=== PATIENT | male | born 1960 | race Caucasian/White ===

== ENCOUNTER 2021-11-24 14:02 | Outpatient (REF) | payer OTHER, SELFPAY ==
[2021-11-26 07:07] LABS: Lyme Abs Screen <0.90 index
== END 2021-11-24 14:03 | disposition home or self-care (01) ==
LOC: HO.MANLDS 14:02
PROVIDERS: PCP Physician Assistant; Visit Provider Physician Assistant
DX: T14.8XXA Other injury of unspecified body region, initial encounter (principal); L08.9 Local infection of the skin and subcutaneous tissue, unspecified; W57.XXXA Bitten or stung by nonvenomous insect and other nonvenomous arthropods, initial encounter; Y93.9 Activity, unspecified; Y92.9 Unspecified place or not applicable; Y99.9 Unspecified external cause status
CPT/HCPCS: 36415; 86617; 86618

== ENCOUNTER 2022-05-14 09:24 | Outpatient (REF) | payer OTHER, SELFPAY ==
[2022-05-14 11:10] LABS: MANUAL DIFF FLAG NO
[2022-05-14 11:19] LABS: Basophils Absolute Auto 0.1 X10*3/uL (0.0-0.2); Basophils Percent Auto 0.9 % (0-2); Eosinophils Absolute Auto 0.1 X10*3/uL (0.0-0.4); Hemoglobin 16.2 g/dl (14.0-18.0); Imm Gran Abs Auto 0.02 X10*3/uL (0.00-0.03); Imm Gran Pct Auto 0.3 % (0.0-0.4); Lymphocytes Absolute Auto 1.6 X10*3/uL (1.2-4.9); Lymphocytes Percent Auto 24.3 % (20-40); Mean Corpuscular HGB Conc 32.4 g/dl (31.0-36.0); Mean Corpuscular Hemoglobin 28.3 pg (27.0-33.0); Mean Corpuscular Volume 87.3 fL (80.0-98.0); Mean Platelet Volume 11.9 fL (9.4-12.4); Monocytes Absolute Auto 0.5 X10*3/uL (0.1-1.2); Monocytes Percent Auto 7.2 % (2-11); Neutrophils Absolute Auto 4.2 x10*3/uL (2.0-8.3); Neutrophils Percent Auto 65.3 % (45-73); Platelet Count 209 X10*3/uL (160-400); Red Blood Count 5.73 X10*6/uL (4.60-5.80); Red Cell Distribution Width 13.4 % (11.0-16.0); White Blood Count 6.4 X10*3/uL (4.8-10.8)
[2022-05-14 11:28] LABS: Estimated Average Glucose 117 mg/dL; Hemoglobin A1c % 5.7 %
[2022-05-14 11:46] LABS: Alanine Aminotransferase 92 U/L (0-40); Albumin Level 4.4 g/dL (3.5-5.0); Alkaline Phosphatase 68 U/L (39-117); Anion Gap 16 (12-20); Aspartate Amino Transferase 51 U/L (5-37); Bilirubin Total 0.8 mg/dL (0.0-1.0); Blood Urea Nitrogen 24 mg/dL (9-16); Calcium 9.7 mg/dL (8.4-10.2); Carbon Dioxide 26 mmol/L (22-29); Chloride 106 mmol/L (96-108); Cholesterol 211 mg/dL; Estimated Glomerular Filt Rate > 60; Glucose Random 110 mg/dL (60-115); HDL Cholesterol 48 mg/dL; LDL Cholesterol Calculated 140 mg/dl; Potassium 5.5 mmol/L (3.3-5.1); Sodium 142 mmol/L (135-145); Total Protein 7.1 g/dL (6.5-8.0); Triglycerides 117 mg/dL
[2022-05-14 12:07] LABS: Prostate Specific Antigen 0.73 ng/mL (<0.05-4.0); Vitamin D 25-OH Total 20.3 ng/mL (>30)
== END 2022-05-14 09:25 | disposition home or self-care (01) ==
LOC: HO.MANLDS 09:24
PROVIDERS: Visit Provider Internal Medicine
DX: Z00.01 Encounter for general adult medical examination with abnormal findings (principal); Z12.5 Encounter for screening for malignant neoplasm of prostate
CPT/HCPCS: 36415; 80053; 80061; 82306; 83036; 84153; 84443; 85025

== ENCOUNTER 2022-06-07 09:27 | Outpatient (REF) | payer OTHER, SELFPAY ==
[2022-06-07 11:24] LABS: Alanine Aminotransferase 83 U/L (0-40); Albumin Level 4.3 g/dL (3.5-5.0); Alkaline Phosphatase 70 U/L (39-117); Anion Gap 17 (12-20); Aspartate Amino Transferase 39 U/L (5-37); Bilirubin Direct 0.2 mg/dL (0.0-0.5); Bilirubin Total 0.8 mg/dL (0.0-1.0); Blood Urea Nitrogen 25 mg/dL (9-16); Calcium 9.4 mg/dL (8.4-10.2); Carbon Dioxide 26 mmol/L (22-29); Chloride 102 mmol/L (96-108); Estimated Glomerular Filt Rate > 60; Glucose Random 108 mg/dL (60-115); Potassium 4.6 mmol/L (3.3-5.1); Sodium 140 mmol/L (135-145); Total Protein 6.9 g/dL (6.5-8.0)
== END 2022-06-07 09:28 | disposition home or self-care (01) ==
LOC: HO.MANLDS 09:27
PROVIDERS: Visit Provider Internal Medicine
DX: R74.8 Abnormal levels of other serum enzymes (principal)
CPT/HCPCS: 36415; 80053; 82248

== ENCOUNTER 2024-05-21 12:43 | Outpatient (REF) | payer OTHER, SELFPAY ==
--- NOTE | ~2024-05-21 | XR_ITS ---
EXAMINATION: XR LUMBOSACRAL SPINE CLINICAL INFORMATION: M54.9 - Dorsalgia, unspecified COMPARISON: None available. TECHNIQUE: 4 views of the lumbar spine, inclusive of flexion and extension views, were obtained. FINDINGS: Normal bone mineralization. No fracture, compression deformity, or suspicious bone lesion. Trace levoconvex scoliosis apex at L4-5. Mild straightening of the normal lordosis. There is a trace degenerative anterolisthesis L3 on L4 and L4 on L5. Moderate degenerative disc changes L2-3-4 and L4-5. There has been fusion and discectomy with disc grafting at L5-S1. Degenerative facet changes are present spanning L3-S1. There is no developing or worsening subluxation on flexion-extension views to suggest instability. Soft tissues demonstrate minimal vascular calcifications. No additional abnormalities. XR/XR lumbar spine 4V min IMPRESSION: 1. No acute findings lumbar spine. 2. Discectomy and fusion L5-S1 without complication radiographically. 3. Degenerative spondylosis most significant L3-S1, with no evidence of instability on flexion and extension. Electronically signed by: Milan Mejia MD 07/29/2024 02:36 PM EST
== END 2024-05-21 12:44 | disposition home or self-care (01) ==
LOC: HO.HOSX 12:43
PROVIDERS: PCP Physician Assistant; Visit Provider Physician Assistant
DX: M54.9 Dorsalgia, unspecified (principal)
CPT/HCPCS: 72110

== ENCOUNTER 2024-05-21 12:43 | Outpatient (AMB) | payer OTHER, SELFPAY ==
--- NOTE | 2024-05-21 12:56 | A.SPINEOV_ITS ---
Intake Visit Reasons: LBP Intake Note: Mr. Hernández is here today c/o low back pain. 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 He is a 64-year-old gentleman who underwent an anterior lumbar interbody fusion at [facility] 17 years ago, had excellent results from that, started to develop worsening back pain and pain shooting down his left leg over time. He saw Dr. Lara at [facility] last year and underwent an L4-5 decompression on the left side which did help him for about 3 months with relief of his leg pain. It did not help his back pain however. Unfortunately he started to have worsening back pain now with pain shooting again down into his left buttock. 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 Unfortunately, [facility] point where the pain is becoming a major factor in his quality of life. He is seeking out a 2nd opinion as to whether or not surgery would be beneficial. He continues to work, but he can not be active for more than brief periods of time. He will try things like Lyrica in the evenings if he is having a real bad night. He tries to avoid this as it does give him side effects. Any bending or prolonged standing walking will give him significant pain in his central low back and shoots to his left buttock. Currently he takes diclofenac and as mentioned Lyrica if needed. [facility] Unfortunately the decrease in activity has made him gain weight. He has been to a chiropractor. He had tried cortisone injections years ago but nothing recently. Unfortunately they never really did much anyway. PMH: He is reasonably healthy otherwise, history of hypertension, L5-S1 anterior lumbar interbody fusion hernia repair in the groin, torn meniscus repair, carpal tunnel surgery. No heart disease, pulmonary, liver, GI, renal, bleeding disorders, blood clots, cancer etc.. Social hx: He does not smoke, occasional alcohol, no marijuana Medications: Diclofenac, losartan and Lyrica Allergies: None Physical exam: Awake alert oriented no acute distress, he has full strength bilateral lower extremities with normal reflexes. Has a well-healed vertical abdominal incision which is just to the left of his umbilicus. He has a well healed midline scar on his low back as well. Imaging review: There is a lumbar MRI from [facility] from 2022 showing postsurgical changes at L5-S1 with evidence of solid fusion construct. At L4-5 there is a left-sided laminotomy defect with postsurgical changes. I do see ongoing disc bulging causing some crowding of the central canal but the lateral recess with the L5 nerve passes through looks open. He does have Modic endplate changes on the right side with what looks like a Schmorl's node or a herniated disc up into the bone. Impression: 64-year-old male with history of previous anterior lumbar interbody fusion at L5-S1 17 years ago, who a few years ago started to develop back pain and left leg pain, underwent a left L4-[address] lara last year. It helped his leg pain for about 3 months but unfortunately the pain has come back. What he is dealing with now has a central midline back pain which radiates down into his left buttock. It is aggravated with standing walking but particularly bending can be quite difficult. Simple activities are difficult to get through such as yd work and basic physical activity. I went through his imaging with him, he does have advanced degeneration above the fusion at L4-5, with central disc herniation, crowding of the central canal. The lateral recess which was decompressed still appears to be adequately decompressed. This MRI however is a year old. I sent the patient for standing flexion-extension x-rays and I do not see any signs of overt instability but compared to the previous x-rays that were loaded onto the CD disc that he brought with him today I can see compared to 2019 there has been a slow progressive collapse of the disc on the right side at L4-5. 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 I think if we obtained a new MRI we would see that things are slightly worse than they were last year. If he consider surgery I think we should get a new MRI. Typically this is something that Dr. Ramon would treat with L4-5 oblique lumbar interbody fusion. He understands that a 2nd fusion would put him again at risk for further adjacent segment disease at L3-[address] I quoted success rate for the surgery at 60-70% for improvement in the back pain. We did briefly discuss risks, benefits of surgery. Will get back to me and let me know how he wishes to proceed. Thank you for allowing us to care for your patient. The total time spent with this visit with this patient was 45 minutes reviewing history, physical exam, lumbar imaging review, and implementation of treatment plan or further diagnostic testing Maxim Ramon MD,PhD [facility] Orders: Orders XR lumbar spine 4V min Today M54.9 - Dorsalgia, unspecified Coding Level of Care Code New Pt Level 4 (77274) Diagnoses Back pain M54.9
== END 2024-05-21 14:48 | disposition home or self-care (01) ==
PROVIDERS: PCP Physician Assistant; Referring Provider Physician Assistant; Visit Provider Physician Assistant
DX: M54.9 Dorsalgia, unspecified (principal)
CPT/HCPCS: 99204

== ENCOUNTER → 2024-05-21 13:36 | Outpatient (BNV) | payer OTHER, SELFPAY | PROVIDERS: PCP Physician Assistant; Visit Provider Radiology Diagnostic Radiology | DX: M47.896 Other spondylosis, lumbar region (principal) | CPT/HCPCS: 72110 ==

== ENCOUNTER 2024-11-02 14:48 | Outpatient (AMB) | payer OTHER, SELFPAY ==
--- NOTE | 2024-11-02 14:53 | A.SPINEOV_ITS ---
Vital Signs 11/02/24 14:54 Height 5 ft 10 in Weight 255 lb BMI 36.6 Intake Visit Reasons: discuss other treatment options Intake Note: Mr. Hernández is here to Discuss Surgery Guest Associate Required: No Physical Exam Vital Signs: BMI result Body Mass Index 36.6 Assessment & Plan Assessment & Plan (1) Back pain: Code(s): M54.9 - Dorsalgia, unspecified Category: Medical Plan Mr Hernández is here to follow-up. Please refer to my last note for the specifics of his problem. He underwent an anterior lumbar interbody fusion at L5-S1 [facility] t 20 years ago (no posterior instrumentation) with good success. In the last few years he has developed increasing back pain with left leg pain. Dr. Lara did a simple hemilaminotomy form in that helped slightly, but he is still having significant back pain in the center of his lower lumbar region. It is particularly bad when he is trying to stand, get up move around, bend or do any work in a flexed posture. Dr. Ramon and I previously reviewed his MRI done at [facility] showing adjacent segment disease and further disc collapse at L4-5 with disc degeneration. At the time of my original visit, he was hoping to avoid surgery because he was somewhat worried about the instrumentation giving him back pain. He came back today because the pain is now just getting to the point where it is intolerable. He has been through physical therapy, his chiropractor told him he could not help him any longer, he has lost 20 lb, he has been through injections at length, nonsteroidal anti- inflammatories, Tylenol etc. and he just can not get comfortable. He is still does have some of the lumbar radiculopathy from about the calf down to his foot, but the main complaint is the back pain. Dr. Ramon previously reviewed his films and thought he would be a good candidate for an oblique lumbar interbody fusion L4-5. He came back today to review that procedure at length. We disc ussed the procedure, using spine models and imaging on the computer outlining the procedure, approach. We discussed the recovery and the success rate for surgery, quoting at about 60-70%. The patient is interested in proceeding with surgery. His last MRI was from 2022 so I told him I would need updated lumbar MRI before we could consider surgery. Also, he did have standing x-rays done here at [facility]. These do show disc degeneration above his fusion. I will have him come back to the office on a day when Dr. Ramon is here to review the new MRI and discuss surgery again. Total amount of time spent in this visit was 20 minutes in discussion of symptoms, lumbar MRI imaging results and subsequent plan of care Maxim Ramon MD,PhD [facility] Orders: Orders MR lumbar spine wo con Today M54.9 - Dorsalgia, unspecified Coding Level of Care Code Est Pt Level 3 (77224) Diagnoses Back pain M54.9
[2024-11-02 14:54] VITALS: BMI 36.6
--- OUTSIDE RECORDS SUMMARY | 2024-11-02 16:16 | XMS_ITS | Data Portability ---
Author Organization [facility] Address [address] [place] [address] Assessment Encounter Date Assessment Date Assessment LastModified by Organization Details LastModified Time 05/13/2023 05/13/2023 [id number] [place] [id number] (SECURITY TECHNICIAN) MDM MODERATE MUST MEET 2 OUT OF 3 ELEMENTS: PROBLEMS, DATA OR RISK ELEMENT 1: PROBLEMS ADDRESSED 1 OR MORE CHRONIC ILLNESS WITH EXACERBATION OR 2 OR MORE STABLE CHRONIC ILLNESSES OR 1 UNDIAGNOSED NEW PROBLEM OR 1 ACUTE ILLNESS W/SYMPTOMS OR 1 ACUTE COMPLICATED INJURY ELEMENT 2: DATA MUST MEET 1 OF 3 CATEGORIES CATEGORY 1: REVIEW OF PRIOR EXTERNAL NOTES, REVIEW OF RESULTS, ORDERING OF EACH TEST, ASSESSMENT REQUIRING INDEPENDENT HISTORIAN OR CATEGORY 2: INDEPENDENT INTERPRETATION OF TESTS BY ANOTHER PHYSICIAN OR SPECIALIST OR CATEGORY 3: DISCUSSION OF MGT OR TEST INTERPRETATION W/EXTERNAL PHYSICIAN OR SPECIALIST ELEMENT 3: RISK RISK OF COMPLICATIONS AND/OR MORBIDITY OR MORTALITY OF PATIENT MANAGEMENT PROVIDER MUST THOROUGHLY DOCUMENT EACH ELEMENT THAT IS COVERED [email or web address] Not available 05/13/2023 16:09:27 Plan of Treatment Reminders Order Date Submit Date Provider Last Modified By Organization Details Last Modified Time Details Appointments ANNUAL EXAM 2024 11:30A M DR OBREGON Not available Not available Not available Lab CMP, serum or plasma 2023 MO[facility] (Centralized Electronic Ordering - All Locations), Patient Can Go To The Location Of Their Choice, [id number] 05/30/2024 04:21:32 CBC w/ auto diff 2023 MO[facility] (Centralized Electronic Ordering - All Locations), Patient Can Go To The Location Of Their Choice, [id number] 05/30/2024 04:21:32 PSA, serum or plasma 10/01/ 2024 10/01/2 024 MO[facility] (Centralized Electronic Ordering - All Locations), Patient Can Go To The Location Of Their Choice, [id number] 05/30/2024 04:21:32 lipid panel, blood 2023 024 MO[facility] (Centralized Electronic Ordering - All Locations), Patient Can Go To The Location Of Their Choice, [id number] 05/30/2024 04:21:32 vitami n D, 25-hyd stacey, total, serum 2023 024 MO[facility] (Centralized Electronic Ordering - All Locations), Patient Can Go To The Location Of Their Choice, [id number] 05/30/2024 04:21:31 HbA1c (hemog lobin A1c), blood 2022 023 [facility], [address] [place] [address], [place], [address], 05/17/2023 10:55:25 HbA1c (hemog lobin A1c), blood 2022 023 [facility], [place], [address], 05/16/2023 12:47:20 Referral gastro entero logist referr al 2023 024 [facility] , [address] [place] [address], [address], 03/30/2024 09:50:18 orthop edic surgeo n referr al 2023 024 [email or web address] 10 Macario Glez MD, [address] [place] [address], [address], 05/02/2024 08:25:18 orthop edic surgeo n referr al 2022 023 [email or web address] 10 [facility] (Damian Ybarra), [address] [place], [address], 12/10/2022 08:53:51 Procedures None record ed. Surgeries None record ed. Imaging MRI, lumbar spine, w/o contra st - Call Refere nce #: Rajat Nickerson 2022Keeley soluti on: Piyush tripp on 2022 at 11:10 am. Call ref #Rajat Nickerson 2022. 2022 023 [email or web address] 10 Not available 12/13/2022 08:33:18 MRI, thorac ic spine, w/o contra st - Call Refere nce #: Baylee [email or web address] 23Reso lution : Piyush tripp on 2022 at 10:16 am. Call ref #Levy [email or web address] 123. 2022 023 [email or web address] 10 Not available 12/13/2022 08:35:30 Medication Orders predni sone 10 mg tablet 2023 024 [facility]1234, [address] [place], [address], 05/22/2024 11:18:37 pregab brendan 75 mg capsul e 2022 023 [facility], [address], [place], [address], 05/13/2023 16:11:10 diclof enac sodium 75 mg tablet ,delay ed releas e 2022 023 [facility], [address] [place], [address], 05/13/2023 16:11:10 tramad ol 50 mg tablet 2022 023 [email or web address] [facility]/Pharmacy #1234, [address], [place], [address], 03/27/2024 14:28:56 predni sone 10 mg tablet 2022 023 [email or web address] [facility]/Pharmacy #1234, [address] [place], [address], 03/27/2024 14:28:21 Patient TargetsNo targets recorded. Patient InstructionsNo instructions recorded. Reason for Referral Orthopedic Surgeon Referral for Lumbar radiculopathy hx of spinal surgery with Dr. Galo; worsening symptoms Referring Physician: Francoise Paz, Internal Medicine, Encounter Date: 12/08/2022 Orthopedic Surgeon Referral for Degeneration of lumbar intervertebral disc second opinion for neuro surg consult for lumbar spine pain and reduced function Referring Physician: Francoise Paz, Internal Medicine, Encounter Date: 03/27/2024 Drum Plater Referral for Diarrhea Referring Physician: Francoise Paz, Internal Medicine, Encounter Date: 03/27/2024 Results Created Date Observation Date Name Description Value Unit Range Abnormal Flag Note LastModifiedBy Organization Detail LastModifiedTime 01/02/2012/29/2022 MRI, thora cic spine , w/o contr ast No observ ation record ed. [email or web address] [facility] (Scheduling Dept) [address] [place], [address], 05/13/2023 15:56:15 01/02/20 23 12/29/2022 MRI, thora cic spine , w/o contr ast No observ ation record ed. [email or web address] [place] [address] - Outpatient Radiology [address] [place] [address] , [place], [address], 05/13/2023 15:56:15 07/29/20 24 05/21/2024 XR, lumbo sacra l spine , 2 or 3 view No observ ation record ed. [address] [place], [address], 07/29/2024 20:07:04 Result Notes None recorded. Problems Name Problem SNOMED Code Status Onset Date Resolution Date Notes Provider Name and Address Organization Details Recorded Time Bilatera l carpal tunnel syndrome 01022789835 781667 Active 2018 Fortino Obregon, [address] [place], [address], [facility] 9 16:07:08 Osteoart hritis of right knee joint 45013745779 9100 Active 2021 Fortino Obregon, DO [address] [place] [address], [address], [facility] 2 15:35:03 Pain of right knee joint 80341076059 4100 Active 2021 Fortino Segovia Deniseha, DO [address] [place] [address], [address], [facility] 2 08:42:43 Dyspnea on exertion 56935508 Active 2021 Fortino YeungHilary Obregon, DO [address] [place] [address], [address], [facility] 2 10:37:46 Hyperkal emia 47190002 Active 2021 Fortino Obregon, DO [address] [place] [address], [address], [facility] 2 13:39:57 Liver enzymes level above referenc e range 820049900 Active 2021 Fortino Obregon, DO [address] [place] [address], [address], [facility] 2 09:01:34 Osteoart hritis 638874365 Active 2021 RASHMI BOLES [address] [place] [address], [address], [facility] 2 13:45:53 Paresthe yusuf of lower extremit y 082855478 Active 2022 Fortino Obregon, DO [address] [place] [address], [address], [facility] 3 16:21:27 Lumbar radiculo rhina 490773150 Active 2022 RASHMI BOLES [address] [place] [address], [address], [facility] 3 11:34:07 Spinal stenosis of lumbar region 90973654 Active 2022 RASHMI BOLES [address] [place], [address], [place] [facility] 3 10:08:17 Hypergly cemia 34440822 Active 2022 Fortino Obregon, DO [address] [place], [address], [facility] 3 16:09:47 Gastroes ophageal reflux disease 984693112 [facility] 09:26:44 Steatosi s of liver 034756951 Active 2017 [facility] 8 09:26:53 History of spinal fusion 71449306934 107 Active 2017 [facility] 8 09:27:03 Hyperten sive disorder 15294683 Active 2017 [facility] 8 09:27:07 Osteopen ia 332804104 Active 2017 [facility] 8 09:27:13 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 44831401 Active 2017 [facility] 8 09:27:53 History of hernia repair 56799445476 109 Active 2017 incarcera tripp L inguinal [facility] 8 09:28:36 Allergic rhinitis 76486665 Active 2017 Jonelle maguire [facility] 8 09:28:42 Gout 91044826 Active 2023 Fortino Obregon, DO [address] [place], [address], [facility] 4 13:40:53 Degenera tion of lumbar interver tebral disc 19575905 Active 2023 RASHMI BOLES [address] [place], [address], [facility] 4 14:43:39 Diarrhea 37407124 Active 2023 RASHMI BOLES [address] [place], [address], [facility] 4 14:53:19 Edema of lower extremit y 989304706 Active 2017 Fortino Obregon DO [address] [place], [address], [facility] 8 14:19:49 Problem Notes None recorded. Procedures Surgical History Date Name Laterality Status Provider Name and Address Organization Details Recorded Time 024 Colonoscopy completed Fortino Obregon DO [address] [place] [address], [address], [facility] 06/28/2024 20:54:11 022 Corticosteroid Injection completed Fortino Obregon DO [address] [place] [address], [address], [facility] 12/25/2021 15:37:16 Imaging Results Imaging Date Name Status LastModified by Organiz ation Details LastModified Time 12/29/2022 MRI, thoracic spine, w/o contrast completed [address] (Scheduling Dept) [address] [place], [address], 05/13/2023 15:56:15 12/29/2022 MRI, thoracic spine, w/o contrast completed [address] - Outpatient Radiology [address] [place] [address] [place], [address], 05/13/2023 15:56:15 05/21/2024 XR, lumbosacral spine, 2 or 3 view completed [address] [place], [address], 07/29/2024 20:07:04 Procedure Notes None recorded. Medical Equipment None Reported. Allergies No known drug allergies Medications Name Sig Start Date Stop Date Status Note LastModified by Organization Details LastModified Time losartan 50 mg tablet TAKE 1 TABLET BY MOUTH EVERY DAY 2024 active Not Available Not Available Not Avai lable prednisone 10 mg tablet TAKE 5 TABS BY MOUTH X 2 DAYS,4 TABS X 2 DAYS,3 TABS X 2 DAYS,2 TABS X 2 DAYS,THEN 1 TAB X 2 DAYS active Not Available Not Available No t Available tizanidine 4 mg tablet TAKE 1 TABLET BY MOUTH THREE TIMES A DAY NEEDED FOR MUSCLE SPASM FOR 2 WEEKS 03/27 completed Not Available Not Available Not Available meloxicam 15 mg tablet TAKE 1 TABLET BY MOUTH EVERY DAY 11/25 completed Not Available Not Available Not Available ondansetron HCl 4 mg tablet 11/25 completed Not Available Not Available Not Available prednisone 20 mg tablet TAKE 1 TABLET BY MOUTH EVERY DAY FOR 7 DAYS 11/10 completed Not Available Not Available Not Available felodipine ER 5 mg tablet,exte nded release 24 hr 11/23 completed Not Available Not Available Not Available sulfamethox azole 800 mg-trimetho prim 160 mg tablet TAKE 1 TABLET BY MOUTH TWICE A DAY FOR 7 DAYS 03/27 completed Not Available Not Available Not Available tramadol 50 mg tablet TAKE 1 TABLET BY MOUTH EVERY 6 HOURS NEEDED FOR 30 DAYS 03/27 completed Not Available Not Available Not Available oxycodone-a cetaminophe n 5 mg-325 mg tablet 06/22 completed Not Available Not Available Not Available methocarbam ol 750 mg tablet 11/23 completed Not Available Not Available Not Available meclizine 25 mg tablet 11/25 completed Not Available Not Available Not Available indomethaci n 50 mg capsule 11/23 completed Not Available Not Available Not Available diclofenac sodium 75 mg tablet,mario yed release TAKE 1 TABLET BY MOUTH TWICE A DAY NEEDED active Not Available Not Available No t Available felodipine ER 10 mg tablet,exte nded release 24 hr Take one tablet every day. 03/23 completed Not Available Not Available Not Available bisacodyl 5 mg tablet,mario yed release TAKE 4 TABLETS ORALLY DIRECTED FOR 1 DAY active Not Available Not Available No t Available lisinopril 5 mg tablet 11/23 completed Not Available Not Available Not Available hydrochloro thiazide 25 mg tablet Take 1 tablet(s) every day by oral route. 03/23 completed Not Available Not Available Not Available colchicine 0.6 mg tablet TAKE 1 TABLET BY MOUTH DIRECTED. 03/27 completed Not Available Not Available Not Available fluticasone propionate 50 mcg/actuati on nasal spray,suspe nsion [place] 1 spray every day by intranasa l route. 05/11 completed Not Available Not Available Not Available doxycycline hyclate 100 mg tablet TAKE 1 TABLET BY MOUTH TWICE A DAY FOR 10 DAYS 12/25 completed Not Available Not Available Not Available diazepam 5 mg tablet 06/22 completed Not Available Not Available Not Available oxycodone 5 mg tablet TAKE 1 TABLET BY MOUTH EVERY 6 HOURS FOR 1 WEEK NEEDED FOR MODERATE PAIN 03/27 completed Not Available Not Available Not Available valsartan 160 mg tablet TAKE 1 TABLET BY MOUTH EVERY DAY 01/29 completed Not Available Not Available Not Available Boostrix Tdap 2.5 Lf unit-8 mcg-5 Lf/0.5 mL intramuscul ar syringe 07/24 completed Not Available Not Available Not Available pregabalin 75 mg capsule TAKE 1 CAPSULE BY MOUTH TWICE A DAY 2024 active Not Available Not Available Not Avai lable diazepam qd 11/25 completed Not Available Not Available Not Available GaviLyte-G 236 gram-22.74 gram-6.74 gram-5.86 gram oral solution 11/23 completed Not Available Not Available Not Available Vitals Date Recorded Body height Body mass index (BMI) Body weight Heart rate Oxygen saturation Oxygen saturation in Arterial blood by Pulse oximetry Systolic blood pressure Diastolic blood pressure Provider Name and Address Organization Details Last Updated DateTime 3 173.99 cm 40 kg/m2 285383. 16 g 61 /min 98 % 98 % 185 mm[Hg] 80 mm[Hg] Marlyn Franklin [facility] 3 11:07:39 Date Recorded Body height Body mass index (BMI) Body weight Heart rate Oxygen saturation Oxygen saturation in Arterial blood by Pulse oximetry Systolic blood pressure Diastolic blood pressure Provider Name and Address Organization Details Last Updated DateTime 3 173.99 cm 39.1 kg/m2 029673. 61 g 94 /min 96 % 96 % 159 mm[Hg] 90 mm[Hg] Marlyn Franklin [facility] 3 15:32:44 Date Recorded Body height Body mass index (BMI) Body weight Heart rate Oxygen saturation Oxygen saturation in Arterial blood by Pulse oximetry Systolic blood pressure Diastolic blood pressure Provider Name and Address Organization Details Last Updated DateTime 3 173.99 cm 39 kg/m2 101096. 02 g 80 /min 95 % 95 % 130 mm[Hg] 80 mm[Hg] [facility] 3 10:22:55 Date Recorded Body height Body mass index (BMI) Body weight Heart rate Oxygen saturation Oxygen saturation in Arterial blood by Pulse oximetry Systolic blood pressure Diastolic blood pressure Provider Name and Address Organization Details Last Updated DateTime 4 173.99 cm 39 kg/m2 088025. 02 g 72 /min 98 % 98 % 150 mm[Hg] 80 mm[Hg] [facility] 4 14:30:40 Date Recorded Body height Body mass index (BMI) Body weight Heart rate Oxygen saturation Oxygen saturation in Arterial blood by Pulse oximetry Systolic blood pressure Diastolic blood pressure Provider Name and Address Organization Details Last Updated DateTime 4 173.99 cm 40 kg/m2 024343. 16 g 63 /min 95 % 95 % 138 mm[Hg] 70 mm[Hg] [facility] 4 10:55:45 Social History Question Answer Notes LastModified by Organizat ion Details LastModified Time Tobacco Smoking Status Never Smoker Not Available [facility] 06/[facility]/2020 03:36:23 What Was The Date Of Your Most Recent Tobacco Screening? 05/22/2024 [email or web address] Information not available 05/22/2024 Do You Or Have You Ever Used Any Other Forms Of Tobacco Or Nicotine? No [email or web address] Information not available 05/13/2023 Sex: Unknown Functional Status None recorded. Mental Status None recorded. Family History Nothing Reported. Medical History Condition Response Coronary Artery Disease N Other N Gout N Kidney Stones N Blood Diseases N Breast Cancer N Blood Transfusion N Depression N COPD N Lung Disease N Defects or Inherited Disease N Anxiety Disorder N Muscle, Joint, or Bone Problems N Obesity N Vision or Eye Problems N Arthritis N Polyps N Infertility N Mental Disorder N Cancer N Varicosities N Stroke N Endometriosis N Bladder or Kidney Problems N High Cholesterol N Liver Disease N Headaches N Fibromyalgia N Kidney Disease N Allergies/Hayfever N Heart Problems N Hospitalizations N Thyroid Problems N GI Problems N Skin Problems N Eating Disorder N Anemia N MRSA exposure N Constipation N Mental Illness N Ovarian Cancer N Diabetes N Seizures/Epilepsy N Tuberculosis N Congestive Heart Failure (CHF) N Eczema N Diverticulitis N Abuse/Domestic Violence N Asthma N Reflux/GERD N Hepatitis N Heart Disease N Pulmonary Embolism N Hypertension N Chicken Pox N Autism Spectrum Disorder (ASD) N Osteoporosis N Immunizations Vaccine Type Date Status Note Provider Nam e and Address Organization Details Recorded Time Tdap 01/17/2018 completed Jonelle Flores [facility] 07/24/2018 15:53:44 Past Encounters Encounter ID Performer Location Encounter Start Date Encounter Closed Date Diagnosis/Indication Diagnosis SNOMED-CT Code Diagnosis ICD10 Code Diagnosis Note [id number] Fortino Obregon [facility] [address], [place] [address] 11/23/2017 11:50:27 11/23/2017 12:30:17 Edema of lower extremity 911924955 R60.0 edema from amlodipine told to elevate legs and take new med and stop amlodipine [id number] Fortino Obregon DO [facility] [address], [employer] [email or web address] [address] 01/17/2018 14:03:07 01/17/2018 15:31:23 Hypertensive disorder 40057227 I10 doing great at this point Edema of l ower extremity 397013819 R60.0 edema from amlodipine told to elevate legs and take new med and stop amlodipine 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 00084630 M51.34 Active or passive immunization 571280551 Z23 tdap at pharmacy Laceration of finger 274 014657 S61.219A steri strip closure and sterile dressings [id number] Fortino Obregon [facility] [address], [place] [address] 07/24/2018 15:19:25 07/24/2018 16:03:58 Hypertensive disorder 20432139 I10 ok right here but has been consistent ly elevated at home is starting to get headaches also has been noting episodes of lightheade dness and spacey feeling he does have dm in the family will give him a glucometer to check his sugars and he hansel check bp and will have him follow closely Tick bite 46942863 W57.X XXA prob lyme disease [id number] Fortino Segovia Peri [facility] [address],[place] [address] 07/31/2018 15:32:57 07/31/2018 16:45:36 Hypertensive disorder 53090908 I10 ok right here but has been consistent ly elevated at home still bp is decent here in office using non automated cuff he hansel check bp and will have him follow closely he had cjhecked his glucose when light headed and it was 98 Steatosis of liver 1007 K76.0 will cont to lose wgt and we will follow with more lab when approp Allergic rhinitis 592101 04 J30.9 quiet [id number] Fortino Segovia Peri [facility] [address],[place] [address] 03/23/2019 15:40:37 03/23/2019 16:15:59 Hypertensive disorder 57303713 I10 ok right here but has been consistent ly elevated at home still bp is decent here in office using non automated cuff he hansel check bp and will have him follow closely will stop the hctz as he has been getting too light headed will keep an eye on his bp will be eating keto and losing wgt he had cjhecked his glucose when light headed and it was 98 Bilateral carpal tunnel syndrome 7223168555 0131672 G56.03 needs a referral to surgeon Incontinence of feces 72 932966 R15.9 [id number] [facility] [address],[place] [address] 06/15/2019 13:30:22 06/15/2019 15:15:47 Liver enzymes level above reference range 544343184 R74.8 will repeat test no risk factors and is assoc with the fatty liver Steatosis of liver 1007 K76.0 will cont to lose wgt and we will follow with more lab when approp Hypertensive disorder 38 079055 I10 ok right here but has been consistent ly elevated at home still bp is decent here in office using non automated cuff he hansel check bp and will have him follow closely stopped the hctz as he has been getting too light headed and he has felt much better since eating keto and cont losing wgt >15lbs [id number] Bianca Payam, [facility] Internal Medicine [address], [place] [address] 06/22/2019 15:46:24 06/22/2019 16:37:52 Hypertensive disorder 73734358 I10 no longer on bp meds as of 2-3 months ago due to possible drug side effect states needs to lose weight bp was higher at other offices supposed to be monitoring BP at home = will give guidelines to call for BP persistent ly elevated above 140/90 Gastroesop hageal reflux disease 734120236 K21.9 asx 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 85467864 M51.34 on meloxicam Tick bite without infection 505892484 T14.8XXD monitor for signs of infection/ bullseye appears to be healing well at this time [id number] Bianca Hare [facility] [address], mary k[facility] [place] [address] 07/16/2019 08:57:33 07/16/2019 10:06:09 Essential hypertension 47662821 I10 Low back pain 060109463 M54.5 meloxicam not really helpful hansel try diclofenac bid prn considerin g PT - will call Gastroesop hageal reflux disease 117428069 K21.9 asx [id number] Fortino Obregon [facility] [address],[place] [address] 11/16/2019 09:49:23 11/16/2019 10:20:00 Benign paroxysmal positional vertigo 713140206 H81.10 Fever 055884002 R50.9 now resolved working dx is a virus with URI causing a vertigo rxn no sob sl cough afeb now [id number] Fortino Obregon [facility] Internal Medicine [address] [facility] [address] [address] 11/25/2020 14:48:58 11/25/2020 15:51:09 Hypertensive disorder 69237999 I10 ok right here but has been consistent ly elevated at home still bp is decent here in office using non automated cuff he hansel check bp and will have him follow closely stopped the hctz as he has been getting too light headed and he has felt much better since eating keto and cont losing wgt >15lbs Gastroesop hageal reflux disease 382201358 K21.9 no change in tx Edema of l ower extremity 496807159 R60.0 edema from amlodipine told to elevate legs and take new med and stop amlodipine Dyspnea on exertion 6084 5006 R06.09 worrisome this is cardiac and we need to hopefully prove this is deconditio jayesh only Sleep apnea 54379676 G47 .30 [id number] RASHMI BOLES [facility] Internal Medicine [address] [facility] [address] [address] 08/25/2021 08:51:34 08/26/2021 13:42:49 Essential hypertension 82472769 I10 stable Low back pain 230323492 M54.59 stable on medication takes PRN with food per instructio nsavoid use with alcohol and other NSAIDs Multiple b enign melanocytic nevi 917139750 D22.5 refer to [facility] for eval and biopsy Gastroesop hageal reflux disease 041375616 K21.9 stable [id number] RASHMI BOLES [facility] [facility] [address] [facility] [address],[place] [facility] [place] [address] 11/18/2021 09:18:00 11/18/2021 14:30:40 Anterior knee pain [id number] M25.561 will fu with XRhistory of right knee arthoscopy Infection of tick bite [id number] W57.XXXA will start on abx and fu with lyme panel [id number] Fortino Obregon DO [facility] [address] [facility] [address] [facility] [place] [address] 12/25/2021 14:55:02 12/28/2021 11:48:02 Hypertensive disorder [id number] I10 ok right here but has been consistent ly elevated at home still bp is decent here in office using non automated cuff he hansel check bp and will have him follow closely stopped the hctz as he has been getting too light headed and he has felt much better since eating keto and cont losing wgt >15lbs we will try to keep him on losartan which worked the best Osteoarthr itis of right knee joint [id number] M17.11 saul inj well toerated [id number] Fortino Obregon DO [facility] [address] [facility] [facility] [place] [address] 05/11/2022 09:57:07 05/11/2022 10:46:52 Active or passive immunization [id number] Z23 tdap at pharmacy Adult [facility] th examination [id number] Z00.01 pt has gained more weight has become more deconditio kevin more sobdaytime somnolence he is not wearing cpap says he does not tolerate has evid of cts bilat L>Rhas noted djd changes in hands and kneesright knee with noted effusion Dyspnea on exertion 6084 5006 R06.09 worrisome this is cardiac and we need to hopefully prove this is deconditio jayesh only [id number] RASHMI BOLES [facility] [address] [facility] [address] 12/08/2022 11:00:10 12/08/2022 12:03:20 Lumbar radiculopathy [id number] M54.16 agreed to MRI lumbar and thoracicst art tramadol and prednisone can use diclofenac 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 54650061 M51.34 will fu with patient after MRIs [id number] Fortino Obregon DO [facility] [address] [facility] [address] 05/13/2023 15:27:13 05/13/2023 16:27:19 Gastroesophageal reflux disease [id number] K21.9 no change in tx Spinal kali nosis of lumbar region 61691056 M48.062 needs to lose the wgt as well Bilateral carpal tunnel syndrome [id number] 7030410 G56.03 needs a referral to surgeon when ready but NCT is not since before 2018 Low back pain 547364964 M54.50 Hyperglycemia 83379700 R 73.9 [id number] Fortino Obregon DO [facility] [address] [facility],[place] [address] 05/17/2023 10:17:49 05/17/2023 11:24:26 Active or passive immunization [id number] Z23 tdap at pharmacy Adult heal th examination 908299814 Z00.00 pt has gained more weight has become more deconditio kevin more sobdaytime somnolence he is not wearing cpap says he does not tolerate has evid of cts bilat L>Rhas noted djd changes in hands and kneesright knee with noted effusion 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 00228470 M51.34 Dyspnea on exertion 6084 5006 R06.09 worrisome this is cardiac and we need to hopefully prove this is deconditio jayesh only Hyperglycemia 78557638 R 73.9 we will rech a1c in 2 months Hyperkalemia 95303702 E8 7.5 Hypertensive disorder 38 093601 I10 ok right here but has been consistent ly elevated at home still bp is decent here in office using non automated cuff he hansel check bp and will have him follow closely stopped the hctz as he has been getting too light headed and he has felt much better since eating keto and cont losing wgt >15lbs we will try to keep him on losartan which worked the best [id number] RASHMI BOLES [facility] [address] [facility] [address] [place] [address] 03/27/2024 14:18:11 03/27/2024 16:40:14 Degeneration of lumbar intervertebral disc 31012631 M51.36 would like a second Screening for malignant neoplasm of colon 317938923 Z12.11 agreed to colonoscop y Diarrhea 40111701 A07.8 will set up with GI for fu colonoscop y [id number] Fortino Obregon DO [facility] [address] [facility] [address],[place] [address] 05/22/2024 10:49:58 05/22/2024 11:39:49 Hypertensive disorder 13091426 I10 ok right here but has been consistent ly elevated at home still bp is decent here in office using non automated cuff he hansel check bp and will have him follow closely stopped the hctz as he has been getting too light headed and he has felt much better since eating keto and cont losing wgt >15lbs we will try to keep him on losartan which worked the best 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 48321866 M51.34 Lumbar radiculopathy 128 983313 M54.16 awaiting Delta reply Adult heal th examination 754663992 Z00.00 still struggling with the backwill need to get fbw Health Concerns Section Related Observation LastModified by Organization Detai ls LastModified Time None Recorded Concern Status LastModified by Organization Details LastModified Time None Recorded Advance Directives Directive None Recorded Payers Encounter Date Sequence Insurance Name Policy Number Policy Cedeno Covered Member ID Cedeno Member ID Guarantor Name 12/08/2022 1 [employer] [place] [id number] Remy D Edgar [id number] [address] 05/13/2023 1 [employer] [place] [id number] Remy D Imperial [id number] 196 Remy [place] 05/17/2023 1 [employer] [place] [id number] Remy D Imperial [id number] 196 Remy [address] 03/27/2024 1 [employer] [place] [id number] Remy D Edgar [id number] 196 [address] 05/22/2024 1 [employer] [place] [id number] Remy D Imperial [id number] 196 Remy Edgar Notes Date Note Type Note Provider Name and Address Organization Details Recorded Time 3 text/html c/o back pain the patient reports that 15 years ago he had a spinal fusion > done by Dr. White patient reports that he developed recently lumbar radiculopathy in both his legsfeels tingling, foot drop left foot (right too to a lesser extent) the patient had seen chiropractorimaging shows sig change in lumbar spine with collapse above the fusion site agreed to fu with MRI and sent in referral to [facility] given tramadol and pred for the discomfort in the meantime RASHMI BOLES [address] [place] [address], [place], [address], [facility] 12/08/2022 11:52:10 3 text/html here for rechk and is doing the same Fortino Obregon [address] [place], [address], [facility] 05/13/2023 16:12:19 3 text/html Annual WellnessReported bypatient.Diet and Nutrition:healthy diet Fracture Risk:no history of fractures; no recent explained fracture; no sudden unexplained fractures; no previous musculoskeletal injuries Physical Activity:exercises on a regular basis; recent increase in physical activity; good physical condition Additional Lifestyle Factors:no tobacco use; no alcohol intake; stopped drinking alcohol Depression Risk:never feels sad, empty, or tearful; no loss of interest in activities; no significant changes in weight; no sleep disturbances or insomnia; no agitation; no loss of energy; no feelings of worthlessness or guilt; no thoughts of suicide; no history of depression; no history of mood disorders Hearing:no loss of hearing Vision:no vision problems Fortino ObregonDO [address] [place], [address], [facility] 05/17/2023 10:55:07 4 text/html f/o lumbar spine pain the patient is doing okaystill having a lot of back pain, lumbar spine painh/x of fusion L5-S1 about 17 years agorecently had another surgery with Dr. Lara out [facility] for the other levels of his lumbar spine, L3-L4, discetomy, nerve decompression, still having a lot of pain, has a limp that worsens as he goes about his dayhas had to stop playing call since he can no longer twist his backKalia's office said there is nothing further than can do for him at this time would like a second opinion for other interventions that may help himreferral placed having diarrhea and constipationalready overdue for his repeat colonoscopy will fu with patient GI referral RASHMI BOLES [address] [place], [address], [facility] 03/27/2024 15:03:31 4 text/html here for cpebiggest issue is his back still waiting on [place] to respondseen by dr glez office Fortino Obregon, DO [address] [facility], [place], [address], [facility] 05/22/2024 11:24:35
== END 2024-11-02 15:39 | disposition home or self-care (01) ==
LOC: HO.HNS 14:49
PROVIDERS: PCP Physician Assistant; Visit Provider Physician Assistant
DX: M54.9 Dorsalgia, unspecified (principal)
CPT/HCPCS: 99213

== ENCOUNTER → 2024-11-02 14:48 | Outpatient (BNVA) | payer OTHER, SELFPAY | PROVIDERS: PCP Physician Assistant; Visit Provider Physician Assistant ==

== ENCOUNTER 2024-11-09 13:37 | Outpatient (REF) | payer OTHER, SELFPAY ==
--- NOTE | ~2024-11-09 | MR_ITS ---
EXAMINATION: MR LUMBAR SPINE WITHOUT CONTRAST CLINICAL INFORMATION: Dorsalgia, unspecified. COMPARISON: July 02, 2023. TECHNIQUE: MRI of the lumbar spine was obtained using routine sequences without contrast. FINDINGS: Last rib-bearing vertebra labeled T12. Intervertebral disc spacer resulting in anterolisthesis at L5-S1. Modic type II endplate changes at L4-5. Subchondral cyst formation and endplate irregularity at L4-5. Large Schmorl node inferior endplate of L4. No gross malalignment. Conus medullaris ends at pedicle of L1 with normal signal. T12-L1: No disc herniation. No neuroforamina stenosis. L1-2: Broad-based disc bulging. Facet joint hypertrophy. No compression upon neural elements. L2-3: Broad-based disc bulging. Facet joint and ligamentum flavum hypertrophy. No compression upon neural elements. L3-4: Broad-based disc bulging. Facet joint and ligamentum flavum hypertrophy. Reduced AP diameter of the thecal sac and neuroforamina. L4-5: Central broad-based disc herniation. Facet joint and ligamentum flavum hypertrophy. Reduced AP diameter of the thecal sac and the neural foramina likely encroaching the neural elements. L5-S1: Postsurgical changes. Facet joint hypertrophy. No compression upon neural elements. No prevertebral compartment hematoma, mass or fluid collection. MR/MR lumbar spine wo con IMPRESSION: Central broad-based disc herniation L4-5 and spondylosis resulting in central spinal canal and neuroforamina stenosis encroaching the neural elements. Spondylosis L3-4 resulting in bilateral neuroforamina narrowing. Overall similar since prior exam. Electronically signed by: Hal Murphy MD 11/12/2024 07:17 AM EDT
--- OUTSIDE RECORDS SUMMARY | 2024-11-09 15:56 | XMS_ITS | Data Portability ---
Author Organization [facility] Home Service Address [address] [place] [address] Assessment Encounter Date Assessment Date Assessment LastModified by Organization Details LastModified Time 05/13/2023 05/13/2023 [id number] [place] [id number] ([employer]AL[employer] [place]) MDM MODERATE MUST MEET 2 OUT OF [...] Go To The Location Of Their Choice, [id number] 05/30/2024 04:21:32 CBC w/ auto diff 2023 MOY [facility] (Centralized Electronic Ordering - All Locations), Patient Can Go To The Location Of Their Choice, [id number] 05/30/2024 04:21:32 PSA, serum or plasma 10/01/ 2024 10/01/2 024 MO[facility] (Centralized Electronic Ordering - All Locations), Patient Can Go To The Location Of Their Choice, [id number] 05/30/2024 04:21:32 lipid panel, blood 2023 024 [facility] (Centralized Electronic Ordering - All Locations), Patient Can Go To The Location Of Their Choice, [id number] 05/30/2024 04:21:32 vitami n D, 25-hyd stacey, total, serum 2023 024 [facility] (Centralized Electronic Ordering - All Locations), Patient Can Go To The Location Of Their Choice, [id number] 05/30/2024 04:21:31 HbA1c (hemog lobin A1c), blood 2022 023 [facility], [address] [place] [address], [place], [address], 05/17/2023 10:55:25 HbA1c (hemog lobin A1c), blood 2022 023 [facility], [place], [address], 05/16/2023 12:47:20 Referral gastro entero logist referr al 2023 024 [facility] , [address] [place] [address], [address], 03/30/2024 09:50:18 orthop edic surgeo n referr al 2023 024 [email or web address] 10 Macario Glez MD, [address] [place] [address], [address], 05/02/2024 08:25:18 orthop edic surgeo n referr al 2022 023 [email or web address] 10 [facility] (Damian Ybarra), [address] [place], [address], 12/10/2022 08:53:51 Procedures None record ed. Surgeries None record ed. Imaging MRI, lumbar spine, w/o contra st - Call Refere nce #: Rajat Nickerson 2022Keeley soluti on: Piyush tripp on 2022 at 11:10 am. Call ref #Rajat Nickerson 2022. 2022 023 [email or web address] 10 Not available 12/13/2022 08:33:18 MRI, thorac ic spine, w/o contra st - Call Refere nce #: Baylee [id number] 23Reso lution : Piyush tripp on 2022 at 10:16 am. Call ref #Levy [id number] 123. 2022 023 [email or web address] 10 Not available 12/13/2022 08:35:30 Medication Orders predni sone 10 mg tablet 2023 024 [facility]/Pharmacy #1234, [address] [place], [address], 05/22/2024 11:18:37 pregab brendan 75 mg capsul e 2022 023 [facility]/Pharmacy #1234, [address] [facility], [place], [address], 05/13/2023 16:11:10 diclof enac sodium 75 mg tablet ,delay ed releas e 2022 023 [facility]/Pharmacy #1234, [address] [place], [address], 05/13/2023 16:11:10 tramad ol 50 mg tablet 2022 023 [email or web address] [facility], [address] [facility], [place], [address], 03/27/2024 14:28:56 predni sone 10 mg tablet 2022 023 [email or web address] [facility], [address] [place], [address], 03/27/2024 14:28:21 Patient TargetsNo targets recorded. Patient [...] Francoise Paz, Internal Medicine, Encounter Date: 03/27/2024 [employer] Referral for Diarrhea Referring Physician: Francoise Paz, Internal Medicine, Encounter Date: 03/27/2024 Results Created Date Observation Date Name Description Value Unit Range Abnormal Flag Note LastModifiedBy Organization Detail LastModifiedTime 01/02/2012/29/2022 MRI, thora cic spine , w/o contr ast No observ ation record ed. [email or web address] [facility] (Scheduling Dept) [address] [place], [address], 05/13/2023 15:56:15 01/02/20 23 12/29/2022 MRI, thora cic spine , w/o contr ast No observ ation record ed. [email or web address] [place] [address] - Outpatient Radiology [address] [place] [address] , [place], [address], 05/13/2023 15:56:15 07/29/20 24 05/21/2024 XR, lumbo sacra l spine , 2 or 3 view No observ ation record ed. [address] [place], [address], 07/29/2024 20:07:04 Result Notes None recorded. Problems Name Problem SNOMED Code Status Onset Date Resolution Date Notes Provider Name and Address Organization Details Recorded Time Bilatera l carpal tunnel syndrome 46268631351 495469 Active 2018 Fortino Obregon, [address] [place], [address], [facility] 9 16:07:08 Osteoart hritis of right knee joint 48282490354 9100 Active 2021 Fortino Obregon, DO [address] [place] [address], [address], [facility] 2 15:35:03 Pain of right knee joint 49302447655 4100 Active 2021 Fortino Segovia Deniseha, DO [address] [place] [address], [address], [facility] 2 08:42:43 Dyspnea on exertion 37716130 Active 2021 Fortino YeungHilary Obregon, DO [address] [place] [address], [address], [facility] 2 10:37:46 Hyperkal emia 96737259 Active 2021 Fortino Obregon, DO [address] [place] [address], [address], [facility] 2 13:39:57 Liver enzymes level above referenc e range 541061544 Active 2021 Fortino Obregon, DO [address] [place] [address], [address], [facility] 2 09:01:34 Osteoart hritis 616058260 Active 2021 RASHMI BOLES [address] [place] [address], [address], [facility] 2 13:45:53 Paresthe yusuf of lower extremit y 428115614 Active 2022 Fortino Obregon, DO [address] [place] [address], [address], [facility] 3 16:21:27 Lumbar radiculo rhina 615257232 Active 2022 RASHMI BOLES [address] [place] [address], [address], [facility] 3 11:34:07 Spinal stenosis of lumbar region 74674780 Active 2022 RASHMI BOLES [address] [place], [address], [place] [facility] 3 10:08:17 Hypergly cemia 35496665 Active 2022 Fortino Obregon, DO [address] [place], [address], [facility] 3 16:09:47 Gastroes ophageal reflux disease 472984224 Active 2017 [facility] 8 09:26:44 Steatosi s of liver 577147395 Active 2017 [facility] 8 09:26:53 History of spinal fusion 79864222534 107 Active 2017 [facility] 8 09:27:03 Hyperten sive disorder 58665827 Active 2017 [facility] 8 09:27:07 Osteopen ia 233731583 Active 2017 [facility] 8 09:27:13 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 72992989 Active 2017 [facility] 8 09:27:53 History of hernia repair 95301753991 109 Active 2017 incarcera tripp L inguinal [facility] 8 09:28:36 Allergic rhinitis 08895341 Active 2017 Jonelle maguire [facility] 8 09:28:42 Gout 27921895 Active 2023 Fortino Obregon, DO [address] [place], [address], [facility] 4 13:40:53 Degenera tion of lumbar interver tebral disc 10429504 Active 2023 RASHMI BOLES [address] [place], [address], [facility] 4 14:43:39 Diarrhea 24053804 Active 2023 RASHMI BOLES [address] [place], [address], [facility] 4 14:53:19 Edema of lower extremit y 612088348 Active 2017 Fortino Obregon DO [address] [place], [address], [facility] 8 14:19:49 Problem Notes None recorded. Procedures Surgical History Date Name Laterality Status Provider Name and Address Organization Details Recorded Time 024 Colonoscopy completed Fortino Obregon DO [address] [place] [address], [address], [facility] 06/28/2024 20:54:11 022 Corticosteroid Injection completed Fortino Obregon DO [address] [place] [address], [address], [facility] 12/25/2021 15:37:16 Imaging Results Imaging Date Name Status LastModified by Organiz ation Details LastModified Time 12/29/2022 MRI, thoracic spine, w/o contrast completed [address] (Scheduling Dept) [address] [place], [address], 05/13/2023 15:56:15 12/29/2022 MRI, thoracic spine, w/o contrast completed [address] - Outpatient Radiology [address] [place] [address] [place], [address], 05/13/2023 15:56:15 05/21/2024 XR, lumbosacral spine, 2 or 3 view completed [address] [place], [address], 07/29/2024 20:07:04 Procedure Notes None recorded. Medical [...] propionate 50 mcg/actuati on nasal spray,suspe nsion [place] 1 spray every day by intranasa l [...] Updated DateTime 3 173.99 cm 40 kg/m2 197677. 16 g 61 /min 98 % 98 % 185 mm[Hg] 80 mm[Hg] Marlyn Franklin [facility] 3 11:07:39 Date Recorded Body height Body mass index (BMI) Body weight Heart rate Oxygen saturation Oxygen saturation in Arterial blood by Pulse oximetry Systolic blood pressure Diastolic blood pressure Provider Name and Address Organization Details Last Updated DateTime 3 173.99 cm 39.1 kg/m2 350069. 61 g 94 /min 96 % 96 % 159 mm[Hg] 90 mm[Hg] Marlyn Franklin [facility] 3 15:32:44 Date Recorded Body height Body mass index (BMI) Body weight Heart rate Oxygen saturation Oxygen saturation in Arterial blood by Pulse oximetry Systolic blood pressure Diastolic blood pressure Provider Name and Address Organization Details Last Updated DateTime 3 173.99 cm 39 kg/m2 662281. 02 g 80 /min 95 % 95 % 130 mm[Hg] 80 mm[Hg] [facility] 3 10:22:55 Date Recorded Body height Body mass index (BMI) Body weight Heart rate Oxygen saturation Oxygen saturation in Arterial blood by Pulse oximetry Systolic blood pressure Diastolic blood pressure Provider Name and Address Organization Details Last Updated DateTime 4 173.99 cm 39 kg/m2 664473. 02 g 72 /min 98 % 98 % 150 mm[Hg] 80 mm[Hg] [facility] 4 14:30:40 Date Recorded Body height Body mass index (BMI) Body weight Heart rate Oxygen saturation Oxygen saturation in Arterial blood by Pulse oximetry Systolic blood pressure Diastolic blood pressure Provider Name and Address Organization Details Last Updated DateTime 4 173.99 cm 40 kg/m2 754192. 16 g 63 /min 95 % 95 % 138 mm[Hg] 70 mm[Hg] [facility] 4 10:55:45 Social History Question Answer Notes LastModified by Organizat ion Details LastModified Time Tobacco Smoking Status Never Smoker Not Available [facility] 06/24/2020 03:36:23 What Was The Date Of Your Most Recent Tobacco Screening? 05/22/2024 [email or web address] Information not available 05/22/2024 Do You Or Have You Ever Used Any Other Forms Of Tobacco Or Nicotine? No [email or web address] Information not available 05/13/2023 Sex: Unknown Functional Status None recorded. Mental Status None recorded. Family History Nothing Reported. Medical History Condition Response Coronary Artery Disease N Gout N Other N Kidney Stones N Blood Diseases N Blood Transfusion N Breast Cancer N Lung Disease N Depression N COPD N Defects or Inherited Disease N Anxiety Disorder N Muscle, Joint, or Bone Problems N Obesity N Vision or Eye Problems N Arthritis N Infertility N Polyps N Mental Disorder N Cancer N Stroke N Varicosities N Endometriosis N Bladder or Kidney Problems N High Cholesterol N Liver Disease N Fibromyalgia N Headaches N Kidney Disease N Allergies/Hayfever N Heart Problems N Hospitalizations N Thyroid Problems N GI Problems N Eating Disorder N Skin Problems N Anemia N MRSA exposure N Constipation N Mental Illness N Diabetes N Ovarian Cancer N Seizures/Epilepsy N Tuberculosis N Congestive Heart Failure (CHF) N Eczema N Abuse/Domestic Violence N Diverticulitis N Asthma N Reflux/GERD N Hepatitis N Heart Disease N Pulmonary Embolism N Hypertension N Chicken Pox N Autism Spectrum Disorder (ASD) N Osteoporosis N Immunizations Vaccine Type Date Status Note Provider Nam e and Address Organization Details Recorded Time Tdap 01/17/2018 completed Jonelle Flores [facility] 07/24/2018 15:53:44 Past Encounters Encounter ID Performer Location Encounter Start Date Encounter Closed Date Diagnosis/Indication Diagnosis SNOMED-CT Code Diagnosis ICD10 Code Diagnosis Note [id number] Fortino Obregon [facility] [address] [facility], [place] [address] 11/23/2017 11:50:27 11/23/2017 12:30:17 Edema of lower extremity 479365904 R60.0 edema from amlodipine told to elevate legs and take new med and stop amlodipine [id number] Fortino Obregon DO [facility] [address] [facility], [place] [address] 01/17/2018 14:03:07 01/17/2018 15:31:23 Hypertensive disorder 10184746 I10 doing great at this point Edema of l ower extremity 633041872 R60.0 edema from amlodipine told to elevate legs and take new med and stop amlodipine 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 24066310 M51.34 Active or passive immunization 509819059 Z23 tdap at pharmacy Laceration of finger 274 072227 S61.219A steri strip closure and sterile dressings [id number] Fortino Obregon [facility] [address] [facility], [place] [address] 07/24/2018 15:19:25 07/24/2018 16:03:58 Hypertensive disorder 23424985 I10 ok right here but has been consistent ly elevated at home is starting to get headaches also has been noting episodes of lightheade dness and spacey feeling he does have dm in the family will give him a glucometer to check his sugars and he hansel check bp and will have him follow closely Tick bite 86427826 W57.X XXA prob lyme disease [id number] Fortino Segovia Peri [facility] [address] [facility],[place] [address] 07/31/2018 15:32:57 07/31/2018 16:45:36 Hypertensive disorder 11217966 I10 ok right here but has been [...] with more lab when approp Allergic rhinitis 227747 04 J30.9 quiet [id number] Fortino Segovia Peri [facility] [address] [facility],[place] [address] 03/23/2019 15:40:37 03/23/2019 16:15:59 Hypertensive disorder 01423713 I10 ok right here but has been [...] it was 98 Bilateral carpal tunnel syndrome 0430556822 1886778 G56.03 needs a referral to surgeon Incontinence of feces 72 030178 R15.9 [id number] [facility]ilary [facility] [address] [facility],[place] [address] 06/15/2019 13:30:22 06/15/2019 15:15:47 Liver enzymes level above reference range 155613943 R74.8 will repeat test no risk factors and is assoc with the fatty liver Steatosis of liver 1007 K76.0 will cont to lose wgt and we will follow with more lab when approp Hypertensive disorder 38 527935 I10 ok right here but has been consistent ly elevated at home still bp is decent here in office using non automated cuff he hansel check bp and will have him follow closely stopped the hctz as he has been getting too light headed and he has felt much better since eating keto and cont losing wgt >15lbs [id number] Bianca Payam, [facility] Internal Medicine [address] [facility], [place] [address] 06/22/2019 15:46:24 06/22/2019 16:37:52 Hypertensive disorder 34200576 I10 no longer on bp meds as of 2-3 months ago due to possible drug side effect states needs to lose weight bp was higher at other offices supposed to be monitoring BP at home = will give guidelines to call for BP persistent ly elevated above 140/90 Gastroesop hageal reflux disease 350168988 K21.9 asx 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 09924985 M51.34 on meloxicam Tick bite without infection 706318293 T14.8XXD monitor for signs of infection/ bullseye appears to be healing well at this time [id number] Bianca Hare [facility] [address] [facility], mary kate [facility] [address] 07/16/2019 08:57:33 07/16/2019 10:06:09 Essential hypertension 20025864 I10 Low back pain 221696086 M54.5 meloxicam not really helpful hansel try diclofenac bid prn considerin g PT - will call Gastroesop hageal reflux disease 177144032 K21.9 asx [id number] Fortino Obregon [facility] [address] [facility],[place] [address] 11/16/2019 09:49:23 11/16/2019 10:20:00 Benign paroxysmal positional vertigo 441179033 H81.10 Fever 626536562 R50.9 now resolved working dx is a virus with URI causing a vertigo rxn no sob sl cough afeb now [id number] Fortino Obregon [facility] [address] [facility] [address] [place] [address] 11/25/2020 14:48:58 11/25/2020 15:51:09 Hypertensive disorder 93169992 I10 ok right here but has been consistent ly elevated at home still bp is decent here in office using non automated cuff he hansel check bp and will have him follow closely stopped the hctz as he has been getting too light headed and he has felt much better since eating keto and cont losing wgt >15lbs Gastroesop hageal reflux disease 564854663 K21.9 no change in tx Edema of l ower extremity 300709126 R60.0 edema from amlodipine told to elevate legs and take new med and stop amlodipine Dyspnea on exertion 6084 5006 R06.09 worrisome this is cardiac and we need to hopefully prove this is deconditio jayesh only Sleep apnea 54257725 G47 .30 [id number] RASHMI BOLES [facility] Internal Medicine [address] [facility] [address], [place] [address] 08/25/2021 08:51:34 08/26/2021 13:42:49 Essential hypertension 93635371 I10 stable Low back pain 328557206 M54.59 stable on medication takes PRN with food per instructio nsavoid use with alcohol and other NSAIDs Multiple b enign melanocytic nevi 533438891 D22.5 refer to [facility] for eval and biopsy Gastroesop hageal reflux disease 340500671 K21.9 stable [id number] RASHMI BOLES [facility] Internal Medicine [address] [facility] [address] [place] [address] 11/18/2021 09:18:00 11/18/2021 14:30:40 Anterior knee pain 151060429 M25.561 will fu with XRhistory of right knee arthoscopy Infection of tick bite 928057339 W57.XXXA will start on abx and fu with lyme panel [id number] Fortino Obregon DO [facility] Internal Medicine [address] [facility] [address] [place] [address] 12/25/2021 14:55:02 12/28/2021 11:48:02 Hypertensive disorder 62090411 I10 ok right here but has been [...] best Osteoarthr itis of right knee joint 2629297448 46939 M17.11 saul inj well toerated [id number] Fortino Obregon DO [facility] Internal Medicine [address] [facility],[place] [facility] [place] [address] 05/11/2022 09:57:07 05/11/2022 10:46:52 Active or passive immunization 762509677 Z23 tdap at pharmacy Adult [facility] th examination 049914471 Z00.01 pt has gained more weight has become more deconditio kevin more sobdaytime somnolence he is not wearing cpap says he does not tolerate has evid of cts bilat L>Rhas noted djd changes in hands and kneesright knee with noted effusion Dyspnea on exertion 6084 5006 R06.09 worrisome this is cardiac and we need to hopefully prove this is deconditio jayesh only [id number] RASHMI BOLES [facility] Internal Medicine [address] [facility],[place] [address] 12/08/2022 11:00:10 12/08/2022 12:03:20 Lumbar radiculopathy 783065259 M54.16 agreed to MRI lumbar and thoracicst art tramadol and prednisone can use diclofenac 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 89855102 M51.34 will fu with patient after MRIs [id number] Fortino Obregon DO [facility] Internal Medicine [address] [facility],[place] [address] 05/13/2023 15:27:13 05/13/2023 16:27:19 Gastroesophageal reflux disease 552755711 K21.9 no change in tx Spinal kali nosis of lumbar region 54280689 M48.062 needs to lose the wgt as well Bilateral carpal tunnel syndrome 5503004878 1579323 G56.03 needs a referral to surgeon when ready but NCT is not since before 2018 Low back pain 916395582 M54.50 Hyperglycemia 57065771 R 73.9 [id number] Fortino Obregon DO [facility] Internal Medicine [address] [facility],[place] [address] 05/17/2023 10:17:49 05/17/2023 11:24:26 Active or passive immunization 360300277 Z23 tdap at pharmacy Adult heal th examination 724554236 Z00.00 pt has gained more weight has become more deconditio kevin more sobdaytime somnolence he is not wearing cpap says he does not tolerate has evid of cts bilat L>Rhas noted djd changes in hands and kneesright knee with noted effusion 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 36151992 M51.34 Dyspnea on exertion 6084 5006 R06.09 worrisome this is cardiac and we need to hopefully prove this is deconditio jayesh only Hyperglycemia 77316015 R 73.9 we will rech a1c in 2 months Hyperkalemia 79921677 E8 7.5 Hypertensive disorder 38 057294 I10 ok right here but has been [...] him on losartan which worked the best [id number] RASHMI BOLES [facility] Internal Medicine [address] [facility] [address],[place] [address] 03/27/2024 14:18:11 03/27/2024 16:40:14 Degeneration of lumbar intervertebral disc 45547733 M51.36 would like a second Screening for malignant neoplasm of colon 190265467 Z12.11 agreed to colonoscop y Diarrhea 53466019 A07.8 will set up with GI for fu colonoscop y [id number] Fortino Obregon DO [facility] Internal Medicine [address] [facility] [address],[place] [address] 05/22/2024 10:49:58 05/22/2024 11:39:49 Hypertensive disorder 75307162 I10 ok right here but has been [...] best 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 57954431 M51.34 Lumbar radiculopathy 128 594317 M54.16 awaiting [place] reply Adult heal th examination 277022809 Z00.00 still struggling with the backwill need [...] [employer] [id number] Remy D Edgar [id number] [address] [place] 05/13/2023 1 [place]UE [employer] [id number] Remy D [place] [id number] [address] [place] 05/17/2023 1 [employer] [id number] Remy D [place] [id number] [address] [place] 03/27/2024 1 [place] [id number] Remy D Edgar [id number] [address] [place] 05/22/2024 1 [place] [employer] [id number] Remy D [place] [id number] 196 Remy Edgar Notes Date Note Type [...] the discomfort in the meantime RASHMI BOLES [address] [place] [address], [place], [address], [facility] 12/08/2022 11:52:10 3 text/html here for rechk and is doing the same Fortino Obregon [address] [place], [address], [facility] 05/13/2023 16:12:19 3 text/html Annual [...] hearing Vision:no vision problems Fortino ObregonDO [address] [place], [address], [facility] 05/17/2023 10:55:07 4 text/html f/o lumbar spine pain the patient is doing okaystill having a lot of back pain, lumbar spine painh/x of fusion L5-S1 about 17 years agorecently had another surgery with Dr. Lara out of [facility] for the other levels of his lumbar [...] with patient GI referral RASHMI BOLES [address] [place], [address], [facility] 03/27/2024 15:03:31 4 text/html here for cpebiggest issue is his back still waiting on [place] to respondseen by dr glez office Fortino Obregon, DO [address] [facility], [place], [address], [facility] 05/22/2024 11:24:35
== END 2024-11-09 13:38 | disposition home or self-care (01) ==
LOC: HO.MRI 13:37
PROVIDERS: PCP Internal Medicine; Visit Provider Physician Assistant
DX: M54.9 Dorsalgia, unspecified (principal)
CPT/HCPCS: 72148

== ENCOUNTER → 2024-11-09 13:37 | Outpatient (BNV) | payer OTHER, SELFPAY | PROVIDERS: PCP Internal Medicine; Visit Provider Radiology Diagnostic Radiology | DX: M54.9 Dorsalgia, unspecified (principal); M48.061 Spinal stenosis, lumbar region without neurogenic claudication | CPT/HCPCS: 72148 ==

== ENCOUNTER 2024-11-16 14:06 | Outpatient (AMB) | payer OTHER, SELFPAY ==
--- NOTE | 2024-11-16 14:07 | HO.SPINEOV ---
Intake Visit Reasons: Discuss Surgery Intake Note: Mr. Hernández is here today to Discuss Surgery. Healthcare Analyst Required: No Assessment & Plan Assessment & Plan (1) Lumbar spinal stenosis due to adjacent segment disease after fusion procedure: Code(s): M48.061 - Spinal stenosis, lumbar region without neurogenic claudication; M51.369 - Other intervertebral disc degeneration, lumbar region without mention of lumbar back pain or lower extremity pain; Z98.1 - Arthrodesis status Category: Medical Plan Dear colleague, On 11/16/2024, I saw for preoperative visit Remy Hernández. He suffering from intractable low back pain and more recently he has recurrent pain down his left leg. The back pain and left leg pain are becoming unbearable. He can not stand for any length of time due to the leg pain. The centralized back pain is a constant pain. He tried all conservative treatments for which I refer to the prior notes of tawanna Messer. The latest MRI again shows status post L5-S1 anterior lumbar interbody fusion with adjacent degenerative disc disease L4-5 and associated foraminal and central stenosis. He comes in to discuss an oblique lumbar interbody fusion L4-5. I went over the procedure on the hand of a model and discuss potential complications and expected outcome. He wants to proceed. He is scheduled for December 25. He will get a preoperative clearance from his primary care physician. I spent 20 minutes in his consult to discuss the surgical plan after reviewing of imaging. Jackson Ramon MD, PhD Spine Fellowship Trained Neurosurgeon Director, [facility] Coding Level of Care Code Est Pt Level 3 (94639) Diagnoses Lumbar spinal stenosis due to adjacent segment disease after fusion procedure M48.061; M51.369; Z98.1
== END 2024-11-16 14:56 | disposition home or self-care (01) ==
LOC: HO.HNS 14:07
PROVIDERS: PCP Physician Assistant; Visit Provider Neurological Surgery
DX: M48.061 Spinal stenosis, lumbar region without neurogenic claudication (principal); M51.369 Other intervertebral disc degeneration, lumbar region without mention of lumbar back pain or lower extremity pain; Z98.1 Arthrodesis status
CPT/HCPCS: 99213

== ENCOUNTER → 2024-11-16 14:06 | Outpatient (BNVA) | payer OTHER, SELFPAY | PROVIDERS: PCP Physician Assistant; Visit Provider Neurological Surgery ==

== ENCOUNTER → 2024-12-18 12:41 | Outpatient (BNV) | payer OTHER, SELFPAY | PROVIDERS: PCP Internal Medicine; Visit Provider Internal Medicine Cardiovascular Disease | DX: I49.3 Ventricular premature depolarization (principal) | CPT/HCPCS: 93010 ==

== ENCOUNTER 2025-01-01 07:59 | Inpatient (IN) | payer OTHER, SELFPAY ==
--- OUTSIDE RECORDS SUMMARY | 2024-11-22 12:52 | XMS_ITS | Data Portability ---
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) MDM MODERATE MUST MEET 2 OUT OF [...] Organization Details Last Modified Time Details Appointments Pre-Op 2024 02:15P M DR OBREGON Not available Not available Not available ANNUAL EXAM 2024 11:30A M DR OBREGON Not available Not available Not available Lab CMP, serum or plasma 2023 [facility] (Centralized Electronic Ordering - All Locations), Patient Can Go To The Location Of Their Choice, [id number] 05/30/2024 04:21:32 CBC w/ auto diff 2023 [facility] (Centralized Electronic Ordering - All Locations), Patient Can Go To The Location Of Their Choice, 05/30/2024 04:21:32 PSA, serum or plasma 2023 024 [facility] (Centralized Electronic Ordering - All Locations), Patient Can Go To The Location Of Their Choice, 05/30/2024 04:21:32 lipid panel, blood 2023 024 [facility] (Centralized Electronic Ordering - All Locations), Patient Can Go To The Location Of Their Choice, 05/30/2024 04:21:32 vitami n D, 25-hyd stacey, total, serum 2023 024 [facility] (Centralized Electronic Ordering - All Locations), Patient Can Go To The Location Of Their Choice, 05/30/2024 04:21:31 HbA1c (hemog lobin A1c), blood 2022 023 [facility], [address] [place] [address], [place], [address], 05/17/2023 10:55:25 HbA1c (hemog lobin A1c), blood 2022 023 [facility], [place], [address], 05/16/2023 12:47:20 Referral gastro entero logist referr al 2023 024 [facility] , [address] [place] [address], [address], 03/30/2024 09:50:18 orthop edic surgeo n referr al 2023 024 [email or web address] 10 Macario Glez MD, [address] [place] [address], [address], 05/02/2024 08:25:18 orthop edic surgeo n referr al 2022 023 [email or web address] 10 [facility] (Damian Ybarra), [address] [facility], [place], [address], 12/10/2022 08:53:51 Procedures None record ed. Surgeries None record ed. Imaging MRI, lumbar spine, w/o contra st - Call Refere nce #: Rajat Nickerson 2022Re soluti on: Comple tripp on 2022 at 11:10 am. Call ref #Rajat Nickerson 2022. 2022 023 [email or web address] 10 Not available 12/13/2022 08:33:18 MRI, thorac ic spine, w/o contra st - Call Refere nce #: Baylee [email or web address] 23Reso lution : Comple tripp on 2022 at 10:16 am. Call ref #Levy [id number] 123. 2022 023 [email or web address] 10 Not available 12/13/2022 08:35:30 Medication Orders predni sone 10 mg tablet 2023 024 [facility], [address] [place], [address], 05/22/2024 11:18:37 pregab brendan 75 mg capsul e 2022 023 [facility], [address] [place], [address], 05/13/2023 16:11:10 diclof enac sodium 75 mg tablet ,delay ed releas e 2022 023 [facility], [address] [place], [address], 05/13/2023 16:11:10 tramad ol 50 mg tablet 2022 023 [email or web address] [facility], [address] [place], [address], 03/27/2024 14:28:56 predni sone 10 mg tablet 2022 023 [email or web address] [facility]1234, [address] [place], [address], 03/27/2024 14:28:21 Patient TargetsNo targets recorded. Patient [...] Francoise Paz, Internal Medicine, Encounter Date: 03/27/2024 [employer] Referral for Diarrhea Referring Physician: Francoise Paz, Internal Medicine, Encounter Date: 03/27/2024 Results Created Date Observation Date Name Description Value Unit Range Abnormal Flag Note LastModifiedBy Organization Detail LastModifiedTime 01/02/2012/29/2022 MRI, thora cic spine , w/o contr ast No observ ation record ed. [address] (Scheduling Dept) [address] [place], [address], 05/13/2023 15:56:15 01/02/20 23 12/29/2022 MRI, thora cic spine , w/o contr ast No observ ation record ed. [address] - Outpatient Radiology [address] [place] [address] , [place] [place], [address], 05/13/2023 15:56:15 07/29/20 24 05/21/2024 XR, lumbo sacra l spine , 2 or 3 view No observ ation record ed. [email or web address] [place], [address], 07/29/2024 20:07:04 11/13/1911/09/2024 MRI, lumba r spine , w/o contr ast No observ ation record ed. [facility] (Medical Records) [address] [place] [address], [address], 11/12/2024 07:25:41 Result Notes None recorded. Problems Name Problem SNOMED Code Status Onset Date Resolution Date Notes Provider Name and Address Organization Details Recorded Time Biltatea l carpal tunnel syndrome 03981052105 772682 Active 2018 Fortino Obregon DO [address] [place] [address], [address], [facility] 9 16:07:08 Osteoart hritis of right knee joint 44727844017 9100 Active 2021 Fortino Obregon DO [address] [place] [address], [address], [facility] 2 15:35:03 Pain of right knee joint 69807698997 4100 Active 2021 Fortino Obregon DO [address] [place] [address], [address], [facility] 2 08:42:43 Dyspnea on exertion 90894589 Active 2021 Fortino Obregon DO [address] [place] [address], [address], [facility] 2 10:37:46 Hyperkal emia 35673443 Active 2021 Fortino Obregon DO [address] [place] [address], [address], [facility] 2 13:39:57 Liver enzymes level above referenc e range 517697940 Active 2021 Fortino Obregon DO [address] [place] [address], [address], [facility] 2 09:01:34 Osteoart hritis 021475137 Active 2021 RASHMI BOLES [address] [place] [address], [address], [facility] 2 13:45:53 Paresthe yusuf of lower extremit y 901698094 Active 2022 Fortino Obregon DO [address] [place] [address], [address], [facility] 3 16:21:27 Lumbar radiculo rhina 974158957 Active 2022 RASHMI BOLES [address] [place], [address], [facility] 3 11:34:07 Spinal stenosis of lumbar region 93974387 Active 2022 RASHMI BOLES [address] [place], [address], [facility] 3 10:08:17 Hypergly cemia 37436413 Active 2022 Fortino Obregon DO [address] [place], [address], [facility] 3 16:09:47 Gastroes ophageal reflux disease 089434191 Active 2017 Jonelle maguire [facility] 8 09:26:44 Steatosi s of liver 263761971 Active 2017 [facility] 09:26:53 History of spinal fusion 41977645278 107 Active 2017 Jonelle maguire [facility] 8 09:27:03 Hyperten sive disorder 36479802 Active 2017 Jonelle maguire [facility] 8 09:27:07 Osteopen ia 139215427 Active 2017 Jonelle maguire [facility] 8 09:27:13 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 92559855 Active 2017 Jonelle maguire [facility] 8 09:27:53 History of hernia repair 53428515962 109 Active 2017 incarcera tripp L inguinal Jonelle maguire [facility] 8 09:28:36 Allergic rhinitis 43502375 Active 2017 Jonelle maguire [facility] 8 09:28:42 Gout 57371583 Active 2023 Fortino Obregon DO [address] [place] [address], [address], [facility] 4 13:40:53 Degenera tion of lumbar interver tebral disc 86165925 Active 2023 RASHMI BOLES [address] [place] [address], [address], [facility] 4 14:43:39 Diarrhea 84474908 Active 2023 RASHMI BOLES [address] [place] [address], [address], [facility] 4 14:53:19 Edema of lower extremit y 677043164 Active 2017 Fortino Obregon DO [address] [place] [address], [address], [facility] 8 14:19:49 Problem Notes None recorded. Procedures Surgical History Date Name Laterality Status Provider Name and Address Organization Details Recorded Time 024 Colonoscopy completed Fortino Obregon DO [address] [place] [address], [address], [facility] 06/28/2024 20:54:11 022 Corticosteroid Injection completed Fortino Obregon DO [address] [place] [address], [address], [facility] 12/25/2021 15:37:16 Imaging Results Imaging Date Name Status LastModified by Organiz ation Details LastModified Time 12/29/2022 MRI, thoracic spine, w/o contrast completed [address] (Scheduling Dept) [address] [place], [address], 05/13/2023 15:56:15 12/29/2022 MRI, thoracic spine, w/o contrast completed [address] - Outpatient Radiology [address] [place] [address] [place], [address], 05/13/2023 15:56:15 05/21/2024 XR, lumbosacral spine, 2 or 3 view completed [address] [place], , 07/29/2024 20:07:04 11/09/2024 MRI, lumbar spine, w/o contrast completed [facility] (Medical Records) [address] [place], [address], 11/12/2024 07:25:41 Procedure Notes None recorded. Medical Equipment None [...] propionate 50 mcg/actuati on nasal spray,suspe nsion [place] 1 spray every day by intranasa l [...] Updated DateTime 3 173.99 cm 40 kg/m2 279332. 16 g 61 /min 98 % 98 % 185 mm[Hg] 80 mm[Hg] [facility] 3 11:07:39 Date Recorded Body height Body mass index (BMI) Body weight Heart rate Oxygen saturation Oxygen saturation in Arterial blood by Pulse oximetry Systolic blood pressure Diastolic blood pressure Provider Name and Address Organization Details Last Updated DateTime 3 173.99 cm 39.1 kg/m2 716962. 61 g 94 /min 96 % 96 % 159 mm[Hg] 90 mm[Hg] [facility] 3 15:32:44 Date Recorded Body height Body mass index (BMI) Body weight Heart rate Oxygen saturation Oxygen saturation in Arterial blood by Pulse oximetry Systolic blood pressure Diastolic blood pressure Provider Name and Address Organization Details Last Updated DateTime 3 173.99 cm 39 kg/m2 647011. 02 g 80 /min 95 % 95 % 130 mm[Hg] 80 mm[Hg] [facility] 3 10:22:55 Date Recorded Body height Body mass index (BMI) Body weight Heart rate Oxygen saturation Oxygen saturation in Arterial blood by Pulse oximetry Systolic blood pressure Diastolic blood pressure Provider Name and Address Organization Details Last Updated DateTime 4 173.99 cm 39 kg/m2 030103. 02 g 72 /min 98 % 98 % 150 mm[Hg] 80 mm[Hg] [facility] 4 14:30:40 Date Recorded Body height Body mass index (BMI) Body weight Heart rate Oxygen saturation Oxygen saturation in Arterial blood by Pulse oximetry Systolic blood pressure Diastolic blood pressure Provider Name and Address Organization Details Last Updated DateTime 4 173.99 cm 40 kg/m2 195591. 16 g 63 /min 95 % 95 % 138 mm[Hg] 70 mm[Hg] [facility] 4 10:55:45 Social History Question Answer Notes LastModified by Organizat ion Details LastModified Time Tobacco Smoking Status Never Smoker Not Available [facility] 06/24/2020 03:36:23 What Was The Date Of Your Most Recent Tobacco Screening? 05/22/2024 [email or web address] Information not available 05/22/2024 Do You Or Have You Ever Used Any Other Forms Of Tobacco Or Nicotine? No [email or web address] Information not available 05/13/2023 Sex: Unknown Functional [...] Details Recorded Time Tdap 01/17/2018 completed Jonelle maguire [facility] 07/24/2018 15:53:44 Past Encounters Encounter ID Performer Location Encounter Start Date Encounter Closed Date Diagnosis/Indication Diagnosis SNOMED-CT Code Diagnosis ICD10 Code Diagnosis Note [id number] Fortino Obregon DO [facility] [address] [place] [address] 11/23/2017 11:50:27 11/23/2017 12:30:17 Edema of lower extremity 876049087 R60.0 edema from amlodipine told to elevate legs and take new med and stop amlodipine [id number] Fortino Obregon DO [facility] [address] [place] [address] 01/17/2018 14:03:07 01/17/2018 15:31:23 Hypertensive disorder 55114248 I10 doing great at this point Edema of l ower extremity 481772816 R60.0 edema from amlodipine told to elevate legs and take new med and stop amlodipine 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 98653730 M51.34 Active or passive immunization 459045258 Z23 tdap at pharmacy Laceration of finger 274 983601 S61.219A steri strip closure and sterile dressings [id number] [facility] [address] [facility],[place] [address] 07/24/2018 15:19:25 07/24/2018 16:03:58 Hypertensive disorder 11722211 I10 ok right here but has been consistent ly elevated at home is starting to get headaches also has been noting episodes of lightheade dness and spacey feeling he does have dm in the family will give him a glucometer to check his sugars and he hansel check bp and will have him follow closely Tick bite 07341479 W57.X XXA prob lyme disease [id number] [facility] [address] [facility], [place] [address] 07/31/2018 15:32:57 07/31/2018 16:45:36 Hypertensive disorder 61649354 I10 ok right here but has been [...] with more lab when approp Allergic rhinitis 554807 04 J30.[id number] [facility] [address] [facility], [place] [address] 03/23/2019 15:40:37 03/23/2019 16:15:59 Hypertensive disorder 90454494 I10 ok right here but has been [...] it was 98 Bilateral carpal tunnel syndrome 9210457767 6914055 G56.03 needs a referral to surgeon Incontinence of feces 72 285469 R15.[id number] [facility] [address] [facility] [address],[place] [address] 06/15/2019 13:30:22 06/15/2019 15:15:47 Liver enzymes level above reference range 112022568 R74.8 will repeat test no risk factors and is assoc with the fatty liver Steatosis of liver 1007 K76.0 will cont to lose wgt and we will follow with more lab when approp Hypertensive disorder 38 437207 I10 ok right here but has been consistent ly elevated at home still bp is decent here in office using non automated cuff he hansel check bp and will have him follow closely stopped the hctz as he has been getting too light headed and he has felt much better since eating keto and cont losing wgt >15lbs [id number] Bianca [facility] [address] [facility],[place] mary kate [facility] [place] [address] 06/22/2019 15:46:24 06/22/2019 16:37:52 Hypertensive disorder 18694375 I10 no longer on bp meds as of 2-3 months ago due to possible drug side effect states needs to lose weight bp was higher at other offices supposed to be monitoring BP at home = will give guidelines to call for BP persistent ly elevated above 140/90 Gastroesop hageal reflux disease 690061970 K21.9 asx 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 17834873 M51.34 on meloxicam Tick bite without infection 354927261 T14.8XXD monitor for signs of infection/ bullseye appears to be healing well at this time [id number] [facility] [address] [facility] [address],[place] [address] 07/16/2019 08:57:33 07/16/2019 10:06:09 Essential hypertension 54575700 I10 Low back pain 118839982 M54.5 meloxicam not really helpful hanesl try diclofenac bid prn considerin g PT - will call Gastroesop hageal reflux disease 496019693 K21.[id number] [facility] [address] [facility] [address] [address] 11/16/2019 09:49:23 11/16/2019 10:20:00 Benign paroxysmal positional vertigo 103208053 H81.10 Fever 282997430 R50.9 now resolved working dx is a virus with URI causing a vertigo rxn no sob sl cough afeb now [id number] Fortino Obregon DO [facility] [address] [facility] [address] [address] 11/25/2020 14:48:58 11/25/2020 15:51:09 Hypertensive disorder 93741929 I10 ok right here but has been consistent ly elevated at home still bp is decent here in office using non automated cuff he hansel check bp and will have him follow closely stopped the hctz as he has been getting too light headed and he has felt much better since eating keto and cont losing wgt >15lbs Gastroesop hageal reflux disease 349468667 K21.9 no change in tx Edema of l ower extremity 415954940 R60.0 edema from amlodipine told to elevate legs and take new med and stop amlodipine Dyspnea on exertion 6084 5006 R06.09 worrisome this is cardiac and we need to hopefully prove this is deconditio jayesh only Sleep apnea 45549118 G47 .30 [id number] RASHMI BOLES [facility] [address] [facility], [place] [facility] [place] [address] 08/25/2021 08:51:34 08/26/2021 13:42:49 Essential hypertension 58522734 I10 stable Low back pain 179705363 M54.59 stable on medication takes PRN with food per instructio nsavoid use with alcohol and other NSAIDs Multiple b enign melanocytic nevi 784330102 D22.5 refer to [facility] for eval and biopsy Gastroesop hageal reflux disease 471567616 K21.9 stable [id number] RASHMI BOLES [facility] [address] [facility] [address], [place] [address] 11/18/2021 09:18:00 11/18/2021 14:30:40 Anterior knee pain 395184954 M25.561 will fu with XRhistory of right knee arthoscopy Infection of tick bite 247042948 W57.XXXA will start on abx and fu with lyme panel [id number] Fortino Obregon DO [facility] Medicine [address] [facility] [address],[place] [address] 12/25/2021 14:55:02 12/28/2021 11:48:02 Hypertensive disorder 45098973 I10 ok right here but has been [...] best Osteoarthr itis of right knee joint 0347688105 69317 M17.11 saul inj well toerated [id number] Fortino Obregon DO [facility] [address] [facility] [address],[place] [address] 05/11/2022 09:57:07 05/11/2022 10:46:52 Active or passive immunization 299820430 Z23 tdap at pharmacy Adult heal th examination 940401914 Z00.01 pt has gained more weight has become more deconditio kevin more sobdaytime somnolence he is not wearing cpap says he does not tolerate has evid of cts bilat L>Rhas noted djd changes in hands and kneesright knee with noted effusion Dyspnea on exertion 6084 5006 R06.09 worrisome this is cardiac and we need to hopefully prove this is deconditio jayesh only [id number] RASHMI BOLES [facility] [address] [facility] [address],[place] [address] 12/08/2022 11:00:10 12/08/2022 12:03:20 Lumbar radiculopathy 205970925 M54.16 agreed to MRI lumbar and thoracicst art tramadol and prednisone can use diclofenac 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 75874165 M51.34 will fu with patient after MRIs [id number] [facility] [address] [facility] [address],[place] [address] 05/13/2023 15:27:13 05/13/2023 16:27:19 Gastroesophageal reflux disease 189552965 K21.9 no change in tx Spinal kali nosis of lumbar region 50104431 M48.062 needs to lose the wgt as well Bilateral carpal tunnel syndrome 0207444653 1244081 G56.03 needs a referral to surgeon when ready but NCT is not since before 2018 Low back pain 239905271 M54.50 Hyperglycemia 79066265 R 73.[id number] [facility] Internal [facility] [address] [facility],[place] [address] 05/17/2023 10:17:49 05/17/2023 11:24:26 Active or passive immunization 509967059 Z23 tdap at pharmacy Adult heal th examination 441407870 Z00.00 pt has gained more weight has become more deconditio kevin more sobdaytime somnolence he is not wearing cpap says he does not tolerate has evid of cts bilat L>Rhas noted djd changes in hands and kneesright knee with noted effusion 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 56180672 M51.34 Dyspnea on exertion 6084 5006 R06.09 worrisome this is cardiac and we need to hopefully prove this is deconditio jayesh only Hyperglycemia 76354112 R 73.9 we will rech a1c in 2 months Hyperkalemia 53757580 E8 7.5 Hypertensive disorder 38 415100 I10 ok right here but has been [...] him on losartan which worked the best [id number] RASHMI BOLES [facility] [address] [facility] [address],[place] [address] 03/27/2024 14:18:11 03/27/2024 16:40:14 Degeneration of lumbar intervertebral disc 34996340 M51.36 would like a second Screening for malignant neoplasm of colon 145691309 Z12.11 agreed to colonoscop y Diarrhea 64197480 A07.8 will set up with GI for fu colonoscop y [id number] Fortino Obregon, DO [facility] [address] [facility] [address],Alia [place] [address] 05/22/2024 10:49:58 05/22/2024 11:39:49 Hypertensive disorder 11529783 I10 ok right here but has been [...] best 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 71411593 M51.34 Lumbar radiculopathy 128 386355 M54.16 awaiting [place] reply Adult heal th examination 809860401 Z00.00 still struggling with the backwill need [...] [employer] [id number] Remy [place] [id number] 196 Remy [place] 05/13/2023 1 [place]UE [employer] [id number] Remy [place] [id number] 196 Rem[address] [place] 05/17/2023 1 [place] [employer] [id number] Remy [place] [id number] 196 Remy [place] 03/27/2024 1 [place] [employer] [id number] Remy [place] [id number] 196 Remy [place] 05/22/2024 1 [place] [employer] [id number] Remy [place] [id number] 196 Remy [place] Notes Date Note Type [...] the discomfort in the meantime RASHMI BOLES [address] [place], [address], [facility] 12/08/2022 11:52:10 3 text/html here for rechk and is doing the same Fortino Obregon DO [address] [place], [address], [facility] 05/13/2023 16:12:19 3 text/html Annual [...] loss of hearing Vision:no vision problems Fortino Obregon DO [address] [place], [address], [facility] 05/17/2023 10:55:07 4 text/html f/o lumbar spine pain the patient is doing okaystill having a lot of back pain, lumbar spine painh/x of fusion L5-S1 about 17 years agorecently had another surgery with Dr. Lara out of [facility] for the other levels of his [...] with patient GI referral RASHMI BOLES [address] [place], [address], [facility] 03/27/2024 15:03:31 4 text/html here for cpebiggest issue is his back still waiting on [facility] to respondseen by dr glez office Fortino Obregon DO [address] [place], [address], [facility] 05/22/2024 11:24:35
--- NOTE | 2024-12-18 | ECG_ITS ---
Test Reason : PREOP Blood Pressure : */* mmHG Vent. Rate : 69 BPM Atrial Rate : 69 BPM P-R Int : 172 ms QRS Dur : 76 ms QT Int : 422 ms P-R-T Axes : 41 -2 34 degrees QTcB Int : 452 ms Sinus rhythm with occasional Premature ventricular complexes Otherwise normal ECG No previous ECGs available Referred By: Blanquita Purdy Electronically Signed By: Ulysses Santos
[2024-12-18 12:13] VITALS: BMI 38.2
[2024-12-18 12:18] VITALS: BP 159/75; PULSE 60; RESP 20; O2SAT 97
[2024-12-18 14:06] LABS: Hematocrit 50.2 % (42.0-52.0); Hemoglobin 16.5 g/dl (14.0-18.0); Mean Corpuscular HGB Conc 32.9 g/dl (31.0-36.0); Mean Corpuscular Hemoglobin 28.2 pg (27.0-33.0); Mean Corpuscular Volume 85.7 fL (80.0-98.0); Mean Platelet Volume 11.3 fL (9.4-12.4); Platelet Count 206 X10*3/uL (160-400); Red Blood Count 5.86 X10*6/uL (4.60-5.80); Red Cell Distribution Width 13.7 % (11.0-16.0); White Blood Count 8.8 X10*3/uL (4.8-10.8)
[2024-12-18 14:45] LABS: Anion Gap 15 (12-20); Blood Urea Nitrogen 22 mg/dL (9-16); Calcium 9.4 mg/dL (8.4-10.2); Carbon Dioxide 25 mmol/L (22-29); Chloride 106 mmol/L (96-108); Creatinine Clr Calc Pharmacy 98.2; Estimated Glomerular Filt Rate > 60; Glucose Random 80 mg/dL (60-115); Potassium 4.1 mmol/L (3.3-5.1); Sodium 142 mmol/L (135-145)
[2025-01-01] VITALS (18 sets, daily range): BP systolic 132–181; BP diastolic 63–100; PULSE 72–88; RESP 16–22; TEMP 36.3–36.8; O2SAT 93–100; BMI 39.0
--- NOTE | ~2025-01-01 | FL_ITS ---
EXAMINATION: XR FLUOROSCOPY WITH IMAGES CLINICAL INFORMATION: L4-5 OLIF COMPARISON: None available. TECHNIQUE: Fluoroscopy provided to: Dr. Ramon Fluoroscopy time: 1 minute, 9 seconds DAP: 24.78 Gycm2 Images: 3 FINDINGS: 3 fluoroscopic spot images lumbar spine taken during L4-5 OLIF. Please refer to the full operative report for details. FL/FL guidance in OR IMPRESSION: Fluoroscopic guidance. Electronically signed by: Milan Mejia MD 01/01/2025 01:18 PM EDT
--- NOTE | 2025-01-01 08:21 | PHA.MEDREC ---
Pharmacy Consult ? Medication Reconciliation Pharmacy has completed the medication reconciliation. Spoke to patient and confirmed med rec done by nursing in pre-op
[2025-01-01] MEDS: Gabapentin 300 MG CAPSULE PO (08:40)
[2025-01-01] MEDS: methocarbamoL 750 MG TABLET PO (08:40)
[2025-01-01] MEDS: Lactated Ringers 1,000 ML 100 ML IVCONT (08:49)
--- NOTE | 2025-01-01 10:09 | MHC.SHP ---
Pre-Procedural Eval Section A - 24 Hr Update-Section A only Date of Service: 01/01/25 The patient is an INPATIENT: No Changes since office visit: No Cold of Flu in the past 2 weeks, No New Medical Problems, No Changes in Medication and No Patient answered all questions The patient has been examined within 24 hours of the surgical procedure. The History & Physical has been completed within 30 days and I have reviewed it.: No Section B - Complete if H&P > 30 days Chief Complaint: s/p L4-5 OLIF Allergies: Allergies Allergy/AdvReac Type Severity Reaction Status Date / Time No Known Allergies Allergy Verified 12/17/24 09:23 Review of Systems Sugical H&P ROS: Negative: Constitution, Cardiovascular, Respiratory, Neurological, Psychiatric, Hem-Onc, Allergic/Immunologic, Gastrointestinal, Genitourinary, Musculoskeletal, Integumentary, Endocrine and Eyes/Ears/Nose/Throat Exam Surgical H&P Exam: Normal: HEENT, Normal: Heart, Normal: Lungs, Normal: Extremities, Normal: Abdomen, Normal: Skin and Normal: Neurological (awake, alert,oriented x 3 ) Plan L4-5 oblique lumbar interbody fusion Time Spent With Patient Time: Total time managing care of this patient today __6__ minutes.
--- NOTE | 2025-01-01 10:24 | P.CONAN_ITS ---
Documented by User: Blanquita Purdy NP 12/31/24 10:38 HPI - Anesthesia Eval Consult details Narrative: 64yo M for L4-5 Oblique Lumbar Interbody Fusion, 01/01/25 No recent illness No CP/SOB with yardwork GARY: Unable to tolerate CPAP Multiple previous back surgeries (PONV after first one only) PMFSH Active Problems Active Problems: All Active Problems Lumbar spinal stenosis due to adjacent segment disease after fusion procedure (Acute) Back pain (Acute) Past Medical History Medical History (Updated 12/18/24 @ 12:31 by Blanquita Purdy NP) Sleep apnea HTN (hypertension) GERD (gastroesophageal reflux disease) Steatosis of liver Gout Osteoarthritis Degenerative disc disease, lumbar Family History Family history of problems with anesthesia: No Surgical History Surgical History (Updated 12/18/24 @ 12:09 by Unique Lagunas RN) History of back surgery History of esophagogastroduodenoscopy (EGD) H/O colonoscopy Hx of hand surgery History of carpal tunnel surgery of left wrist Hx of meniscectomy of right knee Hx of hernia repair History of lumbar spinal fusion History of Problems with Anesthesia: No Social History Social History Are you a primary acute care nursing assistant to a significant other at home: No Do you presently have visiting nurse or other home services: No Patient Tobacco Use Status: Never used Tobacco Use of substances other than those prescribed or required for medical reasons: No Have you been hit, kicked, punched, or otherwise hurt by someone within the past year? If so, by whom?: No Spiritual Healthcare Practices: no Restorationism Healthcare Practices: no Cultural Healthcare Practices: no Are you DNR?: No Advance Directives: No (states is primary contact) Advance Directives Information Provided: Yes (as above noted) Advance Directives on File: No Poor oral hygiene: No Meds Allergies Allergy/AdvReac Type Severity Reaction Status Date / Time No Known Allergies Allergy Verified 12/17/24 09:23 Home Medications ?Medication ?Instructions ?Recorded ?Confirmed ?Last Taken ?Type diclofenac sodium 75 mg 75 mg PO BID PRN Pain 12/17/24 01/01/25 12/25/24 History tablet,delayed release losartan 50 mg tablet 50 mg PO DAILY 12/17/24 01/01/25 12/31/24 History pregabalin 75 mg capsule 75 mg PO BID PRN Back Pain 12/17/24 01/01/2525 History Exam Height,Weight and Vital Signs: Height 5 ft 8.5 in Weight 115.666 kg Last Vital Signs Pulse 60 12/18/24 12:18 Resp 20 12/18/24 12:18 BP 159/75 H 12/18/24 12:18 Pulse Ox 97 12/18/24 12:18 O2 Del Method Room Air 12/18/24 12:18 Pertinent Lab Results Pertinent Lab Results: Lab Results 12/18/24 12/18/24 Range/Units 13:02 13:14 WBC 8.8 (4.8-10.8) X10*3/uL RBC 5.86 H (4.60-5.80) X10*6/uL Hgb 16.5 (14.0-18.0) g/dl Hct 50.2 (42.0-52.0) % MCV 85.7 (80.0-98.0) fL MCH 28.2 (27.0-33.0) pg MCHC 32.9 (31.0-36.0) g/dl RDW 13.7 (11.0-16.0) % Plt Count 206 (160-400) X10*3/uL MPV 11.3 (9.4-12.4) fL Absolute Nucleated RBC 0.000 (0.0-0.012) X10*3/uL Nucleated RBC % (auto) 0.0 (0.0-0.2) /100WBC Sodium 142 (135-145) mmol/L Potassium 4.1 (3.3-5.1) mmol/L Chloride 106 (96-108) mmol/L Carbon Dioxide 25 (22-29) mmol/L Anion Gap 15 (12-20) BUN 22 H (9-16) mg/dL Creatinine 0.95 (0.5-1.4) mg/dL Estim Creat Clear Calc 98.2 Estimated GFR > 60 Random Glucose 80 (60-115) mg/dL Calcium 9.4 (8.4-10.2) mg/dL Blood Type A Positive Antibody Screen NEGATIVE Narrative Narrative: EKG 11/2024 Vent. Rate : 69 BPM Atrial Rate : 69 BPM P-R Int : 172 ms QRS Dur : 76 ms QT Int : 422 ms P-R-T Axes : 41 -2 34 degrees QTcB Int : 452 ms Sinus rhythm with occasional Premature ventricular complexes Otherwise normal ECG No previous ECGs available Airway Mallampati Class: III TM Dist: >3cm Neck ROM: Full Heart: RRR Lungs: CTAB Assessment and Plan Assessment Anesthesia Assessment: Anesthesia Plan Discussed and PAT Visit Final Anesthetic Review Family History of Problems with Anesthesia: No History of Problems with Anesthesia: No Documented by User: Puja Mckeon, DO 01/01/25 10:26 [facility] Past Medical History Medical History (Updated 12/18/24 @ 12:31 by Blanquita Purdy NP) Sleep apnea HTN (hypertension) GERD (gastroesophageal reflux disease) Steatosis of liver Gout Osteoarthritis Degenerative disc disease, lumbar Family History Family history of problems with anesthesia: No Surgical History Surgical History (Updated 12/18/24 @ 12:09 by Unique Lagunas RN) History of back surgery History of esophagogastroduodenoscopy (EGD) H/O colonoscopy Hx of hand surgery History of carpal tunnel surgery of left wrist Hx of meniscectomy of right knee Hx of hernia repair History of lumbar spinal fusion History of Problems with Anesthesia: No Social History Social History Are you a primary acute care nursing assistant to a significant other at home: No Do you presently have visiting nurse or other home services: No Patient Tobacco Use Status: Never used Tobacco Use of substances other than those prescribed or required for medical reasons: No Have you been hit, kicked, punched, or otherwise hurt by someone within the past year? If so, by whom?: No Spiritual Healthcare Practices: no Restorationism Healthcare Practices: no Cultural Healthcare Practices: no Are you DNR?: No Advance Directives: No (states is primary contact) Advance Directives Information Provided: Yes (as above noted) Advance Directives on File: No Poor oral hygiene: No Meds Allergies Allergy/AdvReac Type Severity Reaction Status Date / Time No Known Allergies Allergy Verified 12/17/24 09:23 Home Medications ?Medication ?Instructions ?Recorded ?Confirmed ?Last Taken ?Type diclofenac sodium 75 mg 75 mg PO BID PRN Pain 12/17/24 01/01/25 12/25/24 History tablet,delayed release losartan 50 mg tablet 50 mg PO DAILY 12/17/24 01/01/25 12/31/24 History pregabalin 75 mg capsule 75 mg PO BID PRN Back Pain 12/17/24 01/01/25 12/25/24 History Exam Exam Date and Time: 01/01/25 1024 Height,Weight and Vital Signs: Height 5 ft 8.5 in Weight 115.666 kg Last Vital Signs Pulse 60 12/18/24 12:18 Resp 20 12/18/24 12:18 BP 159/75 H 12/18/24 12:18 Pulse Ox 97 12/18/24 12:18 O2 Del Method Room Air 12/18/24 12:18 Vital Signs Pulse Rate 60 12/18/24 12:18 Respiratory Rate 20 12/18/24 12:18 Blood Pressure 159/75 H 12/18/24 12:18 Pulse Oximetry 97 12/18/24 12:18 Oxygen Delivery Method Room Air 12/18/24 12:18 Temperature 98.3 F 01/01/25 08:21 Pulse Rate 72 01/01/25 08:21 Respiratory Rate 16 01/01/25 08:21 Blood Pressure 170/94 H 01/01/25 08:21 Pulse Oximetry 94 01/01/25 08:21 Oxygen Delivery Method Room Air 01/01/25 08:21 Airway Mallampati Class: III TM Dist: <=3cm Neck ROM: Full Loose/Missing/Broken Teeth: No (patient denies any loose or broken teeth) Heart: S1S2 Assessment and Plan Assessment Anesthesia Assessment: Anesthesia Plan Discussed and Chart Reviewed Final Anesthetic Review Family History of Problems with Anesthesia: No History of Problems with Anesthesia: No NPO: Yes ASA Class: II Final Preanesthetic Review: No Changes in Pt Med Stat, Meds/Allgs Chart Reviewed, Consent Obtained/Reviewed and Anes Risks/Benef Reviewed Patient Risk: Low Procedure Risk: Intermediate Anesthetic Plan Anesthetic Plan: GA and Agree w/ Assess. and Plan Disposition: Standard PACU
[2025-01-01] MEDS: ceFAZolin Sodium/Dextrose,Iso 2 GM/50 ML PIGGYBACK IV ×3 (10:51→22:14)
--- NOTE | 2025-01-01 12:27 | P.OP_ITS ---
Operative Note Operative Note Date of Service: 01/01/25 Narrative: Preop Diagnosis: 1.) Adjacent degenerative disc disease L4-5 2.) Status post L5-S1 lumbar fusion Procedure: 1) L4-5 discectomy, arthrodesis and implantation cage through an anterolateral, retroperitoneal approach 2) L4-5 posterior instrumented fusion 3) allograft 4) Injection of 10 cc of Exparel at the transverse process for a muscular erector spinae block and additional Exparel in paravertebral tissue for postop management Consent Informed Consent was obtained for this operation. I have explained the nature, purpose and benefits of the operation. I have discussed the risks and benefit of the operation including possible complications or adverse events with patient/family. Alternative(s) were discussed with the patient with their relative benefits and risks as well as the consequences of not accepting the o peration were included in obtaining consent. Surgeon: CAROLE KNOX MD, PHD Procedure Assisted By: tawanna Messer Description of Procedure This patient is suffering from back in the neurogenic claudication symptoms due to adjacent degenerative disc disease L4-5 with spinal stenosis and foraminal stenosis. The patient was offered an oblique lumbar interbody fusion L4-5. The procedure and complications were explained. The patient was consented. The patient was brought to the operating room and endotracheally intubated. The patient was turned in a lateral position with the left side up. Prep and drape was done followed by timeout. A small incision was made in the left lower abdominal quadrant. The muscle fascia was opened after which the 3 muscle layer was split to enter the retroperitoneal space. Dilators were docked in the anterior one third of the L4-5 disc space followed by a retractor. The retractor was opened. The L4-5 disc space was exposed. An annulotomy was done after which an elevator Au was used to release the disc material from its endplates and to perforate the contralateral side. A partial discectomy was done. An 8, 10 and 12 mm height trial implant was inserted. The discectomy was completed. The endplates were prepared. An 12 x 50 mm with 0 degree lordosis 4 web cage filled with allograft was inserted into the disc space under fluoroscopic guidance. This resulted in caodaism of the disc height. The retractor was removed. Hemostasis was done. The incision was closed in 2 layers. Steri-Strips used to approximate incision. An OpSite with Tegaderm was used to cover the incision. This marked first part of the procedure. The patient was turned prone on the Skyler spine table. 2C arms were installed for fluoroscopy. Prep and drape was done followed by a second timeout. Injection of 10 cc of Exparel at the bilateral L5 transverse processi for a muscular erector spinae block. Two paramedian incisions were made lateral from the L4 and L5 pedicles. The muscle fascia was opened after which the muscle layer was split bluntly to expose the posterolateral gutter. The following steps were taken. A pediguard tap was used to create a transpedicular trajectory into the vertebral body. A K wire was placed. A specially designed instrument was advanced over the K wire to decorticate the posterolateral gutter in preparation for the posterolateral fusion. A pedicle screw was advanced over the K wire and the K wire was removed. The steps were done for the bilateral L4 and L5 pedicles. A total of 4 screws were placed with a diameter of 6.5 x 45 mm. Pedicle screws were connected with 45 mm jose bilaterally and locked down with locking caps. The extension towers were removed. The posterolateral gutter was filled with allograft to complete the posterolateral L4-L5 fusion Hemostasis was done and the incision was closed in 2 layers. Steri-Strips were used to approximate the incision. An OpSite with tegaderm was used to cover the incision. All sponge and needle counts were correct. Patient was extubated and transferred in stable is to recovery room. Anesthesia: General Estimated Blood Loss (ml): 15 Duration of Surgery: 1 hour and 45 minutes Complications: None Postoperative Plan: Admit to inpatient for clinical observation
[2025-01-01] MEDS: HYDROmorphone HCl 0.5 MG/0.5 ML SYRINGE IVPUSH ×3 (13:20→15:00)
[2025-01-01] MEDS: ondansetron HCL 4 MG/2 ML VIAL IVPUSH (15:43)
[2025-01-01] MEDS: 0.9 % Sodium Chloride 1,000 ML 75 ML IVCONT (16:19)
[2025-01-01] MEDS: Acetaminophen 1,000 MG/100 ML PIGGYBACK 400 MG IV (18:09)
[2025-01-01] MEDS: Ketorolac Tromethamine 15 MG/ML VIAL IVPUSH (18:09)
[2025-01-01] MEDS: Docusate Sodium 100 MG CAPSULE PO (21:16)
[2025-01-02] MEDS: Ketorolac Tromethamine 15 MG/ML VIAL IVPUSH ×2 (00:45→06:04)
[2025-01-02] MEDS: Acetaminophen 1,000 MG/100 ML PIGGYBACK 400 MG IV ×2 (00:46→06:06)
[2025-01-02 03:04] VITALS: BP 107/53; PULSE 83; RESP 18; TEMP 36.5; O2SAT 96
[2025-01-02] MEDS: ceFAZolin Sodium/Dextrose,Iso 2 GM/50 ML PIGGYBACK IV (05:20)
[2025-01-02] MEDS: 0.9 % Sodium Chloride 1,000 ML 75 ML IVCONT (06:06)
--- NOTE | 2025-01-02 06:24 | PC.NURSE ---
Late entry: This RN assumed care last night at 1900, Pt reports some discomfort, but otherwise not much pain, more pain with movement. VSS. Dressings CDI, small staining noted to L flank. Family talked to over phone, updated & reassured. Pt was able to void by 2300 last night, able to reposition appropriately in bed, able to ambulate to the bathroom at 0500 with walker, pt reports feels good to stand up. Daughter Rebeca: [phone],
[2025-01-02 06:54] VITALS: BP 134/61; PULSE 88; RESP 16; TEMP 36.6; O2SAT 96
[2025-01-02] MEDS: Docusate Sodium 100 MG CAPSULE PO (07:07)
[2025-01-02] MEDS: Losartan Potassium 50 MG TABLET PO (07:07)
[2025-01-02] MEDS: oxyCODONE HCl Immed Release 5 MG TABLET 10 MG PO ×2 (07:08→10:54)
--- NOTE | 2025-01-02 07:47 | P.DS_ITS ---
DS: Providers Provider Date of Service: 01/02/25 Date of admission: 01/01/25 07:59 Date of discharge: 01/02/25 Primary care physician: Fortino Whitt MD DS: Summary Time Attestation Discharge Coordination Time (in mins): 12 Quality: Safe Use of Opioids Does Pt have an Active Cancer Diagnosis on the Problem List?: No Quality: Stroke Does the patient have a stroke diagnosis?: No Physical Exam Vital Signs: Vital Signs: Last Vital Signs Temp 98 F 01/02/25 06:54 Pulse 88 01/02/25 06:54 Resp 16 01/02/25 06:54 BP 134/61 01/02/25 06:54 Pulse Ox 96 01/02/25 06:54 O2 Del Method Room Air 01/02/25 06:54 O2 Flow Rate 2 01/01/25 15:58 BMI result Body Mass Index 39.0 Discharge Plan Discharge Anticipated Discharge Date/Time: 01/02/25 07:51 Patient Disposition: Home, Self-Care Discharge Diagnosis: s/p L4-5 OLIF Referrals: Fortino Whitt MD [Primary Care Provider] - 1 Week Discharge Medications: New oxycodone 5 mg tablet See Rx Instructions .ROUTE .COMPLEX PRN (Reason: pain) Qty: 30 0RF Rx Instructions: Take 1-2 tablets by mouth every 4 hours. Partial Fill upon patient request. Continued losartan 50 mg tablet 50 mg PO DAILY diclofenac sodium 75 mg tablet,delayed release (DR/EC) 75 mg PO BID PRN (Reason: Pain) pregabalin 75 mg capsule 75 mg PO BID PRN (Reason: Back Pain) Discharge Orders: Discharge Order (Routine); Ordered 01/02/25 Ordered By: Adi Waldron Diet: Advance to usual diet Activity on Discharge: As tolerated Stand Alone Forms: Patient Portal Discharge page Print Language: Uzbek Activity Restrictions/Additional Instructions: After your spinal surgery we ask you to observe the following restrictions/guidelines: Activity: It is normal to feel some discomfort as you increase your activity, but that will improve with time. We ask you avoid heavy lifting or acitivities that cause pain. As a general rule, 8lbs is a safe limit for lifting right after surgery. Walk as much as you feel comfortable but not to exhaustion. You will feel extra tired the first few days after surgery. Stay well hydrated. It is OK to walk up and down stairs You may return to driving when you are off narcotics (such as vicodin, oxycodone, dilaudid, etc), and you are back to normal functional capacity. If y ou have any concerns please check with office before driving. Return to work is specific to each patient and each surgery, so please speak with your doctor/PA at first follow up. Please bring paperwork such as FMLA at that time if you need it filled out. Medications: We recommend you take 1,000mg Tylenol every 8 hours for the first few weeks after surgery, if you do not have any liver issues and can tolerate this medication. Do not exceed 4,000mg daily. We will give you a short supply of narcotics after surgery (usually one weeks worth). If you need more please call the office but do not use more than prescribed. You will need to give our office 48 hours notice if you need narcotics refilled and we do not fill narcotics on weekends or evenings. If you are on a narcotic, it is a good idea to take a stool softener such as colace or senna to avoid constipation If you take blood thinner such as aspirin, Plavix, Coumadin, Effient, Eliquis etc for conditions such as Afib, DVT, Pulmonary embolus, coronary disease, stents etc please speak with your surgeon about specific details as to when you can resume these medications. You can resume NSAIDs on post op day 1 (eg: Motrin, Naproxen, etc). Follow up: Please call the office, , after surgery to arrange a 3 week follow up for wound check. Wound Care: You may remove your dressing on the first day after surgery. ?You may ?leave open to air. Please do not remove the steri strips underneath. they will fall off on their own in one week. IT IS NORMAL FOR THE WOUND TO OOZE OR BE BLOODY FOR A FEW DAYS AFTER SURGERY. ?IF THIS HAPPENS JUST PLACE NEW DRESSING OVER IT TO AVOID STAINING CLOTHES. You may shower on post op day # 1 We ask that you do not let the water soak the wound. If it does get wet, just towel dry lightly. Please do not scrub your incision or place any type of chemical/ointment on the wound. No tub baths, pools or jacuzzis for one month. If you have any leaking or redness from your wound, or fevers, please call the office. Care Plan Goals: Return to normal activity as tolerated Health Concerns: None Plan of Treatment: Follow-up in clinic in 2-3 weeks. Assessment: POD: 1 Procedure: L4-5 OLIF Bob is a pleasant 64-year-old male who underwent L4-[address] Ramon yesterday. He was seen this morning lying in bed on [address]. He reports he has been up OOB walking around is otherwise doing well. He has been to the bathroom and is voiding well. He feels his symptoms are much better than pre-operatively. He still reports mild pain in his low back, with good relief with pain medication. Afebrile, vital signs stable. Full strength 5/5 LE's. Back dressings have some staining without signs of hematoma. No active sanguineous drainage. Area is dry. Plan: Christ 64-year-old male who underwent L4-[address] Ramon yesterday. Patient meets criteria to be medically discharged home. He was seen at bedside with Dr. Ramon. I will send in a prescription for oxycodone to his pharmacy on record per his request. Adi Ramon MD,PhD [facility]
--- NOTE | 2025-01-02 07:52 | HO.NEURO.PN ---
Neurosurgery Operative Note Date of Service: 01/02/25 Narrative: POD: 1 Procedure: L4-5 OLIF Bob is a pleasant 64-year-old male who underwent L4-[address] Ramon yesterday. He was seen this morning lying in bed on [address]. He reports he has been up OOB walking around is otherwise doing well. He has been to the bathroom and is voiding well. He feels his symptoms are much better than pre-operatively. He still reports mild pain in his low back, with good relief with pain medication. Afebrile, vital signs stable. Full strength 5/5 LE's. Back dressings have some staining without signs of hematoma. No active sanguineous drainage. Area is dry. Plan: Christ 64-year-old male who underwent L4-[address] Ramon yesterday. Patient meets criteria to be medically discharged home. He was seen at bedside with Dr. Ramon. I will send in a prescription for oxycodone to his pharmacy on record per his request. Adi Ramon MD,PhD [facility]
--- NOTE | 2025-01-02 09:09 | MHC.CM.PN ---
EMR REVIEWED, PT S/P L4-5 DISCECTOMY/FUSION, CM MET W/PT WHO REPORTS HE IS DISCHARGING TODAY. PT IS FULLY INDEP, DENIES USE OF DME/SERVICES AND GOAL IS HOME. PT VERIFIES PCP ON FILE IS CORRECT, PT EDUCATED ON AND DECLINES TO COMPLETE A HCP THIS ADMISSION. PT DISCHARGING HOME SELF-CARE, PT'S FOR TRANSPORT
--- NOTE | 2025-01-02 09:17 | HO.POSTANES ---
Post Anesthesia Evaluation Post Anesthesia Evaluation Date of Service: 01/02/25 Vital Signs: Vital Signs Temp Pulse Resp BP Pulse Ox O2 Del Method 01/02/25 06:54 98 F 88 16 134/61 96 Room Air 01/02/25 03:04 97.7 F 83 18 107/53 L 96 Room Air Anesthesia: General Endotracheal-GETA Mental Status: Awake Pain Control: Satisfactory Nausea/Vomiting: None Hydration: Adequate Anesthesia-Related Issues: No Anes. Related Issues
== END 2025-01-02 12:01 | disposition home or self-care (01) | DRG 304 ==
LOC: HO.SSSA 08:02 → HO.S3 15:04
PROVIDERS: Neurological Surgery; Nurse Practitioner; Admitting Provider Physician Assistant; PCP Internal Medicine; Visit Provider Physician Assistant
PROC: 0SG00A0 Fusion of Lumbar Vertebral Joint with Interbody Fusion Device, Anterior Approach, Anterior Column, Open Approach (ICD-10-PCS; principal; 2025-01-01 10:30)
DX: M48.062 Spinal stenosis, lumbar region with neurogenic claudication (principal); G47.33 Obstructive sleep apnea (adult) (pediatric); M51.360 Other intervertebral disc degeneration, lumbar region with discogenic back pain only; Z98.1 Arthrodesis status; Z79.899 Other long term (current) drug therapy
CPT/HCPCS: 36415; 80048; 85027; 86850; 86900; 86901; 93005; 97161; C1713; J0131; J0665; J0666; J0690; J1100; J1171; J1885; J2003; J2250; J2371; J2405; J2704; J3010; L8699

== ENCOUNTER → 2025-01-01 07:59 | Outpatient (BNV) | payer OTHER, SELFPAY | PROVIDERS: Admitting Provider Physician Assistant; PCP Internal Medicine; Visit Provider Neurological Surgery | DX: M51.360 Other intervertebral disc degeneration, lumbar region with discogenic back pain only (principal); M48.061 Spinal stenosis, lumbar region without neurogenic claudication | CPT/HCPCS: 20930; 22558; 22612; 22840; 22853 ==

== ENCOUNTER 2025-01-07 13:20 | Outpatient (AMB) | payer OTHER, SELFPAY ==
--- OUTSIDE RECORDS SUMMARY | 2025-01-07 13:24 | XMS_ITS | Data Portability ---
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) MDM MODERATE MUST MEET 2 OUT OF [...] Go To The Location Of Their Choice, [id number] 05/30/2024 04:21:32 CBC w/ auto diff 2023 MOY [facility] (Centralized Electronic Ordering - All Locations), Patient Can Go To The Location Of Their Choice, [id number] 05/30/2024 04:21:32 PSA, serum or plasma 10/01/ 2024 10/01/2 024 MOY [facility] (Centralized Electronic Ordering - All Locations), Patient Can Go To The Location Of Their Choice, [id number] 05/30/2024 04:21:32 lipid panel, blood 2023 024 MOY [facility] (Centralized Electronic Ordering - All Locations), Patient Can Go To The Location Of Their Choice, [address] 05/30/2024 04:21:32 vitami n D, 25-hyd stacey, total, serum 2023 024 MO[facility] (Centralized Electronic Ordering - All Locations), Patient Can Go To The Location Of Their Choice, [id number] 05/30/2024 04:21:31 HbA1c (hemog lobin A1c), blood 2022 023 [facility], [address] [place] [address], [place], [address], 05/17/2023 10:55:25 HbA1c (hemog lobin A1c), blood 2022 023 [facility], [place], [address], 05/16/2023 12:47:20 Referral gastro entero logist referr al 2023 024 [facility] , [address] [place] [address], [address], 03/30/2024 09:50:18 orthop edic surgeo n referr al 2023 024 [email or web address] 10 Macario Glez MD, [address] [place] [address], [address], 05/02/2024 08:25:18 orthop edic surgeo n referr al 2022 023 [email or web address] 10 [facility] (Damian Ybarra), [address] [place], [address], 12/10/2022 08:53:51 Procedures None record ed. Surgeries None record ed. Imaging MRI, lumbar spine, w/o contra st - Call Refere nce #: Rajat Nickerson 2022Keeley soluti on: Piyush tripp on 2022 at 11:10 am. Call ref #Rajat Nickerson 2022. 2022 023 [email or web address] 10 Not available 12/13/2022 08:33:18 MRI, thorac ic spine, w/o contra st - Call Refere nce #: Baylee [id number] 23Reso lution : Piyush tripp on 2022 at 10:16 am. Call ref #Levy [email or web address] 123. 2022 023 [email or web address] 10 Not available 12/13/2022 08:35:30 Medication Orders predni sone 10 mg tablet 2023 024 [facility]/Pharmacy #1234, [address] [place], [address], 05/22/2024 11:18:37 pregab brendan 75 mg capsul e 2022 023 [facility]/Pharmacy #1234, [address] [facility], [place], [address], 05/13/2023 16:11:10 diclof enac sodium 75 mg tablet ,delay ed releas e 2022 023 [facility]/Pharmacy #1234, [address] [place], [address], 05/13/2023 16:11:10 tramad ol 50 mg tablet 2022 023 [email or web address] [facility]/Pharmacy #1234, [address] [facility], [place], [address], 03/27/2024 14:28:56 predni sone 10 mg tablet 2022 023 [email or web address] [facility]/Pharmacy #1234, [address] [place], [address], 03/27/2024 14:28:21 Patient TargetsNo targets recorded. Patient [...] Francoise Paz, Internal Medicine, Encounter Date: 03/27/2024 Product Inspection Coordinator Referral for Diarrhea Referring Physician: Francoise Paz, Internal Medicine, Encounter Date: 03/27/2024 Results Created Date Observation Date Name Description Value Unit Range Abnormal Flag Note LastModifiedBy Organization Detail LastModifiedTime 01/02/2012/29/2022 MRI, thora cic spine , w/o contr ast No observ ation record ed. [email or web address] [facility] (Scheduling Dept) [address] [place], [address], 05/13/2023 15:56:15 01/02/20 23 12/29/2022 MRI, thora cic spine , w/o contr ast No observ ation record ed. [email or web address] [place] [address] - Outpatient Radiology [address] [place] [address] , [place], [address], 05/13/2023 15:56:15 07/29/20 24 05/21/2024 XR, lumbo sacra l spine , 2 or 3 view No observ ation record ed. [email or web address] [place], , 07/29/2024 20:07:04 11/13/1911/09/2024 MRI, lumba r spine , w/o contr ast No observ ation [email or web address] [address] [place] [address], [address], 11/12/2024 07:25:41 01/02/20 25 01/01/2025 fluor oscop y (PROC ) No observ ation record ed. [email or web address] [place] [address] (Medical Records) [address] [place], [address], 01/01/2025 14:23:12 Result Notes None recorded. Problems Name Problem SNOMED Code Status Onset Date Resolution Date Notes Provider Name and Address Organization Details Recorded Time Nicolasa morales carpal tunnel syndrome 93130675165 324823 Active 2018 Fortino Obregon DO [address] [place] [address], [address], [facility] 9 16:07:08 Osteoart hritis of right knee joint 67995481018 9100 Active 2021 Fortino Obregon DO [address] [place] [address], [address], [facility] 2 15:35:03 Pain of right knee joint 69555196358 4100 Active 2021 Fortino Obregon DO [address] [place] [address], [address], [facility] 2 08:42:43 Dyspnea on exertion 41489398 Active 2021 Fortino Obregon DO [address] [place] [address], [address], [facility] 2 10:37:46 Hyperkal emia 63057361 Active 2021 Fortino Obregon DO [address] [place] [address], [address], [facility] 2 13:39:57 Liver enzymes level above referenc e range 258641196 Active 2021 Fortino Obregon DO [address] [place] [address], [address], [facility] 2 09:01:34 Osteoart hritis 819932413 Active 2021 RASHMI BOLES [address] [place] [address], [address], [facility] 2 13:45:53 Paresthe yusuf of lower extremit y 583341169 Active 2022 Fortino Obregon, DO [address] [place], [address], [facility] 3 16:21:27 Lumbar radiculo rhina 474222869 Active 2022 RASHMI BOLES [address] [place], [address], [facility] 3 11:34:07 Spinal stenosis of lumbar region 69760147 Active 2022 RASHMI BOLES [address] [place], [address], [facility] 3 10:08:17 Hypergly cemia 35786189 Active 2022 Fortino Obregon, DO [address] [place], [address], [facility] 3 16:09:47 Gastroes ophageal reflux disease 697711187 Active 2017 Jonelle maguire [facility] 8 09:26:44 Steatoti c liver disease 322471463 Active 2017 Jonelle maguire [facility] 8 09:26:53 History of spinal fusion 62251981539 107 Active 2017 Jonelle maguire [facility] 8 09:27:03 Hyperten sive disorder 44241727 Active 2017 Jonelle maguire [facility] 8 09:27:07 Osteopen ia 816920630 Active 2017 Jonelle maguire [facility] 8 09:27:13 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 01981178 Active 2017 Jonelle maguire [facility] 8 09:27:53 History of hernia repair 67346796169 109 Active 2017 incarcera tripp L inguinal Jonelle maguire [facility] 8 09:28:36 Allergic rhinitis 48555121 [facility] 09:28:42 Gout 07456605 Active 2023 Fortino Obregon DO [address] [place] [address], [address], [facility] 4 13:40:53 Degenera tion of lumbar interver tebral disc 31283389 Active 2023 RASHMI BOLES [address] [place] [address], [address], [facility] 4 14:43:39 Diarrhea 39146832 Active 2023 RASHMI BOLES [address] [place] [address], [address], [facility] 4 14:53:19 Edema of lower extremit y 647715555 Active 2017 Fortino Obregon DO [address] [place] [address], [address], [facility] 8 14:19:49 Problem Notes None recorded. Procedures Surgical History Date Name Laterality Status Provider Name and Address Organization Details Recorded Time 024 Colonoscopy completed Fortino Obregon DO [address] [place] [address], [address], [facility] 06/28/2024 20:54:11 022 Corticosteroid Injection completed Fortino Obregon DO [address] [place] [address], [address], [facility] 12/25/2021 15:37:16 Imaging Results Imaging Date Name Status LastModified by Organiz ation Details LastModified Time 12/29/2022 MRI, thoracic spine, w/o contrast completed [email or web address] [facility] (Scheduling Dept) [address] [place] [address], [address], 05/13/2023 15:56:15 12/29/2022 MRI, thoracic spine, w/o contrast completed [email or web address] [facility] - Outpatient Radiology [facility] [place], [address], 05/13/2023 15:56:15 05/21/2024 XR, lumbosacral spine, 2 or [address] view completed [address] [place], [address], 07/29/2024 20:07:04 11/09/2024 MRI, lumbar spine, w/o contrast completed [facility] (Medical Records) [address] [place], [address], 11/12/2024 07:25:41 01/01/2025 fluoroscopy (PROC) completed [address] (Medical Records) [address] [place], [address], 01/01/2025 14:23:12 Procedure Notes None recorded. Medical Equipment None [...] propionate 50 mcg/actuati on nasal spray,suspe nsion [place] 1 spray every day by intranasa l [...] Updated DateTime 3 173.99 cm 40 kg/m2 657990. 16 g 61 /min 98 % 98 % 185 mm[Hg] 80 mm[Hg] Marlyn Franklin [facility] 3 11:07:39 Date Recorded Body height Body mass index (BMI) Body weight Heart rate Oxygen saturation Oxygen saturation in Arterial blood by Pulse oximetry Systolic blood pressure Diastolic blood pressure Provider Name and Address Organization Details Last Updated DateTime 3 173.99 cm 39.1 kg/m2 421214. 61 g 94 /min 96 % 96 % 159 mm[Hg] 90 mm[Hg] Marlyn Rigoberto [facility] 3 15:32:44 Date Recorded Body height Body mass index (BMI) Body weight Heart rate Oxygen saturation Oxygen saturation in Arterial blood by Pulse oximetry Systolic blood pressure Diastolic blood pressure Provider Name and Address Organization Details Last Updated DateTime 3 173.99 cm 39 kg/m2 466040. 02 g 80 /min 95 % 95 % 130 mm[Hg] 80 mm[Hg] Marlyn Franklin [facility] 3 10:22:55 Date Recorded Body height Body mass index (BMI) Body weight Heart rate Oxygen saturation Oxygen saturation in Arterial blood by Pulse oximetry Systolic blood pressure Diastolic blood pressure Provider Name and Address Organization Details Last Updated DateTime 4 173.99 cm 39 kg/m2 075584. 02 g 72 /min 98 % 98 % 150 mm[Hg] 80 mm[Hg] Marlyn Franklin [facility] 4 14:30:40 Date Recorded Body height Body mass index (BMI) Body weight Heart rate Oxygen saturation Oxygen saturation in Arterial blood by Pulse oximetry Systolic blood pressure Diastolic blood pressure Provider Name and Address Organization Details Last Updated DateTime 4 173.99 cm 40 kg/m2 424785. 16 g 63 /min 95 % 95 % 138 mm[Hg] 70 mm[Hg] Marlyn Mancini [facility] 4 10:55:45 Social History Question Answer Notes LastModified by Organizat ion Details LastModified Time Tobacco Smoking Status Never Smoker Not Available [employer] 06/24/2020 03:36:23 What Was The Date Of Your Most Recent Tobacco Screening? 05/22/2024 [email or web address] Information not available 05/22/2024 Sex: Unknown Functional Status Question Answer Note LastModified by Organization D etails LastModified Time Do you or have you ever used any other forms of tobacco or nicotine? No [email or web address] Information not available 05/13/2023 Mental Status None recorded. Family History Nothing Reported. Medical History Condition Response Coronary Artery Disease N Gout N Other N Kidney Stones N Blood Diseases N Blood Transfusion N Breast Cancer N COPD N Depression N Lung Disease N Defects or Inherited [...] Organization Details Recorded Time Tdap 01/17/2018 completed DARNELL [facility] 07/24/2018 15:53:44 Past Encounters Encounter ID Performer Location Encounter Start Date Encounter Closed Date Diagnosis/Indication Diagnosis SNOMED-CT Code Diagnosis ICD10 Code Diagnosis Note [id number] DO [facility] [address] [facility] [address] 11/23/2017 11:50:27 11/23/2017 12:30:17 Edema of lower extremity 244702987 R60.0 edema from amlodipine told to elevate legs and take new med and stop amlodipine [id number] Fortino Obregon [facility] [address] [facility] [address],[place] [address] 01/17/2018 14:03:07 01/17/2018 15:31:23 Hypertensive disorder 11177653 I10 doing great at this point Edema of l ower extremity 065504158 R60.0 edema from amlodipine told to elevate legs and take new med and stop amlodipine 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 76044722 M51.34 Active or passive immunization 799622947 Z23 tdap at pharmacy Laceration of finger 274 385698 S61.219A steri strip closure and sterile dressings [id number] Fortino Obregon [facility] [address] [facility], [place] [address] 07/24/2018 15:19:25 07/24/2018 16:03:58 Hypertensive disorder 46624150 I10 ok right here but has been consistent ly elevated at home is starting to get headaches also has been noting episodes of lightheade dness and spacey feeling he does have dm in the family will give him a glucometer to check his sugars and he hansel check bp and will have him follow closely Tick bite 26345141 W57.X XXA prob lyme disease [id number] Fortino Obregon [facility] [address] [facility] [address] 07/31/2018 15:32:57 07/31/2018 16:45:36 Hypertensive disorder 74792426 I10 ok right here but has been consistent ly elevated at home still bp is decent here in office using non automated cuff he hansel check bp and will have him follow closely he had cjhecked his glucose when light headed and it was 98 Steatotic liver disease 881973168 K76.0 will cont to lose wgt and we will follow with more lab when approp Allergic rhinitis 590448 04 J30.9 quiet [id number] Fortino Obregon [facility] [address] [facility] [address] 03/23/2019 15:40:37 03/23/2019 16:15:59 Hypertensive disorder 82086716 I10 ok right here but has been [...] it was 98 Bilateral carpal tunnel syndrome 0098330090 6337074 G56.03 needs a referral to surgeon Incontinence of feces 72 690780 R15.9 [id number] Fortino Obregon [facility] [address] [facility],[place] [address] 06/15/2019 13:30:22 06/15/2019 15:15:47 Liver enzymes level above reference range 433362846 R74.8 will repeat test no risk factors and is assoc with the fatty liver Steatotic liver disease 664391124 K76.0 will cont to lose wgt and we will follow with more lab when approp Hypertensive disorder 38 672168 I10 ok right here but has been consistent ly elevated at home still bp is decent here in office using non automated cuff he hansel check bp and will have him follow closely stopped the hctz as he has been getting too light headed and he has felt much better since eating keto and cont losing wgt >15lbs [id number] Fortino Obregon [facility] [address] [facility],[place] [address] 06/22/2019 15:46:24 06/22/2019 16:37:52 Hypertensive disorder 83096491 I10 no longer on bp meds as of 2-3 months ago due to possible drug side effect states needs to lose weight bp was higher at other offices supposed to be monitoring BP at home = will give guidelines to call for BP persistent ly elevated above 140/90 Gastroesop hageal reflux disease 377807450 K21.9 asx 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 29266606 M51.34 on meloxicam Tick bite without infection 673355555 T14.8XXD monitor for signs of infection/ bullseye appears to be healing well at this time [id number] Fortino Obregon DO [facility] [address] [facility] [address],[place] [address] 07/16/2019 08:57:33 07/16/2019 10:06:09 Essential hypertension 25428857 I10 Low back pain 569210060 M54.5 meloxicam not really helpful hansel try diclofenac bid prn considerin g PT - will call Gastroesop hageal reflux disease 773423787 K21.9 asx [id number] Fortino Obregon DO [facility] [address] [facility] [address],[place] [address] 11/16/2019 09:49:23 11/16/2019 10:20:00 Benign paroxysmal positional vertigo 735442828 H81.10 Fever 357953465 R50.9 now resolved working dx is a virus with URI causing a vertigo rxn no sob sl cough afeb now [id number] Fortino Obregon DO [facility] [address] [facility] [address] [address] 11/25/2020 14:48:58 11/25/2020 15:51:09 Hypertensive disorder 04259830 I10 ok right here but has been consistent ly elevated at home still bp is decent here in office using non automated cuff he hansel check bp and will have him follow closely stopped the hctz as he has been getting too light headed and he has felt much better since eating keto and cont losing wgt >15lbs Gastroesop hageal reflux disease 787518693 K21.9 no change in tx Edema of l ower extremity 833744390 R60.0 edema from amlodipine told to elevate legs and take new med and stop amlodipine Dyspnea on exertion 6084 5006 R06.09 worrisome this is cardiac and we need to hopefully prove this is deconditio jayesh only Sleep apnea 40831306 G47 .30 [id number] Fortino Obregon DO [facility] [address] [facility] [address] [address] 08/25/2021 08:51:34 08/26/2021 13:42:49 Essential hypertension 20494048 I10 stable Low back pain 760314019 M54.59 stable on medication takes PRN with food per instructio nsavoid use with alcohol and other NSAIDs Multiple b enign melanocytic nevi 284323310 D22.5 refer to [facility] derm for eval and biopsy Gastroesop hageal reflux disease 159956231 K21.9 stable [id number] Fortino Obregon [facility] [address] [facility] [address] [address] 11/18/2021 09:18:00 11/18/2021 14:30:40 Anterior knee pain 448362779 M25.561 will fu with XRhistory of right knee arthoscopy Infection of tick bite 110850112 W57.XXXA will start on abx and fu with lyme panel [id number] Fortino Obregon [facility] [address] [facility] [address] 12/25/2021 14:55:02 12/28/2021 11:48:02 Hypertensive disorder 42785062 I10 ok right here but has been [...] best Osteoarthr itis of right knee joint 2598741340 21654 M17.11 saul inj well toerated [id number] Fortino Obregon [facility] [address] [facility] [address] 05/11/2022 09:57:07 05/11/2022 10:46:52 Active or passive immunization 630957627 Z23 tdap at pharmacy Adult heal th examination 535205715 Z00.01 pt has gained more weight has become more deconditio kevin more sobdaytime somnolence he is not wearing cpap says he does not tolerate has evid of cts bilat L>Rhas noted djd changes in hands and kneesright knee with noted effusion Dyspnea on exertion 6084 5006 R06.09 worrisome this is cardiac and we need to hopefully prove this is deconditio jayesh only [id number] Fortino Obregon [facility] [address] [facility] [address] 12/08/2022 11:00:10 12/08/2022 12:03:20 Lumbar radiculopathy 561870028 M54.16 agreed to MRI lumbar and thoracicst art tramadol and prednisone can use diclofenac 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 97608592 M51.34 will fu with patient after MRIs [id number] Fortino Obregon [facility] [address] [facility] [address] [address] 05/13/2023 15:27:13 05/13/2023 16:27:19 Gastroesophageal reflux disease 989772392 K21.9 no change in tx Spinal kali nosis of lumbar region 61618499 M48.062 needs to lose the wgt as well Bilateral carpal tunnel syndrome 5176678819 7813455 G56.03 needs a referral to surgeon when ready but NCT is not since before 2018 Low back pain 664192766 M54.50 Hyperglycemia 40077248 R 73.9 [id number] Fortino Obregon [facility] [address] [facility] [address] 05/17/2023 10:17:49 05/17/2023 11:24:26 Active or passive immunization 158270989 Z23 tdap at pharmacy Adult heal th examination 165395271 Z00.00 pt has gained more weight has become more deconditio kevin more sobdaytime somnolence he is not wearing cpap says he does not tolerate has evid of cts bilat L>Rhas noted djd changes in hands and kneesright knee with noted effusion 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 77385909 M51.34 Dyspnea on exertion 6084 5006 R06.09 worrisome this is cardiac and we need to hopefully prove this is deconditio jayesh only Hyperglycemia 89309991 R 73.9 we will rech a1c in 2 months Hyperkalemia 26051900 E8 7.5 Hypertensive disorder 38 876590 I10 ok right here but has been [...] him on losartan which worked the best [id number] Fortino Obregon, [facility] [address] [facility] [address] 03/27/2024 14:18:11 03/27/2024 16:40:14 Degeneration of lumbar intervertebral disc 02842392 M51.36 would like a second Screening for malignant neoplasm of colon 324255835 Z12.11 agreed to colonoscop y Diarrhea 42177362 A07.8 will set up with GI for fu colonoscop y [id number] Fortino Obregon, [facility] [address] [facility] [address] 05/22/2024 10:49:58 05/22/2024 11:39:49 Hypertensive disorder 12972964 I10 ok right here but has been [...] best 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 57928021 M51.34 Lumbar radiculopathy 128 963760 M54.16 awaiting [place] reply Adult heal th examination 154643480 Z00.00 still struggling with the backwill need to get fbw Health Concerns Section Related Observation LastModified by Organization Detai ls LastModified Time None Recorded Concern Status LastModified by Organization Details LastModified Time None Recorded Advance Directives Directive None Recorded Payers Encounter Date Sequence Insurance Name Policy Number Policy Cedeno Covered Member ID Cedeno Member ID Guarantor Name 12/08/2022 1 [employer] [place] [id number] Remy Hernández [id number] Remy Hernández 05/13/2023 1 [employer]MIN[employer] OF [facility] [place] [id number] Remy [id number] Remy [place] 05/17/2023 1 [employer] [place] [id number] Remy Hutchins [place] [id number] [place] 03/27/2024 1 [employer] [id number] Remy Hutchins [place] [id number] Remy [place] 05/22/2024 1 [employer] [id number] Remy Hutchins [place] [id number] Remy [place] Notes Date Note Type Note Provider Name [...] discomfort in the meantime RASHMI BOLES [address] [place], [address], [facility] 12/08/2022 11:52:10 3 text/html here for rechk and is doing the same Fortino Obregon DO [address] [place], [address], [facility] 05/13/2023 16:12:19 3 text/html Annual [...] Vision:no vision problems Fortino Obregon DO [address] [place], [address], [facility] 05/17/2023 10:55:07 4 text/html f/o lumbar spine pain the patient is doing okaystill having a lot of back pain, lumbar spine painh/x of fusion L5-S1 about 17 years agorecently had another surgery with Dr. Lara out of [facility] for the other levels of [...] with patient GI referral RASHMI BOLES [address] [place], [id number], [facility] 03/27/2024 15:03:31 4 text/html here for cpebiggest issue is his back still waiting on [place] to respondseen by dr glez office Fortino Obregon DO [address] [place], [id number], [facility] 05/22/2024 11:24:35
--- NOTE | 2025-01-07 13:27 | A.SPINEOV_ITS ---
Intake Visit Reasons: wound check Intake Note: Mr. Hernández is here today for a wound check. 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 He was added on as an acute postoperative follow up visit due to wound leaking. He reports the wound has been red, had raised edges, and has been leaking since surgery. He reports that it essentially has been leaking all day. He does report that it is slightly itchy. He denies any at home fever, nausea, vomiting, chills, or body aches. He reports that he has been changing out bandage us multiple times per day as the leaking saturates through them. He describes the fluid as clear / cloudy but not white or pustular. On examination he has well approximated incisions, with a 2-3cm area of erythema and small papules surrounding each incision site. He has clear / cloudy non- serosanguineous and non purulent drainage coming from around the incision sites, but not from the actual incisions themselves. No significant pain to palpation. No drainage could be expressed from the incision sites or surrounding areas to deeper palpation. He also has a red square of erythema in the shape of the bandages with adhesive that he was applying to each incision site. I believe that Remy is most likely suffering from a allergic contact de rmatitis likely from the adhesive used for the Steri-Strips over each incision. He seems to be having a similar reaction to the adhesive in the medical tape he has been using to place bandages over each incision site. I would like to send him in a 5 day burst course of prednisone 20 mg. I will also send him in some topical Benadryl cream to be applied only around the incision site not directly over the incision. Lastly, I will send in a 5 day course of doxycycline to cover for superficial skin infection given the extent of the allergic reaction. I encouraged Remy to reach out to our office over the course of the next few days to update us on progress (getting better vs. worse). We may need to see him again soon if this worsens at all. Otherwise we will follow up routinely. Adi Ramon MD,PhD [facility] Medications: New prednisone 20 mg PO DAILY 5 tabs 0RF inflammation reaction diphenhydramine-zinc acetate 2-0.1 % (Benadryl Extra Strength) Apply only around incision sites - not directly to incision. 1 appl topical TID PRN 28.3 grams 0RF itching doxycycline hyclate 100 mg PO BID 5 days 10 tabs 0RF surgical prophylaxis Coding Level of Care Code Global (46700) Diagnoses S/P lumbar fusion Z98.1
== END 2025-01-07 14:55 | disposition home or self-care (01) ==
LOC: HO.HNS 13:21
PROVIDERS: PCP Internal Medicine; Visit Provider Physician Assistant
DX: Z98.1 Arthrodesis status (principal)
CPT/HCPCS: 99024

== ENCOUNTER → 2025-01-07 13:20 | Outpatient (BNVA) | payer OTHER, SELFPAY | PROVIDERS: PCP Internal Medicine; Visit Provider Physician Assistant ==

== ENCOUNTER 2025-01-22 13:02 | Outpatient (AMB) | payer OTHER, SELFPAY ==
--- NOTE | 2025-01-22 13:06 | HO.SPINEOV ---
Intake Visit Reasons: 1st post op sx 01/01 Intake Note: Mr. Hernández is here today for his 1st post op. 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 Ramon. Upon entering the exam room the patient stood up and lifted his shirt to expose the lateral incision site, exclaiming: I have an infection. He reports no drainage from the area, no fever, no nausea, no vomiting, no chills and no sweats. However, he does say the incision site is sandblast or shotblast equipment tender. He reports that he feels basically the same as before surgery. When asked to elaborate he began telling me that the bottom of his right foot still feels like a sponge. When asked if this is sensational change such as lack of feeling he replied: No it just feels like a sponge even with the surgery. When further asked about his preoperative complaints (worsening back pain now with pain shooting again down into his left buttock, spasms and nerve pain that wake him up at night) he states that his noctural symptoms have actually completely resolved and he can sleep through the night now. He asked several questions regarding the postoperative healing course all of which I answered to the best of my ability. No new neurological deficits. The patient ambulates well and rises from a seated position without difficulty. Some redness noted around lateral incision site, with a notable scab overlying the area. No active drainage. No disclosed pain to palpation along wound edges. Patient stuck his finger into the open area of the scab when describing the tenderness from the incision site. I believe Remy is likely suffering from a flare up of postoperative inflammation which is contributing to his subjective continuation of symptoms. His back pain will likely continue to improve in the coming weeks. He was informed that we do not believe his sponge-foot will get any better despite recent spine surgery. I will send in a short course of antibiotics as prophylaxis for superficial skin infection, given the redness noted and the probing of the incision site. Adi Ramon MD,PhD [facility] Medications: New sulfamethoxazole-trimethoprim 800-160 mg (Bactrim DS) 1 tab PO BID 10 tabs 0RF surgical prophylaxis Coding Level of Care Code Global (29888) Diagnoses S/P lumbar fusion Z98.1
--- OUTSIDE RECORDS SUMMARY | 2025-01-22 14:29 | XMS_ITS | Data Portability ---
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) MDM MODERATE MUST MEET 2 OUT OF [...] Go To The Location Of Their Choice, [id number] 05/30/2024 04:21:32 CBC w/ auto diff 2023 MOY [facility] (Centralized Electronic Ordering - All Locations), Patient Can Go To The Location Of Their Choice, [id number] 05/30/2024 04:21:32 PSA, serum or plasma 10/01/ 2024 10/01/2 024 MOY [facility] (Centralized Electronic Ordering - All Locations), Patient Can Go To The Location Of Their Choice, [id number] 05/30/2024 04:21:32 lipid panel, blood 2023 024 MOY [facility] (Centralized Electronic Ordering - All Locations), Patient Can Go To The Location Of Their Choice, [id number] 05/30/2024 04:21:32 vitami n D, 25-hyd stacey, total, serum 2023 024 MOY [facility] (Centralized Electronic Ordering - All Locations), Patient Can Go To The Location Of Their Choice, [address] 05/30/2024 04:21:31 HbA1c (hemog lobin A1c), blood 2022 023 [facility], [address] [place] [address], [place], [address], 05/17/2023 10:55:25 HbA1c (hemog lobin A1c), blood 2022 023 [facility], [place], [address], 05/16/2023 12:47:20 Referral gastro entero logist referr al 2023 024 [facility] , [address] [place] [address], [address], 03/30/2024 09:50:18 orthop edic surgeo n referr al 2023 024 [email or web address] 10 Macario Glez MD, [address] [place] [address], [address], 05/02/2024 08:25:18 orthop edic surgeo n referr al 2022 023 [email or web address] 10 [facility] (Damian Ybarra), [address] [place], [address], 12/10/2022 08:53:51 Procedures None record ed. Surgeries None record ed. Imaging MRI, lumbar spine, w/o contra st - Call Refere nce #: Rajat Nickerson 2022Keeley soluti on: Piyush tripp on 2022 at 11:10 am. Call ref #Rajat Nickerson 2022. 2022 023 [email or web address] 10 Not available 12/13/2022 08:33:18 MRI, thorac ic spine, w/o contra st - Call Refere nce #: Baylee [email or web address] 23Reso lution : Piyush tripp on 2022 at 10:16 am. Call ref #Levy [id number] 123. 2022 023 [email or web address] 10 Not available 12/13/2022 08:35:30 Medication Orders predni sone 10 mg tablet 2023 024 [facility] #1234, [address] [place], [address], 05/22/2024 11:18:37 pregab brendan 75 mg capsul e 2022 023 [facility], [address] [facility], [place], [address], 05/13/2023 16:11:10 diclof enac sodium 75 mg tablet ,delay ed releas e 2022 023 [facility]1234, [address] [place], [address], 05/13/2023 16:11:10 tramad ol 50 mg tablet 2022 023 [email or web address] [facility] #1234, [address] [facility], [place], [address], 03/27/2024 14:28:56 predni sone 10 mg tablet 2022 023 [email or web address] [facility] #1234, [address] [place], [address], 03/27/2024 14:28:21 Patient TargetsNo targets recorded. Patient [...] Francoise Paz, Internal Medicine, Encounter Date: 03/27/2024 Home Appraiser Referral for Diarrhea Referring Physician: Farncoise Paz, Internal Medicine, Encounter Date: 03/27/2024 Results Created Date Observation Date Name Description Value Unit Range Abnormal Flag Note LastModifiedBy Organization Detail LastModifiedTime 01/02/2012/29/2022 MRI, thora cic spine , w/o contr ast No observ ation record ed. [email or web address] [facility] (Scheduling Dept) [address] [place], [address], 05/13/2023 15:56:15 01/02/20 23 12/29/2022 MRI, thora cic spine , w/o contr ast No observ ation record ed. [email or web address] [place] [address] - Outpatient Radiology [address] [place] [address] , [place], [address], 05/13/2023 15:56:15 07/29/20 24 05/21/2024 XR, lumbo sacra l spine , 2 or 3 view No observ ation record ed. [email or web address] [place], , 07/29/2024 20:07:04 11/13/1911/09/2024 MRI, lumba r spine , w/o contr ast No observ ation record ed. [email or web address] [facility] (Medical Records) [address] [place] [address], [address], 11/12/2024 07:25:41 01/02/20 25 01/01/2025 fluor oscop y (PROC ) No observ ation record ed. [email or web address] [place] [address] (Medical Records) [address] [place], [address], 01/01/2025 14:23:12 Result Notes None recorded. Problems Name Problem SNOMED Code Status Onset Date Resolution Date Notes Provider Name and Address Organization Details Recorded Time Nicloasa morales carpal tunnel syndrome 97680269584 512823 Active 2018 Fortino Obregon DO [address] [place] [address], [address], [facility] 9 16:07:08 Osteoart hritis of right knee joint 55280883356 9100 Active 2021 Fortino Obregon DO [address] [place] [address], [address], [facility] 2 15:35:03 Pain of right knee joint 50145284960 4100 Active 2021 Fortino Obregon DO [address] [place] [address], [address], [facility] 2 08:42:43 Dyspnea on exertion 72316177 Active 2021 Fortino Obregon DO [address] [place] [address], [address], [facility] 2 10:37:46 Hyperkal emia 36865286 Active 2021 Fortino Obregon DO [address] [place] [address], [address], [facility] 2 13:39:57 Liver enzymes level above referenc e range 582462920 Active 2021 Fortino Obregon DO [address] [place] [address], [address], [facility] 2 09:01:34 Osteoart hritis 024324839 Active 2021 RASHMI BOLES [address] [place] [address], [address], [facility] 2 13:45:53 Paresthe yusuf of lower extremit y 228228998 Active 2022 Fortino Obregon, DO [address] [place], [address], [facility] 3 16:21:27 Lumbar radiculo rhina 759099125 Active 2022 RASHMI BOLES [address] [place], [address], [facility] 3 11:34:07 Spinal stenosis of lumbar region 86023476 Active 2022 RASHMI BOLES [address] [place], [address], [facility] 3 10:08:17 Hypergly cemia 89316101 Active 2022 Fortino Obregon, DO [address] [place], [address], [facility] 3 16:09:47 Gastroes ophageal reflux disease 355743952 Active 2017 Jonelle maguire [facility] 8 09:26:44 Steatoti c liver disease 003639198 Active 2017 Jonelle maguire [facility] 8 09:26:53 History of spinal fusion 62939248157 107 Active 2017 Jonelle maguire [facility] 8 09:27:03 Hyperten sive disorder 12171592 Active 2017 Jonelle maguire [facility] 8 09:27:07 Osteopen ia 841875175 Active 2017 Jonelle maguire [facility] 8 09:27:13 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 28267083 Active 2017 Jonelle maguire [facility] 8 09:27:53 History of hernia repair 00022950392 109 Active 2017 incarcera tripp L inguinal Jonelle maguire [facility] 8 09:28:36 Allergic rhinitis 55773943 [facility] 2017 [facility] 09:28:42 Gout 49464962 Active 2023 Fortino Obregon DO [address] [place] [address], [address], [facility] 4 13:40:53 Degenera tion of lumbar interver tebral disc 51501850 Active 2023 RASHMI BOLES [address] [place] [address], [address], [facility] 4 14:43:39 Diarrhea 29868355 Active 2023 RASHMI BOLES [address] [place] [address], [address], [facility] 4 14:53:19 Edema of lower extremit y 301422859 Active 2017 Fortino Obregon DO [address] [place] [address], [address], [facility] 8 14:19:49 Problem Notes None recorded. Procedures Surgical History Date Name Laterality Status Provider Name and Address Organization Details Recorded Time 024 Colonoscopy completed Fortino Obregon DO [address] [place] [address], [address], [facility] 06/28/2024 20:54:11 022 Corticosteroid Injection completed Fortino Obregon DO [address] [place] [address], [address], [facility] 12/25/2021 15:37:16 Imaging Results None recorded. Procedure Notes None recorded. Medical Equipment None [...] propionate 50 mcg/actuati on nasal spray,suspe nsion [place] 1 spray every day by intranasa l [...] 1 CAPSULE BY MOUTH TWICE A DAY needs appt for further refills call office 2024 active Not Available Not Available Not [...] Updated DateTime 3 173.99 cm 40 kg/m2 471083. 16 g 61 /min 98 % 98 % 185 mm[Hg] 80 mm[Hg] Marlyn [facility] 3 11:07:39 Date Recorded Body height Body mass index (BMI) Body weight Heart rate Oxygen saturation Oxygen saturation in Arterial blood by Pulse oximetry Systolic blood pressure Diastolic blood pressure Provider Name and Address Organization Details Last Updated DateTime 4 173.99 cm 39 kg/m2 281497. 02 g 72 /min 98 % 98 % 150 mm[Hg] 80 mm[Hg] Marlyn [facility] 4 14:30:40 Date Recorded Body height Body mass index (BMI) Body weight Heart rate Oxygen saturation Oxygen saturation in Arterial blood by Pulse oximetry Systolic blood pressure Diastolic blood pressure Provider Name and Address Organization Details Last Updated DateTime 3 173.99 cm 39.1 kg/m2 313571. 61 g 94 /min 96 % 96 % 159 mm[Hg] 90 mm[Hg] [facility] 3 15:32:44 Date Recorded Body height Body mass index (BMI) Body weight Heart rate Oxygen saturation Oxygen saturation in Arterial blood by Pulse oximetry Systolic blood pressure Diastolic blood pressure Provider Name and Address Organization Details Last Updated DateTime 3 173.99 cm 39 kg/m2 779609. 02 g 80 /min 95 % 95 % 130 mm[Hg] 80 mm[Hg] [facility] 3 10:22:55 Date Recorded Body height Body mass index (BMI) Body weight Heart rate Oxygen saturation Oxygen saturation in Arterial blood by Pulse oximetry Systolic blood pressure Diastolic blood pressure Provider Name and Address Organization Details Last Updated DateTime 4 173.99 cm 40 kg/m2 587960. 16 g 63 /min 95 % 95 % 138 mm[Hg] 70 mm[Hg] [facility] 4 10:55:45 Social History Question Answer Notes LastModified by Organizat ion Details LastModified Time Tobacco Smoking Status Never Smoker Not Available [facility] 06/24/2020 03:36:23 What Was The Date Of Your Most Recent Tobacco Screening? 05/22/2024 [email or web address] Information not available 05/22/2024 Sex: Unknown Functional Status Question Answer Note LastModified by Organization D etails LastModified Time Do you or have you ever used any other forms of tobacco or nicotine? No [email or web address] Information not available 05/13/2023 Mental Status None [...] Details Recorded Time Tdap 01/17/2018 [facility] 07/24/2018 15:53:44 Past Encounters Encounter ID Performer Location Encounter Start Date Encounter Closed Date Diagnosis/Indication Diagnosis SNOMED-CT Code Diagnosis ICD10 Code Diagnosis Note [id number] Fortino Obregon [facility] [address] [place] [address], [place] [address] 11/23/2017 11:50:27 11/23/2017 12:30:17 Edema of lower extremity 046676353 R60.0 edema from amlodipine told to elevate legs and take new med and stop amlodipine [id number] Fortino Obregon [facility] Internal [facility] [address] [facility], [place] [address] 01/17/2018 14:03:07 01/17/2018 15:31:23 Hypertensive disorder 83839586 I10 doing great at this point Edema of l ower extremity 074025134 R60.0 edema from amlodipine told to elevate legs and take new med and stop amlodipine 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 37078253 M51.34 Active or passive immunization 539920977 Z23 tdap at pharmacy Laceration of finger 274 733573 S61.219A steri strip closure and sterile dressings [id number] Fortino Obregon [facility] [address] [facility], [place] [address] 07/24/2018 15:19:25 07/24/2018 16:03:58 Hypertensive disorder 39050465 I10 ok right here but has been consistent ly elevated at home is starting to get headaches also has been noting episodes of lightheade dness and spacey feeling he does have dm in the family will give him a glucometer to check his sugars and he hansel check bp and will have him follow closely Tick bite 13569013 W57.X XXA prob lyme disease [id number] Fortino Segovia Peri [facility] [address] [facility],[place], [place] 7 07/31/2018 15:32:57 07/31/2018 16:45:36 Hypertensive disorder 02401310 I10 ok right here but has been consistent ly elevated at home still bp is decent here in office using non automated cuff he hansel check bp and will have him follow closely he had cjhecked his glucose when light headed and it was 98 Steatotic liver disease K76.0 will cont to lose wgt and we will follow with more lab when approp Allergic rhinitis 757934 04 J30.9 quiet [id number] Fortino Segovia Peri [facility] [address] [facility],[place], [place] 7 03/23/2019 15:40:37 03/23/2019 16:15:59 Hypertensive disorder 05585503 I10 ok right here but has been [...] it was 98 Bilateral carpal tunnel syndrome 0892775759 9730120 G56.03 needs a referral to surgeon Incontinence of feces 72 752524 R15.9 [id number] Fortino YeungHilary Obregon [facility] [address] [facility],[place], [place] 7 06/15/2019 13:30:22 06/15/2019 15:15:47 Liver enzymes level above reference range 010974939 R74.8 will repeat test no risk factors and is assoc with the fatty liver Steatotic liver disease K76.0 will cont to lose wgt and we will follow with more lab when approp Hypertensive disorder 38 562104 I10 ok right here but has been consistent ly elevated at home still bp is decent here in office using non automated cuff he hansel check bp and will have him follow closely stopped the hctz as he has been getting too light headed and he has felt much better since eating keto and cont losing wgt >15lbs [id number] Fortino Obregon [facility] [address] [facility] [address] [address] 06/22/2019 15:46:24 06/22/2019 16:37:52 Hypertensive disorder 47493557 I10 no longer on bp meds as of 2-3 months ago due to possible drug side effect states needs to lose weight bp was higher at other offices supposed to be monitoring BP at home = will give guidelines to call for BP persistent ly elevated above 140/90 Gastroesop hageal reflux disease 908796878 K21.9 asx 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 31072388 M51.34 on meloxicam Tick bite without infection 545903630 T14.8XXD monitor for signs of infection/ bullseye appears to be healing well at this time [id number] Fortino Obregon [facility] [address] [facility],[place] [address] 07/16/2019 08:57:33 07/16/2019 10:06:09 Essential hypertension 74377122 I10 Low back pain 490108556 M54.5 meloxicam not really helpful hansel try diclofenac bid prn considerin g PT - will call Gastroesop hageal reflux disease 225245838 K21.9 asx [id number] Fortino Obregon [facility] [address] [facility] [address],[place] [address] 11/16/2019 09:49:23 11/16/2019 10:20:00 Benign paroxysmal positional vertigo 494707998 H81.10 Fever 896603752 R50.9 now resolved working dx is a virus with URI causing a vertigo rxn no sob sl cough afeb now [id number] Fortino Obregon [facility] [address] [facility] [address],[place] [address] 11/25/2020 14:48:58 11/25/2020 15:51:09 Hypertensive disorder 17332711 I10 ok right here but has been consistent ly elevated at home still bp is decent here in office using non automated cuff he hansel check bp and will have him follow closely stopped the hctz as he has been getting too light headed and he has felt much better since eating keto and cont losing wgt >15lbs Gastroesop hageal reflux disease 580282176 K21.9 no change in tx Edema of l ower extremity 283865987 R60.0 edema from amlodipine told to elevate legs and take new med and stop amlodipine Dyspnea on exertion 6084 5006 R06.09 worrisome this is cardiac and we need to hopefully prove this is deconditio jayesh only Sleep apnea 13373714 G47 .30 [id number] Fortino Obregon [facility] [address] [facility] [address] [address] 08/25/2021 08:51:34 08/26/2021 13:42:49 Essential hypertension 22455936 I10 stable Low back pain 658850723 M54.59 stable on medication takes PRN with food per instructio nsavoid use with alcohol and other NSAIDs Multiple b enign melanocytic nevi 438410568 D22.5 refer to [facility] for eval and biopsy Gastroesop hageal reflux disease 121113581 K21.9 stable [id number] Fortino Obregon [facility] [address] [facility] [address] [address] 11/18/2021 09:18:00 11/18/2021 14:30:40 Anterior knee pain 160371472 M25.561 will fu with XRhistory of right knee arthoscopy Infection of tick bite 500559625 W57.XXXA will start on abx and fu with lyme panel [id number] Fortino Obregon [facility] [address] [facility] [address],[place] [address] 12/25/2021 14:55:02 12/28/2021 11:48:02 Hypertensive disorder 37896719 I10 ok right here but has been [...] best Osteoarthr itis of right knee joint 4888012923 67003 M17.11 saul inj well toerated [id number] Fortino Obregon [facility] [address] [facility] [address] [address] 05/11/2022 09:57:07 05/11/2022 10:46:52 Active or passive immunization 753397350 Z23 tdap at pharmacy Adult [facility] th examination 425352416 Z00.01 pt has gained more weight has become more deconditio kevin more sobdaytime somnolence he is not wearing cpap says he does not tolerate has evid of cts bilat L>Rhas noted djd changes in hands and kneesright knee with noted effusion Dyspnea on exertion 6084 5006 R06.09 worrisome this is cardiac and we need to hopefully prove this is deconditio jayesh only [id number] Fortino Obregon [facility] [address] [facility], [place] [address] 12/08/2022 11:00:10 12/08/2022 12:03:20 Lumbar radiculopathy 536479262 M54.16 agreed to MRI lumbar and thoracicst art tramadol and prednisone can use diclofenac 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 90514814 M51.34 will fu with patient after MRIs [id number] Fortino Obregon [facility] [address] [facility],[place] [address] 05/13/2023 15:27:13 05/13/2023 16:27:19 Gastroesophageal reflux disease 844143792 K21.9 no change in tx Spinal kali nosis of lumbar region 55409518 M48.062 needs to lose the wgt as well Bilateral carpal tunnel syndrome 3719687860 6216111 G56.03 needs a referral to surgeon when ready but NCT is not since before 2018 Low back pain 424627582 M54.50 Hyperglycemia 87962648 R 73.9 [id number] Fortino Obregon [facility] [address] [facility],[place] [address] 05/17/2023 10:17:49 05/17/2023 11:24:26 Active or passive immunization 487836040 Z23 tdap at pharmacy Adult heal th examination 411108357 Z00.00 pt has gained more weight has become more deconditio kevin more sobdaytime somnolence he is not wearing cpap says he does not tolerate has evid of cts bilat L>Rhas noted djd changes in hands and kneesright knee with noted effusion 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 95248222 M51.34 Dyspnea on exertion 6084 5006 R06.09 worrisome this is cardiac and we need to hopefully prove this is deconditio jayesh only Hyperglycemia 31249018 R 73.9 we will rech a1c in 2 months Hyperkalemia 12148352 E8 7.5 Hypertensive disorder 38 882035 I10 ok right here but has been [...] him on losartan which worked the best [id number] Fortino Obregon [facility] [address] [facility] [place] [address] 03/27/2024 14:18:11 03/27/2024 16:40:14 Degeneration of lumbar intervertebral disc 52511222 M51.36 would like a second Screening for malignant neoplasm of colon 298788652 Z12.11 agreed to colonoscop y Diarrhea 33893837 A07.8 will set up with GI for fu colonoscop y [id number] Fortino Obregon [facility] [address] [facility],[place] [address] 05/22/2024 10:49:58 05/22/2024 11:39:49 Hypertensive disorder 75267082 I10 ok right here but has been [...] best 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 78725109 M51.34 Lumbar radiculopathy 128 628303 M54.16 awaiting [place] reply Adult heal th examination 281688259 Z00.00 still struggling with the backwill need to get fbw Health Concerns Section Related Observation LastModified by Organization Detai ls LastModified Time None Recorded Concern Status LastModified by Organization Details LastModified Time None Recorded Advance Directives Directive None Recorded Payers Encounter Date Sequence Insurance Name Policy Number Policy Cedeno Covered Member ID Cedeno Member ID Guarantor Name 12/08/2022 1 [employer] [facility] (O) [id number] Remy D Mills [id number] Remy Edgar 05/13/2023 1 [employer] [facility] (PPO) [id number] Remy D Mills [id number] Remy Edgar 05/17/2023 1 [employer] [facility] (PPO) [id number] Remy D Mills [id number] Remy Edgar 03/27/2024 1 [employer] [facility] (PPO) [id number] Remy D Edgar [id number] Remy Edgar 05/22/2024 1 [employer] [facility] (PPO) [id number] Remy D Edgar [id number] Remy [place] Notes Date Note Type Note Provider Name [...] the discomfort in the meantime RASHMI BOLES [address] [place] [address], [place], [address], [facility] 12/08/2022 11:52:10 3 text/html here for rechk and is doing the same Fortino Obregon DO [address] [place], [address], [facility] 05/13/2023 16:12:19 3 text/html Annual [...] Vision:no vision problems Fortino Obregon DO [address] [place], [address], [facility] 05/17/2023 10:55:07 4 text/html f/o lumbar spine pain the patient is doing okaystill having a lot of back pain, lumbar spine painh/x of fusion L5-S1 about 17 years agorecently had another surgery with Dr. Lara out of [facility] for the other levels of his [...] with patient GI referral RASHMI BOLES [address] [place], [address], [facility] 03/27/2024 15:03:31 4 text/html here for cpebiggest issue is his back still [place] respondseen by dr glez office Fortino Obregon DO [address] [facility], [place], [address], [facility] 05/22/2024 11:24:35
== END 2025-01-22 13:47 | disposition home or self-care (01) ==
LOC: HO.HNS 13:02
PROVIDERS: PCP Internal Medicine; Visit Provider Physician Assistant
DX: Z98.1 Arthrodesis status (principal)
CPT/HCPCS: 99024

== ENCOUNTER 2025-02-05 13:36 | Outpatient (AMB) | payer OTHER, SELFPAY ==
--- NOTE | 2025-02-05 13:42 | A.SPINEOV_ITS ---
Intake Visit Reasons: incision check Intake Note: Mr. Hernández is here today to have his incision checked. 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 Ramon on 01/01. He has had issues with his lateral incision site healing since his surgery. He reports continued concerns that the area is open and is occasionally draining serosanguineous fluid. He also still reports low back pain. He came in today for an incision check. We previously discussed allowing the incision to heal via seondary intention with Hibiclens used in the shower daily. He reports that he is very frustrated with the incision being open and asked that we close it during this office visit today. On examination he has about 1/2 of the incision that is avascular and open. No active drainage. Very small amount of serosanguineous drainage could be palpated from the incision site. No pain to direct palpation of incison site. No obvious erthema or edema, aside from some markings that look like adhesive from a bandage he was wearing. His posterior incision sites are closed and well healing. After discussion with the patient regarding risks / benefits of allowing the incision to heal on its own by secondary intention versus excising the avascular tissue and reapproximate wound, the patient opted to have the wound reapproximated and closed here in office today. I sterilized the area with alcohol swabs and used 5 cc lidocaine to anesthetize the surrounding skin tissue. I then sterilize the incision site with 3 iodine swabs. I excised the avascular tissue around the edges of the open area of the incision. I then used a single running suture to re-approximate the wound edges. The patient tolerated the procedure well. I would like tray to follow up with us in 10 days to evaluate the incision again and potentially remove the suture. He may need an extra 4-5 days if his incision does not appear to be scabbing over by the time we see him again. I will call in a 7 day course of Doxycycline. Adi Ramon MD,PhD [facility] Medications: New doxycycline hyclate 100 mg PO BID 7 days 14 caps 0RF surgical prophylaxis Coding Level of Care Code Global (03576) Diagnoses S/P lumbar fusion Z98.1
--- OUTSIDE RECORDS SUMMARY | 2025-02-05 15:31 | XMS_ITS | Data Portability ---
Author Organization [facility], Telehealth Patient Home Address [address] [place] [address] Assessment Encounter Date Assessment Date Assessment LastModified by Organization Details LastModified Time 05/13/2023 05/13/2023 [address] [place] [address] (BIG DATA ADMIN) MDM MODERATE MUST MEET 2 OUT OF [...] Go To The Location Of Their Choice, [id number] 05/30/2024 04:21:32 CBC w/ auto diff 2023 024 [facility] (Centralized Electronic Ordering - All Locations), Patient Can Go To The Location Of Their Choice, [id number] 05/30/2024 04:21:32 PSA, serum or plasma 2023 024 [facility] (Centralized Electronic Ordering - All Locations), Patient Can Go To The Location Of Their Choice, [id number] 05/30/2024 04:21:32 lipid panel, blood 2023 024 [facility] (Centralized Electronic Ordering - All Locations), Patient Can Go To The Location Of Their Choice, [id number] 05/30/2024 04:21:32 vitami n D, 25-hyd stacey, total, serum 2023 024 [facility] (Centralized Electronic Ordering - All Locations), Patient Can Go To The Location Of Their Choice, [id number] 05/30/2024 04:21:31 HbA1c (hemog lobin A1c), blood 2022 023 [facility], [address] [place] [address], [place], [address], 05/17/2023 10:55:25 HbA1c (hemog lobin A1c), blood 2022 023 [facility], [place], [address], 05/16/2023 12:47:20 Referral gastro entero logist referr al 2023 024 [facility] , [address] [place] [address], [address], 03/30/2024 09:50:18 orthop edic surgeo n referr al 2023 024 [email or web address] 10 Macario Glez MD, [address] [place] [address], [address], 05/02/2024 08:25:18 orthop edic surgeo n referr al 2022 023 [email or web address] 10 [facility] (Damian Ybarra), [address] [place], [address], 12/10/2022 08:53:51 Procedures None record ed. Surgeries None record ed. Imaging MRI, lumbar spine, w/o contra st - Call Refere nce #: Rajat Nickerson 2022Re soluti on: Piyush tripp on 2022 at 11:10 am. Call ref #Rajat Nickerson 2022. 2022 023 [email or web address] 10 Not available 12/13/2022 08:33:18 MRI, thorac ic spine, w/o contra st - Call Refere nce #: Baylee [email or web address] 23Reso lution : Piyush tripp on 2022 at 10:16 am. Call ref #Levy [email or web address] 123. 2022 023 [email or web address] 10 Not available 12/13/2022 08:35:30 Medication Orders predni sone 10 mg tablet 2023 024 [facility]acy #1234, [address] [place], [address], 05/22/2024 11:18:37 pregab brendan 75 mg capsul e 2022 023 [facility]acy #1234, [address] [facility], [place], [address], 05/13/2023 16:11:10 diclof enac sodium 75 mg tablet ,delay ed releas e 2022 023 [facility]armacy #1234, [address] [place], [address], 05/13/2023 16:11:10 tramad ol 50 mg tablet 2022 023 [email or web address] [facility]/Pharmacy #1234, [address] [facility], [place], [address], 03/27/2024 14:28:56 predni sone 10 mg tablet 2022 023 [email or web address] [facility]/Pharmacy #1234, [address] [place], [address], 03/27/2024 14:28:21 Patient TargetsNo targets recorded. Patient [...] Francoise Paz, Internal Medicine, Encounter Date: 03/27/2024 Clinical Project Manager Referral for Diarrhea Referring Physician: Francoise Paz, Internal Medicine, Encounter Date: 03/27/2024 Results Created Date Observation Date Name Description Value Unit Range Abnormal Flag Note LastModifiedBy Organization Detail LastModifiedTime 01/02/2012/29/2022 MRI, thora cic spine , w/o contr ast No observ ation record ed. [email or web address] [facility] (Scheduling Dept) [address] [place], [address], 05/13/2023 15:56:15 01/02/20 23 12/29/2022 MRI, thora cic spine , w/o contr ast No observ ation record ed. [email or web address] [place] [address] - Outpatient Radiology [address] [place] [address] , [facility] [place], [address], 05/13/2023 15:56:15 07/29/20 24 05/21/2024 XR, lumbo sacra l spine , 2 or 3 view No observ ation record ed. [address] Daniel Rondon PA, , 07/29/2024 20:07:04 11/13/1911/09/2024 MRI, lumba r spine , w/o contr ast No observ ation record ed. [email or web address] [facility] (Medical Records) [address] [place] [address], [address], 11/12/2024 07:25:41 01/02/20 25 01/01/2025 fluor oscop y (PROC ) No observ ation record ed. [email or web address] [place] [address] (Medical Records) [address] [place], [address], 01/01/2025 14:23:12 Result Notes None recorded. Problems Name Problem SNOMED Code Status Onset Date Resolution Date Notes Provider Name and Address Organization Details Recorded Time Nicolasa morales carpal tunnel syndrome 97123426766 942599 Active 2018 Fortino Obregon DO [address] [place] [address], [address], [facility] 9 16:07:08 Osteoart hritis of right knee joint 13927346037 9100 Active 2021 Fortino Obregon DO [address] [place] [address], [address], [facility] 2 15:35:03 Pain of right knee joint 92554394917 4100 Active 2021 Fortino Obregon DO [address] [place] [address], [address], [facility] 2 08:42:43 Dyspnea on exertion 82999932 Active 2021 Fortino Obregon DO [address] [place] [address], [address], [facility] 2 10:37:46 Hyperkal emia 29874655 Active 2021 Fortino Obregon DO [address] [place] [address], [address], [facility] 2 13:39:57 Liver enzymes level above referenc e range 756446295 Active 2021 Fortino Obregon DO [address] [place] [address], [address], [facility] 2 09:01:34 Osteoart hritis 819154272 Active 2021 RASHMI BOLES [address] [place] [address], [address], [facility] 2 13:45:53 Paresthe yusuf of lower extremit y 345619298 Active 2022 Fortino Obregon, DO [address] [place], [address], [facility] 3 16:21:27 Lumbar radiculo rhina 828510877 Active 2022 RASHMI BOLES [address] [place], [address], [facility] 3 11:34:07 Spinal stenosis of lumbar region 21886443 Active 2022 RASHMI BOLES [address] [place], [address], [facility] 3 10:08:17 Hypergly cemia 95840374 Active 2022 Fortino Obregon, DO [address] [place], [address], [facility] 3 16:09:47 Gastroes ophageal reflux disease 469330179 Active 2017 Jonelle maguire [facility] 8 09:26:44 Steatoti c liver disease 585829475 Active 2017 Jonelle maguire [facility] 8 09:26:53 History of spinal fusion 17188417458 107 Active 2017 Jonelle maguire [facility] 8 09:27:03 Hyperten sive disorder 49144709 Active 2017 Jonelle maguire [facility] 8 09:27:07 Osteopen ia 582341157 Active 2017 Jonelle maguire [facility] 8 09:27:13 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 91342235 Active 2017 Jonelle maguire [facility] 8 09:27:53 History of hernia repair 25022560217 109 Active 2017 incarcera tripp L inguinal Jonelle maguire [facility] 8 09:28:36 Allergic rhinitis 77415834 [facility] 2017 [facility] 09:28:42 Gout 95091164 Active 2023 Fortino Obregon DO [address] [place] [address], [address], [facility] 4 13:40:53 Degenera tion of lumbar interver tebral disc 42759542 Active 2023 RASHMI BOLES [address] [place] [address], [address], [facility] 4 14:43:39 Diarrhea 68658022 Active 2023 RASHMI BOLES [address] [place] [address], [address], [facility] 4 14:53:19 Edema of lower extremit y 952706240 Active 2017 Fortino Obregon DO [address] [place] [address], [address], [facility] 8 14:19:49 Problem Notes None recorded. Procedures Surgical History Date Name Laterality Status Provider Name and Address Organization Details Recorded Time 024 Colonoscopy completed Fortino Obregon DO [address] [place] [address], [address], [facility] 06/28/2024 20:54:11 022 Corticosteroid Injection completed Fortino Obregon DO [address] [place] [address], [address], [facility] 12/25/2021 15:37:16 Imaging Results None recorded. Procedure [...] propionate 50 mcg/actuati on nasal spray,suspe nsion [place] 1 spray every day by intranasa l [...] Updated DateTime 3 173.99 cm 40 kg/m2 297912. 16 g 61 /min 98 % 98 % 185 mm[Hg] 80 mm[Hg] Marlyn Franklin [facility] 3 11:07:39 Date Recorded Body height Body mass index (BMI) Body weight Heart rate Oxygen saturation Oxygen saturation in Arterial blood by Pulse oximetry Systolic blood pressure Diastolic blood pressure Provider Name and Address Organization Details Last Updated DateTime 4 173.99 cm 39 kg/m2 353623. 02 g 72 /min 98 % 98 % 150 mm[Hg] 80 mm[Hg] Marlyn Franklin [facility] 4 14:30:40 Date Recorded Body height Body mass index (BMI) Body weight Heart rate Oxygen saturation Oxygen saturation in Arterial blood by Pulse oximetry Systolic blood pressure Diastolic blood pressure Provider Name and Address Organization Details Last Updated DateTime 3 173.99 cm 39.1 kg/m2 436741. 61 g 94 /min 96 % 96 % 159 mm[Hg] 90 mm[Hg] [facility] 3 15:32:44 Date Recorded Body height Body mass index (BMI) Body weight Heart rate Oxygen saturation Oxygen saturation in Arterial blood by Pulse oximetry Systolic blood pressure Diastolic blood pressure Provider Name and Address Organization Details Last Updated DateTime 3 173.99 cm 39 kg/m2 879292. 02 g 80 /min 95 % 95 % 130 mm[Hg] 80 mm[Hg] [facility] 3 10:22:55 Date Recorded Body height Body mass index (BMI) Body weight Heart rate Oxygen saturation Oxygen saturation in Arterial blood by Pulse oximetry Systolic blood pressure Diastolic blood pressure Provider Name and Address Organization Details Last Updated DateTime 4 173.99 cm 40 kg/m2 219262. 16 g 63 /min 95 % 95 % 138 mm[Hg] 70 mm[Hg] [facility] 4 10:55:45 Social History Question Answer Notes LastModified by Organizat ion Details LastModified Time Tobacco Smoking Status Never Smoker Not Available [facility] 06/24/2020 03:36:23 What Was The Date Of Your Most Recent Tobacco Screening? 05/22/2024 [email or web address] Information not available 05/22/2024 Sex: Unknown Functional Status Question Answer Note LastModified by Organization D etails LastModified Time Do you or have you ever used any other forms of tobacco or nicotine? No [email or web address] Information not available 05/13/2023 Mental Status None recorded. Family History Nothing Reported. Medical History Condition Response Coronary Artery Disease N Other N Gout N Kidney Stones N Blood Diseases N Breast Cancer N Blood Transfusion N Lung Disease N Depression N COPD [...] Disease N Pulmonary Embolism N Hypertension N Osteoporosis N Chicken Pox N Autism Spectrum Disorder (ASD) N Immunizations Vaccine Type Date Status Note Provider Nam e and Address Organization Details Recorded Time Tdap 01/17/2018 [facility]/2018 15:53:44 Past Encounters Encounter ID Performer Location Encounter Start Date Encounter Closed Date Diagnosis/Indication Diagnosis SNOMED-CT Code Diagnosis ICD10 Code Diagnosis Note [id number] Fortino Obregno [facility] [address] [place] [address], [place] [address] 11/23/2017 11:50:27 11/23/2017 12:30:17 Edema of lower extremity 231688725 R60.0 edema from amlodipine told to elevate legs and take new med and stop amlodipine [id number] Fortino Obregon [facility] [address] [facility], [place] [address] 01/17/2018 14:03:07 01/17/2018 15:31:23 Hypertensive disorder 87005449 I10 doing great at this point Edema of l ower extremity 332537191 R60.0 edema from amlodipine told to elevate legs and take new med and stop amlodipine 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 83322425 M51.34 Active or passive immunization 416955911 Z23 tdap at pharmacy Laceration of finger 274 183500 S61.219A steri strip closure and sterile dressings [id number] Fortino Obregon [facility] [address] [facility], [place] [address] 07/24/2018 15:19:25 07/24/2018 16:03:58 Hypertensive disorder 48379100 I10 ok right here but has been consistent ly elevated at home is starting to get headaches also has been noting episodes of lightheade dness and spacey feeling he does have dm in the family will give him a glucometer to check his sugars and he hansel check bp and will have him follow closely Tick bite 29112969 W57.X XXA prob lyme disease [id number] Fortino Segovia Peri [facility] [address] [facility],[place] [address] 07/31/2018 15:32:57 07/31/2018 16:45:36 Hypertensive disorder 32045615 I10 ok right here but has been [...] with more lab when approp Allergic rhinitis 186035 04 J30.9 quiet [id number] Fortino Walkerha [facility] [address] [facility],[place], [place] 7 03/23/2019 15:40:37 03/23/2019 16:15:59 Hypertensive disorder 16201451 I10 ok right here but has been [...] it was 98 Bilateral carpal tunnel syndrome 1081399933 4944299 G56.03 needs a referral to surgeon Incontinence of feces 72 012507 R15.9 [id number] Fortino Segovia Peri [facility] [address] [facility],[place] [address] 06/15/2019 13:30:22 06/15/2019 15:15:47 Liver enzymes level above reference range 598186853 R74.8 will repeat test no risk factors and is assoc with the fatty liver Steatotic liver disease K76.0 will cont to lose wgt and we will follow with more lab when approp Hypertensive disorder 38 952375 I10 ok right here but has been consistent ly elevated at home still bp is decent here in office using non automated cuff he hansel check bp and will have him follow closely stopped the hctz as he has been getting too light headed and he has felt much better since eating keto and cont losing wgt >15lbs [id number] Fortino Obregon [facility] [address] [facility] [address] [address] 06/22/2019 15:46:24 06/22/2019 16:37:52 Hypertensive disorder 46904550 I10 no longer on bp meds as of 2-3 months ago due to possible drug side effect states needs to lose weight bp was higher at other offices supposed to be monitoring BP at home = will give guidelines to call for BP persistent ly elevated above 140/90 Gastroesop hageal reflux disease 148796373 K21.9 asx 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 54485421 M51.34 on meloxicam Tick bite without infection 778144225 T14.8XXD monitor for signs of infection/ bullseye appears to be healing well at this time [id number] Fortino Obregon [facility] [address] [facility],[place] [address] 07/16/2019 08:57:33 07/16/2019 10:06:09 Essential hypertension 18535854 I10 Low back pain 816725474 M54.5 meloxicam not really helpful hansel try diclofenac bid prn considerin g PT - will call Gastroesop hageal reflux disease 687395326 K21.9 asx [id number] Fortino Obregon [facility] [address] [facility] [address] [address] 11/16/2019 09:49:23 11/16/2019 10:20:00 Benign paroxysmal positional vertigo 958173312 H81.10 Fever 903767356 R50.9 now resolved working dx is a virus with URI causing a vertigo rxn no sob sl cough afeb now [id number] Fortino Obregon [facility] [address] [facility] [address] [address] 11/25/2020 14:48:58 11/25/2020 15:51:09 Hypertensive disorder 48795638 I10 ok right here but has been consistent ly elevated at home still bp is decent here in office using non automated cuff he hansel check bp and will have him follow closely stopped the hctz as he has been getting too light headed and he has felt much better since eating keto and cont losing wgt >15lbs Gastroesop hageal reflux disease 349860649 K21.9 no change in tx Edema of l ower extremity 068830936 R60.0 edema from amlodipine told to elevate legs and take new med and stop amlodipine Dyspnea on exertion 6084 5006 R06.09 worrisome this is cardiac and we need to hopefully prove this is deconditio jayesh only Sleep apnea 90666869 G47 .30 [id number] Fortino Obregon [facility] [address] [facility],[place] [address] 08/25/2021 08:51:34 08/26/2021 13:42:49 Essential hypertension 32610089 I10 stable Low back pain 671408620 M54.59 stable on medication takes PRN with food per instructio nsavoid use with alcohol and other NSAIDs Multiple b enign melanocytic nevi 757091306 D22.5 refer to nuevo derm for eval and biopsy Gastroesop hageal reflux disease 496924881 K21.9 stable [id number] Fortino Obregon [facility] [address] [facility],[place] [employer] [place] [place] [address] 11/18/2021 09:18:00 11/18/2021 14:30:40 Anterior knee pain 558788930 M25.561 will fu with XRhistory of right knee arthoscopy Infection of tick bite 657132367 W57.XXXA will start on abx and fu with lyme panel [id number] Fortino Obregon [facility] [address] [facility],[place] [address] 12/25/2021 14:55:02 12/28/2021 11:48:02 Hypertensive disorder 95730345 I10 ok right here but has been [...] best Osteoarthr itis of right knee joint 4235569992 65115 M17.11 saul inj well toerated [id number] Fortino Obregon [facility] [address] [facility],[place] [address] 05/11/2022 09:57:07 05/11/2022 10:46:52 Active or passive immunization 279914922 Z23 tdap at pharmacy Adult [facility] th examination 492703970 Z00.01 pt has gained more weight has become more deconditio kevin more sobdaytime somnolence he is not wearing cpap says he does not tolerate has evid of cts bilat L>Rhas noted djd changes in hands and kneesright knee with noted effusion Dyspnea on exertion 6084 5006 R06.09 worrisome this is cardiac and we need to hopefully prove this is deconditio jayesh only [id number] Fortino Obregon [facility] [address] [facility] [address] 12/08/2022 11:00:10 12/08/2022 12:03:20 Lumbar radiculopathy 221869731 M54.16 agreed to MRI lumbar and thoracicst art tramadol and prednisone can use diclofenac 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 57740538 M51.34 will fu with patient after MRIs [id number] Fortino Obregon [facility] [address] [facility],[place] [address] 05/13/2023 15:27:13 05/13/2023 16:27:19 Gastroesophageal reflux disease 822964151 K21.9 no change in tx Spinal kali nosis of lumbar region 04060595 M48.062 needs to lose the wgt as well Bilateral carpal tunnel syndrome 4243045022 3740154 G56.03 needs a referral to surgeon when ready but NCT is not since before 2018 Low back pain 894126394 M54.50 Hyperglycemia 71956449 R 73.9 [id number] Fortino Obregon [facility] [address] [facility],[place] [address] 05/17/2023 10:17:49 05/17/2023 11:24:26 Active or passive immunization 684883746 Z23 tdap at pharmacy Adult heal th examination 362678013 Z00.00 pt has gained more weight has become more deconditio kevin more sobdaytime somnolence he is not wearing cpap says he does not tolerate has evid of cts bilat L>Rhas noted djd changes in hands and kneesright knee with noted effusion 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 97359299 M51.34 Dyspnea on exertion 6084 5006 R06.09 worrisome this is cardiac and we need to hopefully prove this is deconditio jayesh only Hyperglycemia 58876520 R 73.9 we will rech a1c in 2 months Hyperkalemia 30805492 E8 7.5 Hypertensive disorder 38 473536 I10 ok right here but has been [...] him on losartan which worked the best [id number] Fortino Obregon [facility] [address] [facility],[place] [address] 03/27/2024 14:18:11 03/27/2024 16:40:14 Degeneration of lumbar intervertebral disc 86651033 M51.36 would like a second Screening for malignant neoplasm of colon 182357755 Z12.11 agreed to colonoscop y Diarrhea 15595400 A07.8 will set up with GI for fu colonoscop y [id number] Fortino Obregon [facility] [address] [facility] [address],[employer] [place] [address] 05/22/2024 10:49:58 05/22/2024 11:39:49 Hypertensive disorder 07303433 I10 ok right here but has been [...] best 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 70822427 M51.34 Lumbar radiculopathy 128 571361 M54.16 awaiting [place] reply Adult heal th examination 750705760 Z00.00 still struggling with the backwill need to get fbw Health Concerns Section Related Observation LastModified by Organization Detai ls LastModified Time None Recorded Concern Status LastModified by Organization Details LastModified Time None Recorded Advance Directives Directive None Recorded Payers Insurance Date Sequence Insurance Name Policy Number Policy Cedeno Covered Member ID Cedeno Member ID Guarantor Name 12/17/2024 1 [employer] [facility] (PPO) [id number] Remy Hernández [id number] Remy Hernández 06/09/2022 1 UNSPECIFIED PRISCILLA T PAYOR Remy Hernández Notes Date Note Type Note Provider Name [...] discomfort in the meantime RASHMI BOLES [address] [place], [address], [facility] 12/08/2022 11:52:10 3 text/html here for rechk and is doing the same Fortino Obregon DO [address] [place], [address], [facility] 05/13/2023 16:12:19 3 text/html Annual [...] Vision:no vision problems Fortino Obregon DO [address] [place], [address], [facility] 05/17/2023 10:55:07 4 text/html f/o lumbar spine pain the patient is doing okaystill having a lot of back pain, lumbar spine painh/x of fusion L5-S1 about 17 years agorecently had another surgery with Dr. Lara out of [facility] for the other levels of his lumbar [...] with patient GI referral RASHMI BOLES [address] [place], [address], [facility] 03/27/2024 15:03:31 4 text/html here for cpebiggest issue is his back still waiting on mclean to respondseen by dr glez office Fortino Obregon DO [address] [facility], [place], [address], [facility] 05/22/2024 11:24:35
== END 2025-02-05 14:34 | disposition home or self-care (01) ==
LOC: HO.HNS 13:37
PROVIDERS: PCP Internal Medicine; Visit Provider Physician Assistant
DX: Z98.1 Arthrodesis status (principal)
CPT/HCPCS: 99024

== ENCOUNTER → 2025-02-05 13:36 | Outpatient (BNVA) | payer OTHER, SELFPAY | PROVIDERS: PCP Internal Medicine; Visit Provider Physician Assistant ==

== ENCOUNTER 2025-02-15 11:25 | Outpatient (AMB) | payer OTHER, SELFPAY ==
--- NOTE | 2025-02-15 12:15 | HO.SPINEOV ---
Intake Visit Reasons: follow up Intake Note: Mr. Hernández is here today for a F/u. Chef De Cuisine Required: No Allergies No Known Allergies Allergy (Verified 02/15/25 12:15) Assessment & Plan Assessment & Plan (1) S/P lumbar fusion: Code(s): Z98.1 - Arthrodesis status Category: Medical Plan Mr Hernández is here to have his sutures removed. About 10 days ago or so adi Waldron PAC place sutures to help approximate his wound edges to get it to heal. It is still somewhat tender but is no longer leaking. There is a dried up small eschar that is maybe 1 cm in diameter. There is no redness around the wound. I took out his sutures with no incident. I told him to continue to wash it daily with soap in warm water but that he did not need to apply any specific creams to it or ointments. I do not think he needs anymore antibiotics. He can follow up with Adi in 2-3 weeks. Maxmi Ramon MD, PhD [facility] Coding Level of Care Code Global (13423) Diagnoses S/P lumbar fusion Z98.1
--- OUTSIDE RECORDS SUMMARY | 2025-02-15 12:39 | XMS_ITS | Data Portability ---
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) MDM MODERATE MUST MEET 2 OUT OF [...] Go To The Location Of Their Choice, [id number] 05/30/2024 04:21:32 CBC w/ auto diff 2023 [facility] (Centralized Electronic Ordering - All Locations), Patient Can Go To The Location Of Their Choice, [address] 05/30/2024 04:21:32 PSA, serum or plasma 2023 024 [facility] (Centralized Electronic Ordering - All Locations), Patient Can Go To The Location Of Their Choice, [address] 05/30/2024 04:21:32 lipid panel, blood 2023 024 [facility] (Centralized Electronic Ordering - All Locations), Patient Can Go To The Location Of Their Choice, [address] 05/30/2024 04:21:32 vitami n D, 25-hyd stacey, total, serum 2023 024 [facility] (Centralized Electronic Ordering - All Locations), Patient Can Go To The Location Of Their Choice, [address] 05/30/2024 04:21:31 HbA1c (hemog lobin A1c), blood 2022 023 [facility], [address] [place] [address], [place], [address], 05/17/2023 10:55:25 HbA1c (hemog lobin A1c), blood 2022 023 [facility], [place], [address], 05/16/2023 12:47:20 Referral gastro entero logist referr al 2023 024 [facility] , [address] [place] [address], [address], 03/30/2024 09:50:18 orthop edic surgeo n referr al 2023 024 [email or web address] 10 Macario Glez MD, [address] [place] [address], [address], 05/02/2024 08:25:18 orthop edic surgeo n referr al 2022 023 [email or web address] 10 [facility] (Damian Ybarra), [address] [place], [address], 12/10/2022 08:53:51 Procedures None record ed. Surgeries None record ed. Imaging MRI, lumbar spine, w/o contra st - Call Refere nce #: Rajat Nickerson 2022 Resolu tion: Piyush tripp on 2022 at 11:10 am. Call ref #Rajat Nickerson 2022. 2022 023 [email or web address] 10 Not available 12/13/2022 08:33:18 MRI, thorac ic spine, w/o contra st - Call Refere nce #: [email or web address] [email or web address] Resolu tion: Piyush tripp on 2022 at 10:16 am. Call ref #Levy [id number] 123. 2022 023 [email or web address] Not available 12/13/2022 08:35:30 Medication Orders predni sone [address] [facility]armacy #1234, [address] [place], [address], 05/22/2024 11:18:37 pregab brendan 75 mg capsul e [address] [facility]armacy #1234, [address] [facility], [place], [address], 05/13/2023 16:11:10 diclof enac sodium 75 mg tablet ,delay ed releas e [address] [facility]armacy #1234, [address] [place], [address], 05/13/2023 16:11:10 tramad ol 50 mg tablet 2022 023 [facility], [address] [facility], [place], [address], 03/27/2024 14:28:56 predni sone 10 mg tablet 2022 023 [email or web address] [facility]/Pharmacy #1234, [address] [place], [address], 03/27/2024 14:28:21 Patient TargetsNo targets recorded. Patient [...] Francoise Paz, Internal Medicine, Encounter Date: 03/27/2024 Marketing Automation Specialist Referral for Diarrhea Referring Physician: Francoise Paz, Internal Medicine, Encounter Date: 03/27/2024 Results Created Date Observation Date Name Description Value Unit Range Abnormal Flag Note LastModifiedBy Organization Detail LastModifiedTime 01/02/2012/29/2022 MRI, thora cic spine , w/o contr ast No observ ation record ed. [email or web address] [facility] (Scheduling Dept) [address] [place], [address], 05/13/2023 15:56:15 01/02/20 23 12/29/2022 MRI, thora cic spine , w/o contr ast No observ ation record ed. [email or web address] [place] [address] - Outpatient Radiology [address] [place] [address] , [place], [address], 05/13/2023 15:56:15 07/29/20 24 05/21/2024 XR, lumbo sacra l spine , 2 or 3 view No observ ation record ed. [address] , [place], [address], 07/29/2024 20:07:04 11/13/19 25 11/09/2024 MRI, lumba r spine , w/o contr ast No observ ation [facility]. [email or web address] [address] [place] [address], [address], 11/12/2024 07:25:41 01/02/20 25 01/01/2025 fluor oscop y (PROC ) No observ ation record ed. [email or web address] [place] [address] (Medical Records) [address] [facility], [place], [address], 01/01/2025 14:23:12 Result Notes None recorded. Problems Name Problem SNOMED Code Status Onset Date Resolution Date Notes Provider Name and Address Organization Details Recorded Time Biltatea l carpal tunnel syndrome 41950260623 852946 Active 2018 Fortino Obregon DO [address] [place] [address], [address], [facility] 9 16:07:08 Osteoart hritis of right knee joint 98494696986 9100 Active 2021 Fortino Obregon DO [address] [place] [address], [address], [facility] 2 15:35:03 Pain of right knee joint 97728770978 4100 Active 2021 Fortino Obregon DO [address] [place] [address], [address], [facility] 2 08:42:43 Dyspnea on exertion 16654670 Active 2021 Fortino Obregon DO [address] [place] [address], [address], [facility] 2 10:37:46 Hyperkal emia 49295250 Active 2021 Fortino Obregon DO [address] [place] [address], [address], [facility] 2 13:39:57 Liver enzymes level above referenc e range 234268256 Active 2021 Fortino Obregon DO [address] [place] [address], [address], [facility] 2 09:01:34 Osteoart hritis 224125309 Active 2021 RASHMI BOLES [address] [place] [address], [address], [facility] 2 13:45:53 Paresthe yusuf of lower extremit y 021582740 Active 2022 Fortino Obregon, DO [address] [place], [address], [facility] 3 16:21:27 Lumbar radiculo rhina 754736881 Active 2022 RASHMI BOLES [address] [place], [address], [facility] 3 11:34:07 Spinal stenosis of lumbar region 18911541 Active 2022 RASHMI BOLES [address] [place], [address], [facility] 3 10:08:17 Hypergly cemia 30877628 Active 2022 Fortino Obregon, [address] [place] [address], [address], [facility] 3 16:09:47 Gastroes ophageal reflux disease 021863483 Active 2017 Jonelle maguire [facility] 8 09:26:44 Steatoti c liver disease 809466766 Active 2017 Jonelle maguire [facility] 8 09:26:53 History of spinal fusion 58312132942 107 Active 2017 Jonelle maguire [facility] 8 09:27:03 Hyperten sive disorder 22205902 Active 2017 Jonelle maguire [facility] 8 09:27:07 Osteopen ia 785541777 Active 2017 Jonelle maguire [facility] 8 09:27:13 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 96770639 Active 2017 Jonelle maguire [facility] 8 09:27:53 History of hernia repair 78399648101 109 Active 2017 incarcera tripp L inguinal [facility] 8 09:28:36 Allergic rhinitis 70232374 Active 2017 [facility] 8 09:28:42 Gout 92869288 Active 2023 Fortino Obregon DO [address] [place] [address], [address], [facility] 4 13:40:53 Degenera tion of lumbar interver tebral disc 73332519 Active 2023 RASHMI BOLES [address] [place] [address], [address], [facility] 4 14:43:39 Diarrhea 34098359 Active 2023 RASHMI BOLES [address] [place] [address], [address], [facility] 4 14:53:19 Edema of lower extremit y 790269851 Active 2017 Fortino Obregon DO [address] [place] [address], [address], [facility] 8 14:19:49 Problem Notes None recorded. Procedures Surgical History Date Name Laterality Status Provider Name and Address Organization Details Recorded Time 024 Colonoscopy completed Fortino Obregon DO [address] [place] [address], [address], [facility] 06/28/2024 20:54:11 022 Corticosteroid Injection completed Fortino Obregon DO [address] [place] [address], [address], [facility] 12/25/2021 15:37:16 Imaging Results None recorded. Procedure [...] propionate 50 mcg/actuati on nasal spray,suspe nsion [place] 1 spray every day by intranasa l [...] Updated DateTime 3 173.99 cm 40 kg/m2 056589. 16 g 61 /min 98 % 98 % 185 mm[Hg] 80 mm[Hg] Marlyn Franklin [facility] 3 11:07:39 Date Recorded Body height Body mass index (BMI) Body weight Heart rate Oxygen saturation Oxygen saturation in Arterial blood by Pulse oximetry Systolic blood pressure Diastolic blood pressure Provider Name and Address Organization Details Last Updated DateTime 4 173.99 cm 39 kg/m2 134562. 02 g 72 /min 98 % 98 % 150 mm[Hg] 80 mm[Hg] Marlyn Franklin [facility] 4 14:30:40 Date Recorded Body height Body mass index (BMI) Body weight Heart rate Oxygen saturation Oxygen saturation in Arterial blood by Pulse oximetry Systolic blood pressure Diastolic blood pressure Provider Name and Address Organization Details Last Updated DateTime 3 173.99 cm 39.1 kg/m2 262020. 61 g 94 /min 96 % 96 % 159 mm[Hg] 90 mm[Hg] [facility] 3 15:32:44 Date Recorded Body height Body mass index (BMI) Body weight Heart rate Oxygen saturation Oxygen saturation in Arterial blood by Pulse oximetry Systolic blood pressure Diastolic blood pressure Provider Name and Address Organization Details Last Updated DateTime 3 173.99 cm 39 kg/m2 158083. 02 g 80 /min 95 % 95 % 130 mm[Hg] 80 mm[Hg] [facility] 3 10:22:55 Date Recorded Body height Body mass index (BMI) Body weight Heart rate Oxygen saturation Oxygen saturation in Arterial blood by Pulse oximetry Systolic blood pressure Diastolic blood pressure Provider Name and Address Organization Details Last Updated DateTime 4 173.99 cm 40 kg/m2 147415. 16 g 63 /min 95 % 95 % 138 mm[Hg] 70 mm[Hg] [facility] 4 10:55:45 Social History Question Answer Notes LastModified by Organizat ion Details LastModified Time Tobacco Smoking Status Never Smoker Not Available [facility] 06/24/2020 03:36:23 What Was The Date Of Your Most Recent Tobacco Screening? 05/22/2024 [email or web address] Information not available 05/22/2024 Sex: Unknown Functional Status Question Answer Note LastModified by Organization D etails LastModified Time Do you or have you ever used any other forms of tobacco or nicotine? No [email or web address] Information not available 05/13/2023 Mental Status None [...] Details Recorded Time Tdap 01/17/2018 completed [facility] 07/24/2018 15:53:44 Past Encounters Encounter ID Performer Location Encounter Start Date Encounter Closed Date Diagnosis/Indication Diagnosis SNOMED-CT Code Diagnosis ICD10 Code Diagnosis Note [id number] Fortino Obregon [facility] [address] [facility], [place] [address] 11/23/2017 11:50:27 11/23/2017 12:30:17 Edema of lower extremity 637506544 R60.0 edema from amlodipine told to elevate legs and take new med and stop amlodipine [id number] Fortino Obregon [facility] [address] [facility],[place] [address] 01/17/2018 14:03:07 01/17/2018 15:31:23 Hypertensive disorder 88229813 I10 doing great at this point Edema of l ower extremity 203638159 R60.0 edema from amlodipine told to elevate legs and take new med and stop amlodipine 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 15253239 M51.34 Active or passive immunization 122508708 Z23 tdap at pharmacy Laceration of finger 274 573870 S61.219A steri strip closure and sterile dressings [id number] Fortino Obregon [facility] [address] [facility], [employer] [facility]rapeuticsAM[facility] [place] [address] 07/24/2018 15:19:25 07/24/2018 16:03:58 Hypertensive disorder 98753153 I10 ok right here but has been consistent ly elevated at home is starting to get headaches also has been noting episodes of lightheade dness and spacey feeling he does have dm in the family will give him a glucometer to check his sugars and he hansel check bp and will have him follow closely Tick bite 61087437 W57.X XXA prob lyme disease [id number] Fortino Obregon [facility] [address] [facility],[place] [address] 07/31/2018 15:32:57 07/31/2018 16:45:36 Hypertensive disorder 69296616 I10 ok right here but has been consistent ly elevated at home still bp is decent here in office using non automated cuff he hansel check bp and will have him follow closely he had cjhecked his glucose when light headed and it was 98 Steatotic liver disease 776070957 K76.0 will cont to lose wgt and we will follow with more lab when approp Allergic rhinitis 694070 04 J30.9 quiet [id number] Fortino Obregon [facility] [address] [facility],[place], [place] 7 03/23/2019 15:40:37 03/23/2019 16:15:59 Hypertensive disorder 17977959 I10 ok right here but has been [...] it was 98 Bilateral carpal tunnel syndrome 8048694222 2227934 G56.03 needs a referral to surgeon Incontinence of feces 72 714889 R15.9 [id number] Fortino Walkerha [facility] [address] [facility],[place] [address] 06/15/2019 13:30:22 06/15/2019 15:15:47 Liver enzymes level above reference range 642159624 R74.8 will repeat test no risk factors and is assoc with the fatty liver Steatotic liver disease K76.0 will cont to lose wgt and we will follow with more lab when approp Hypertensive disorder 38 494427 I10 ok right here but has been consistent ly elevated at home still bp is decent here in office using non automated cuff he hansel check bp and will have him follow closely stopped the hctz as he has been getting too light headed and he has felt much better since eating keto and cont losing wgt >15lbs [id number] Fortino Obregon [facility] [address] [facility] [address], [place] [address] 06/22/2019 15:46:24 06/22/2019 16:37:52 Hypertensive disorder 52264751 I10 no longer on bp meds as of 2-3 months ago due to possible drug side effect states needs to lose weight bp was higher at other offices supposed to be monitoring BP at home = will give guidelines to call for BP persistent ly elevated above 140/90 Gastroesop hageal reflux disease 470356513 K21.9 asx 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 10645846 M51.34 on meloxicam Tick bite without infection 594200672 T14.8XXD monitor for signs of infection/ bullseye appears to be healing well at this time [id number] Fortino Obregon [facility] [address] [facility], [employer] by [employer] [facility] [place] [address] 07/16/2019 08:57:33 07/16/2019 10:06:09 Essential hypertension 11192766 I10 Low back pain 562479196 M54.5 meloxicam not really helpful hansel try diclofenac bid prn considerin g PT - will call Gastroesop hageal reflux disease 796339430 K21.9 asx [id number] Fortino Obregon DO [facility] [address] [facility] [place], [employer] D [place] [address] 11/16/2019 09:49:23 11/16/2019 10:20:00 Benign paroxysmal positional vertigo 703329871 H81.10 Fever 859653957 R50.9 now resolved working dx is a virus with URI causing a vertigo rxn no sob sl cough afeb now [id number] Fortino Obregon [facility] [address] [facility] [place] [address] 11/25/2020 14:48:58 11/25/2020 15:51:09 Hypertensive disorder 51430008 I10 ok right here but has been consistent ly elevated at home still bp is decent here in office using non automated cuff he hansel check bp and will have him follow closely stopped the hctz as he has been getting too light headed and he has felt much better since eating keto and cont losing wgt >15lbs Gastroesop hageal reflux disease 182794410 K21.9 no change in tx Edema of l ower extremity 070664507 R60.0 edema from amlodipine told to elevate legs and take new med and stop amlodipine Dyspnea on exertion 6084 5006 R06.09 worrisome this is cardiac and we need to hopefully prove this is deconditio jayesh only Sleep apnea 70534546 G47 .30 [id number] Fortino Obregon [facility] [address] [facility],[place] [place] [address] 08/25/2021 08:51:34 08/26/2021 13:42:49 Essential hypertension 14361212 I10 stable Low back pain 991738748 M54.59 stable on medication takes PRN with food per instructio nsavoid use with alcohol and other NSAIDs Multiple b enign melanocytic nevi 267563268 D22.5 refer to [facility] for eval and biopsy Gastroesop hageal reflux disease 681745082 K21.9 stable [id number] Fortino Obregon [facility] [address] [facility],[place] [employer] D [facility] [place] [address] 11/18/2021 09:18:00 11/18/2021 14:30:40 Anterior knee pain 596053818 M25.561 will fu with XRhistory of right knee arthoscopy Infection of tick bite 601315290 W57.XXXA will start on abx and fu with lyme panel [id number] Fortino Obregon [facility] [address] [facility],[place] [address] 12/25/2021 14:55:02 12/28/2021 11:48:02 Hypertensive disorder 28949343 I10 ok right here but has been [...] best Osteoarthr itis of right knee joint 2640171476 46015 M17.11 saul inj well toerated [id number] Fortino Obregon [facility] [address] [facility],[place] D [facility] [address] 05/11/2022 09:57:07 05/11/2022 10:46:52 Active or passive immunization 872635350 Z23 tdap at pharmacy Adult [facility] th examination 617596521 Z00.01 pt has gained more weight has become more deconditio kevin more sobdaytime somnolence he is not wearing cpap says he does not tolerate has evid of cts bilat L>Rhas noted djd changes in hands and kneesright knee with noted effusion Dyspnea on exertion 6084 5006 R06.09 worrisome this is cardiac and we need to hopefully prove this is deconditio jayesh only [id number] Fortino Obregon [facility] [address] [facility], it[place] [facility] [place] [address] 12/08/2022 11:00:10 12/08/2022 12:03:20 Lumbar radiculopathy 018470948 M54.16 agreed to MRI lumbar and thoracicst art tramadol and prednisone can use diclofenac 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 07712892 M51.34 will fu with patient after MRIs [id number] Fortino Obregon [facility] [address] [facility],[place] [address] 05/13/2023 15:27:13 05/13/2023 16:27:19 Gastroesophageal reflux disease 059499499 K21.9 no change in tx Spinal kali nosis of lumbar region 22978431 M48.062 needs to lose the wgt as well Bilateral carpal tunnel syndrome 2836976763 0871628 G56.03 needs a referral to surgeon when ready but NCT is not since before 2018 Low back pain 404232194 M54.50 Hyperglycemia 64842481 R 73.9 [id number] Fortino Obregon [facility] [address] [facility],[place] [address] 05/17/2023 10:17:49 05/17/2023 11:24:26 Active or passive immunization 651502657 Z23 tdap at pharmacy Adult heal th examination 676033669 Z00.00 pt has gained more weight has become more deconditio kevin more sobdaytime somnolence he is not wearing cpap says he does not tolerate has evid of cts bilat L>Rhas noted djd changes in hands and kneesright knee with noted effusion 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 21484915 M51.34 Dyspnea on exertion 6084 5006 R06.09 worrisome this is cardiac and we need to hopefully prove this is deconditio jayesh only Hyperglycemia 85417253 R 73.9 we will rech a1c in 2 months Hyperkalemia 66965974 E8 7.5 Hypertensive disorder 38 208056 I10 ok right here but has been [...] him on losartan which worked the best [id number] Fortino Obregon [facility] [address] [facility], [place] [address] 03/27/2024 14:18:11 03/27/2024 16:40:14 Degeneration of lumbar intervertebral disc 20329977 M51.36 would like a second Screening for malignant neoplasm of colon 437898444 Z12.11 agreed to colonoscop y Diarrhea 97183571 A07.8 will set up with GI for fu colonoscop y [id number] Fortino Obregon DO [facility] [address] [facility] [address],[place] [address] 05/22/2024 10:49:58 05/22/2024 11:39:49 Hypertensive disorder 18064779 I10 ok right here but has been [...] best 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 38284152 M51.34 Lumbar radiculopathy 128 976361 M54.16 awaiting [place] reply Adult heal th examination 394344330 Z00.00 still struggling with the backwill need to get fbw Health Concerns Section Related Observation LastModified by Organization Detai ls LastModified Time None Recorded Concern Status LastModified by Organization Details LastModified Time None Recorded Advance Directives Directive None Recorded Payers Insurance Date Sequence Insurance Name Policy Number Policy Cedeno Covered Member ID Cedeno Member ID Guarantor Name 12/17/2024 1 [employer] [id number] Remy Hernández [id number] Remy Hernández 06/09/2022 1 UNSPECIFIED PRISCILLA [...] discomfort in the meantime RASHMI BOLES [address] [place], [address], [facility] 12/08/2022 11:52:10 3 text/html here for rechk and is doing the same Fortino Obregon DO [address] [place], [address], [facility] 05/13/2023 16:12:19 3 text/html [...] Vision:no vision problems Fortino Obregon DO [address] [place], [address], [facility] 05/17/2023 10:55:07 4 text/html [...] with patient GI referral RASHMI BOLES [address] [place], [address], [facility] 03/27/2024 15:03:31 4 text/html here for cpebiggest issue is his back still waiting on [place] to respondseen by dr glez office Fortino Obregon DO [address] [facility], [place], [address], [facility] 05/22/2024 11:24:35
== END 2025-02-15 12:29 | disposition home or self-care (01) ==
LOC: HO.HNS 11:26
PROVIDERS: PCP Internal Medicine; Visit Provider Physician Assistant
DX: Z98.1 Arthrodesis status (principal)
CPT/HCPCS: 99024

== ENCOUNTER 2025-03-05 13:13 | Outpatient (AMB) | payer OTHER, SELFPAY ==
--- NOTE | 2025-03-05 13:15 | HO.SPINEOV ---
Intake Visit Reasons: 2nd Post op visit Intake Note: Mr. Hernández is here today for his 2nd post op visit. [employer] Required: No Allergies No Known Allergies Allergy (Verified 03/05/25 13:32) Assessment & Plan Assessment & Plan (1) S/P lumbar fusion: Code(s): Z98.1 - Arthrodesis status Category: Surgical Plan Procedure: L4-5 OLIFHilary Alberto is a pleasant 64-year-old male who comes in today for his 2nd postoperative visit after having a L4-[address] Ramon a couple of months ago. He had a somewhat complicated postoperative course and had his lateral incision open partially after surgery. This was repaired in clinic. See previous office visit notes for specifics of this. He reports that since having his sutures removed the incision has healed up well. There is still a small scab there, but he states that this is almost fully healed. Unfortunately, he continues to report severe axial low back pain similar to the pain that he had prior to surgery. He does not report any pain shooting down his left lower extremity, but does state he still has hypoesthesia over the left lower extremity. He discussed this with RASHMI Pascual prior to surgery and understands that this likely will not improve due to longstanding nerve damage. He reports that his pain is worse with activity such as walking. He is able to obtain relief by sitting down and resting. He has remained fairly active since his surgery, and states that his is 78 years old, so he has had to complete all of the housework and/or heavy lifting around the home. He also has been carrying his 100 lb dog outside to use the bathroom multiple times per day as the dog recently had knee surgery. No new neurological deficits. The patient ambulates well and rises from seated position without difficulty. He uses no assistive devices to ambulate. His lateral incision site is closed, with a small scab with the top of the incision. I believe that due to Remy erazo disclosure of continued pain despite surgical attempts to relieve his pain, we should order a repeat lumbar MRI to ensure there is no continued nerve compression behind the L4-5 segment. I reviewed his MRI imaging which does show fairly significant compression at 4 5 prior to his surgery. He may need subsequent decompression, or watchful waiting depending on MRI results. Adi Ramon MD,PhD [facility] Orders: Orders XR lumbar spine 4V min Today M54.9 - Dorsalgia, unspecified MR lumbar spine wo con Today Z98.1 - Arthrodesis status Coding Level of Care Code Global (15800) Diagnoses S/P lumbar fusion Z98.1
--- OUTSIDE RECORDS SUMMARY | 2025-03-05 14:37 | XMS_ITS | Data Portability ---
Author Organization [facility], Telehealth Patient Home Address [address] [place] [address] Assessment Encounter Date Assessment Date Assessment LastModified by Organization Details LastModified Time 05/13/2023 05/13/2023 [address] [place] [address] ([employer]) MDM MODERATE MUST MEET 2 OUT OF [...] Go To The Location Of Their Choice, [id number] 05/30/2024 04:21:32 CBC w/ auto diff 2023 MO[facility] (Centralized Electronic Ordering - All Locations), Patient Can Go To The Location Of Their Choice, [id number] 05/30/2024 04:21:32 PSA, serum or plasma 2023 024 [facility] (Centralized Electronic Ordering - All Locations), Patient Can Go To The Location Of Their Choice, [id number] 05/30/2024 04:21:32 lipid panel, blood 2023 024 [facility] (Centralized Electronic Ordering - All Locations), Patient Can Go To The Location Of Their Choice, [id number] 05/30/2024 04:21:32 vitami n D, 25-hyd stacey, total, serum 2023 024 [facility] (Centralized Electronic Ordering - All Locations), Patient Can Go To The Location Of Their Choice, [id number] 05/30/2024 04:21:31 HbA1c (hemog lobin A1c), blood 2022 023 [facility], [address] [place] [address], [place], [address], 05/17/2023 10:55:25 HbA1c (hemog lobin A1c), blood 2022 023 [facility], [place], [address], 05/16/2023 12:47:20 Referral gastro entero logist referr al 2023 024 [facility] , [address] [place] [address], [address], 03/30/2024 09:50:18 orthop edic surgeo n referr al 2023 024 [email or web address] 10 Macario Glez MD, [address] [place] [address], [address], 05/02/2024 08:25:18 orthop edic surgeo n referr al 2022 023 [email or web address] 10 [facility] (Damian Ybarra), [address] [place], [address], 12/10/2022 08:53:51 Procedures None record ed. Surgeries None record ed. Imaging MRI, lumbar spine, w/o contra st - Call Refere nce #: Rajat Nickerson 2022 Resolu tion: Piyush tripp on 2022 at 11:10 am. Call ref #Rajat Nickerson 2022. 2022 023 [email or web address] 10 Not available 12/13/2022 08:33:18 MRI, thorac ic spine, w/o contra st - Call Refere nce #: [email or web address] Resolu tion: Piyush tripp on 2022 at 10:16 am. Call ref #Levy [id number] 123. 2022 023 [email or web address] Not available 12/13/2022 08:35:30 Medication Orders predni sone 10 mg tablet 2023 024 [facility], [address] [place], [address], 05/22/2024 11:18:37 pregab brendan 75 mg capsul e 2022 023 [facility], [address] [facility], [place], [address], 05/13/2023 16:11:10 diclof enac sodium 75 mg tablet ,delay ed releas e 2022 023 [facility], [address] [facility] [place], [address], 05/13/2023 16:11:10 tramad ol 50 mg tablet 2022 023 [facility], [address] [facility], [place], [address], 03/27/2024 14:28:56 predni sone 10 mg tablet 2022 023 [email or web address] [facility] #1234, [address] [facility] [place], [address], 03/27/2024 14:28:21 Patient TargetsNo targets recorded. Patient [...] Francoise Paz, Internal Medicine, Encounter Date: 03/27/2024 Director Of Sustainability Programs Referral for Diarrhea Referring Physician: Francoise Paz, Internal Medicine, Encounter Date: 03/27/2024 Results Created Date Observation Date Name Description Value Unit Range Abnormal Flag Note LastModifiedBy Organization Detail LastModifiedTime 01/02/2012/29/2022 MRI, thora cic spine , w/o contr ast No observ ation record ed. [email or web address] [facility] (Scheduling Dept) [address] [place], [address], 05/13/2023 15:56:15 01/02/20 23 12/29/2022 MRI, thora cic spine , w/o contr ast No observ ation record ed. [email or web address] [place] [address] - Outpatient Radiology [address] [place] [address] , [place], [address], 05/13/2023 15:56:15 07/29/20 24 05/21/2024 XR, lumbo sacra l spine , 2 or 3 view No observ ation record ed. [address] , [place], [address], 07/29/2024 20:07:04 11/13/19 25 11/09/2024 MRI, lumba r spine , w/o contr ast No observ ation record ed. [email or web address] [address] [place] [address], [address], 11/12/2024 07:25:41 01/02/20 25 01/01/2025 fluor oscop y (PROC ) No observ ation record ed. [email or web address] [facility] (Medical Records) [address] [facility], [place], [address], 01/01/2025 14:23:12 03/05/20 25 03/05/2025 imagi ng/fatemeh edwards tic resul t No observ ation record ed. [facility] [address] [place], [address], 03/05/2025 13:40:28 Result Notes None recorded. Problems Name Problem SNOMED Code Status Onset Date Resolution Date Notes Provider Name and Address Organization Details Recorded Time Bilatera l carpal tunnel syndrome 01699596140 103023 Active 2018 Fortino Obregon DO [address] [place] [address], [address], [facility] 9 16:07:08 Osteoart hritis of right knee joint 66568439593 9100 Active 2021 Fortino Obregon DO [address] [place] [address], [address], [facility] 2 15:35:03 Pain of right knee joint 62276814303 4100 Active 2021 Fortino Obregon DO [address] [place] [address], [address], [facility] 2 08:42:43 Dyspnea on exertion 00035743 Active 2021 Fortino Obregon DO [address] [place] [address], [address], [facility] 2 10:37:46 Hyperkal emia 14492294 Active 2021 Fortino Obregon DO [address] [place] [address], [address], [facility] 2 13:39:57 Liver enzymes level above referenc e range 305018448 Active 2021 Fortino Obregon DO [address] [place] [address], [address], [facility] 2 09:01:34 Osteoart hritis 375967265 Active 2021 RASHMI BOLES [address] [place], [address], [facility] 2 13:45:53 Paresthe yusuf of lower extremit y 332250361 Active 2022 Fortino Obregon, DO [address] [place] [address], [address], [facility] 3 16:21:27 Lumbar radiculo rhina 696414651 Active 2022 RASHMI BOLES [address] [place] [address], [address], [facility] 3 11:34:07 Spinal stenosis of lumbar region 56817987 Active 2022 RASHMI BOLES [address] [place] [address], [address], [facility] 3 10:08:17 Hypergly cemia 76012425 Active 2022 Fortino Obregon DO [address] [place] [address], [address], [facility] 3 16:09:47 Gastroes ophageal reflux disease 370224609 Active [address] [facility] 8 09:26:44 Steatoti c liver disease 083442732 Active [address] [facility] 8 09:26:53 History of spinal fusion 83735852200 107 Active [address] [facility] 8 09:27:03 Hyperten sive disorder 11707071 Active [address] [facility] 8 09:27:07 Osteopen ia 445927052 Active 2017 Jonelle maguire [facility] 8 09:27:13 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 51022667 [facility] 09:27:53 History of hernia repair 91575166301 109 Active 2017 incarcera tripp L inguinal Jonelle Mark maguire [facility] 8 09:28:36 Allergic rhinitis 07646771 Active 2017 [facility] 8 09:28:42 Gout 20435545 Active 2023 Fortino Obregon DO [address] [place] [address], [address], [facility] 4 13:40:53 Degenera tion of lumbar interver tebral disc 26008426 Active 2023 RASHMI BOLES [address] [place] [address], [address], [facility] 4 14:43:39 Diarrhea 33289415 Active 2023 RASHMI BOLES [address] [place] [address], [address], [facility] 4 14:53:19 Edema of lower extremit y 266964269 Active 2017 Fortino Obregon DO [address] [place] [address], [address], [facility] 8 14:19:49 Problem Notes None recorded. Procedures Surgical History Date Name Laterality Status Provider Name and Address Organization Details Recorded Time 024 Colonoscopy completed Fortino Obregon DO [address] [place] [address], [address], [facility] 06/28/2024 20:54:11 022 Corticosteroid Injection completed Fortino Obregon DO [address] [place] [address], [address], [facility] 12/25/2021 15:37:16 Imaging Results None recorded. [...] propionate 50 mcg/actuati on nasal spray,suspe nsion [place] 1 spray every day by intranasa l [...] in Arterial blood by Pulse oximetry Systolic And Diastolic Provider Name and Address Organization Details Last Updated DateTime 3 173.99 cm 40 kg/m2 214885. 16 g 61 /min 98 % 98 % 185/80 mm[Hg] [facility] 3 11:07:39 Date Recorded Body height Body mass index (BMI) Body weight Heart rate Oxygen saturation Oxygen saturation in Arterial blood by Pulse oximetry Systolic And Diastolic Provider Name and Address Organization Details Last Updated DateTime 4 173.99 cm 39 kg/m2 604761. 02 g 72 /min 98 % 98 % 150/80 mm[Hg] [facility] 4 14:30:40 Date Recorded Body height Body mass index (BMI) Body weight Heart rate Oxygen saturation Oxygen saturation in Arterial blood by Pulse oximetry Systolic And Diastolic Provider Name and Address Organization Details Last Updated DateTime 3 173.99 cm 39.1 kg/m2 382336. 61 g 94 /min 96 % 96 % 159/90 mm[Hg] [facility] 3 15:32:44 Date Recorded Body height Body mass index (BMI) Body weight Heart rate Oxygen saturation Oxygen saturation in Arterial blood by Pulse oximetry Systolic And Diastolic Provider Name and Address Organization Details Last Updated DateTime 3 173.99 cm 39 kg/m2 478100. 02 g 80 /min 95 % 95 % 130/80 mm[Hg] [facility] 3 10:22:55 Date Recorded Body height Body mass index (BMI) Body weight Heart rate Oxygen saturation Oxygen saturation in Arterial blood by Pulse oximetry Systolic And Diastolic Provider Name and Address Organization Details Last Updated DateTime 4 173.99 cm 40 kg/m2 175625. 16 g 63 /min 95 % 95 % 138/70 mm[Hg] [facility] 4 10:55:45 Social History Question Answer Notes LastModified by Organizat ion Details LastModified Time Tobacco Smoking Status Never Smoker Not Available [facility] 03:36:23 What Was The Date Of Your Most Recent Tobacco Screening? 05/22/2024 [email or web address] Information not available 05/22/2024 Sex: Unknown Functional Status Question Answer Note LastModified by Organization D etails LastModified Time Do you or have you ever used any other forms of tobacco or nicotine? No [email or web address] Information not available 05/13/2023 Mental Status None [...] Details Recorded Time Tdap 01/17/2018 [facility] 07/24/2018 15:53:44 Past Encounters Encounter ID Performer Location Encounter Start Date Encounter Closed Date Diagnosis/Indication Diagnosis SNOMED-CT Code Diagnosis ICD10 Code Diagnosis Note [id number] Fortino Obregon [facility] [address] [place] [address] 11/23/2017 11:50:27 11/23/2017 12:30:17 Edema of lower extremity 326821801 R60.0 edema from amlodipine told to elevate legs and take new med and stop amlodipine [id number] Fortino Obregon DO [facility] [address] [place] [address] 01/17/2018 14:03:07 01/17/2018 15:31:23 Hypertensive disorder 27211784 I10 doing great at this point Edema of l ower extremity 515088937 R60.0 edema from amlodipine told to elevate legs and take new med and stop amlodipine 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 83306158 M51.34 Active or passive immunization 382466106 Z23 tdap at pharmacy Laceration of finger 274 595367 S61.219A steri strip closure and sterile dressings [id number] Fortino Obregon [facility] [address] [place] [address] 07/24/2018 15:19:25 07/24/2018 16:03:58 Hypertensive disorder 61026024 I10 ok right here but has been consistent ly elevated at home is starting to get headaches also has been noting episodes of lightheade dness and spacey feeling he does have dm in the family will give him a glucometer to check his sugars and he hansel check bp and will have him follow closely Tick bite 70515682 W57.X XXA prob lyme disease [id number] Fortino Obregon [facility] [address] [facility] [address] 07/31/2018 15:32:57 07/31/2018 16:45:36 Hypertensive disorder 23898553 I10 ok right here but has been [...] with more lab when approp Allergic rhinitis 842720 04 J30.9 quiet [id number] Fortino Luca Obregon [facility] [address] [facility],[place] [address] [facility] [place] [address] 03/23/2019 15:40:37 03/23/2019 16:15:59 Hypertensive disorder 33773749 I10 ok right here but has been [...] it was 98 Bilateral carpal tunnel syndrome 8386603319 2541260 G56.03 needs a referral to surgeon Incontinence of feces 72 188053 R15.9 [id number] Fortino Obregon [facility] [address] [facility],[place] [address] 06/15/2019 13:30:22 06/15/2019 15:15:47 Liver enzymes level above reference range 472758006 R74.8 will repeat test no risk factors and is assoc with the fatty liver Steatotic liver disease 339582655 K76.0 will cont to lose wgt and we will follow with more lab when approp Hypertensive disorder 38 478635 I10 ok right here but has been consistent ly elevated at home still bp is decent here in office using non automated cuff he hansel check bp and will have him follow closely stopped the hctz as he has been getting too light headed and he has felt much better since eating keto and cont losing wgt >15lbs [id number] Fortino Obregon [facility] [address] [facility] [address] [address] 06/22/2019 15:46:24 06/22/2019 16:37:52 Hypertensive disorder 29259427 I10 no longer on bp meds as of 2-3 months ago due to possible drug side effect states needs to lose weight bp was higher at other offices supposed to be monitoring BP at home = will give guidelines to call for BP persistent ly elevated above 140/90 Gastroesop hageal reflux disease 944455263 K21.9 asx 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 01693491 M51.34 on meloxicam Tick bite without infection 211304046 T14.8XXD monitor for signs of infection/ bullseye appears to be healing well at this time [id number] Fortino Obregon [facility] [address] [facility] [address] 07/16/2019 08:57:33 07/16/2019 10:06:09 Essential hypertension 27906981 I10 Low back pain 392995991 M54.5 meloxicam not really helpful hansel try diclofenac bid prn considerin g PT - will call Gastroesop hageal reflux disease 711561469 K21.9 asx [id number] Fortino Obregon DO [facility] [address] [facility] [address] [address] 11/16/2019 09:49:23 11/16/2019 10:20:00 Benign paroxysmal positional vertigo 999031309 H81.10 Fever 370041473 R50.9 now resolved working dx is a virus with URI causing a vertigo rxn no sob sl cough afeb now [id number] Fortino Obregon [facility] [address] [facility] [address] [address] 11/25/2020 14:48:58 11/25/2020 15:51:09 Hypertensive disorder 90806259 I10 ok right here but has been consistent ly elevated at home still bp is decent here in office using non automated cuff he hansel check bp and will have him follow closely stopped the hctz as he has been getting too light headed and he has felt much better since eating keto and cont losing wgt >15lbs Gastroesop hageal reflux disease 385711998 K21.9 no change in tx Edema of l ower extremity 934555585 R60.0 edema from amlodipine told to elevate legs and take new med and stop amlodipine Dyspnea on exertion 6084 5006 R06.09 worrisome this is cardiac and we need to hopefully prove this is deconditio jayesh only Sleep apnea 92351027 G47 .30 [id number] Fortino Obregon [facility] [address] [facility] [address] [facility] [place] [address] 08/25/2021 08:51:34 08/26/2021 13:42:49 Essential hypertension 58525028 I10 stable Low back pain 038092206 M54.59 stable on medication takes PRN with food per instructio nsavoid use with alcohol and other NSAIDs Multiple b enign melanocytic nevi 350745645 D22.5 refer to [facility] for eval and biopsy Gastroesop hageal reflux disease 118568171 K21.9 stable [id number] Fortino Obregon [facility] [address] [facility] [address] 11/18/2021 09:18:00 11/18/2021 14:30:40 Anterior knee pain 342193774 M25.561 will fu with XRhistory of right knee arthoscopy Infection of tick bite 197477111 W57.XXXA will start on abx and fu with lyme panel [id number] Fortino Obregon [facility] [address] [facility] [address] [facility] [place] [address] 12/25/2021 14:55:02 12/28/2021 11:48:02 Hypertensive disorder 88965253 I10 ok right here but has been [...] best Osteoarthr itis of right knee joint 7486646689 33714 M17.11 saul inj well toerated [id number] Fortino Obregon [facility] [address] [facility] [facility] [place] [place] [address] 05/11/2022 09:57:07 05/11/2022 10:46:52 Active or passive immunization 859010757 Z23 tdap at pharmacy Adult heal th examination 967967557 Z00.01 pt has gained more weight has become more deconditio kevin more sobdaytime somnolence he is not wearing cpap says he does not tolerate has evid of cts bilat L>Rhas noted djd changes in hands and kneesright knee with noted effusion Dyspnea on exertion 6084 5006 R06.09 worrisome this is cardiac and we need to hopefully prove this is deconditio jayesh only [id number] Fortino Obregon [facility] [address] [facility] [address] 12/08/2022 11:00:10 12/08/2022 12:03:20 Lumbar radiculopathy 480805456 M54.16 agreed to MRI lumbar and thoracicst art tramadol and prednisone can use diclofenac 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 60953897 M51.34 will fu with patient after MRIs [id number] Fortino Obregon [facility] [address] [facility] [address] 05/13/2023 15:27:13 05/13/2023 16:27:19 Gastroesophageal reflux disease 554694052 K21.9 no change in tx Spinal kali nosis of lumbar region 23150919 M48.062 needs to lose the wgt as well Bilateral carpal tunnel syndrome 8585481078 9740977 G56.03 needs a referral to surgeon when ready but NCT is not since before 2018 Low back pain 208938901 M54.50 Hyperglycemia 87206353 R 73.9 [id number] Fortino Obregon [facility] [address] [facility],[place] [address] 05/17/2023 10:17:49 05/17/2023 11:24:26 Active or passive immunization 063235849 Z23 tdap at pharmacy Adult heal th examination 488950751 Z00.00 pt has gained more weight has become more deconditio kevin more sobdaytime somnolence he is not wearing cpap says he does not tolerate has evid of cts bilat L>Rhas noted djd changes in hands and kneesright knee with noted effusion 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 25923165 M51.34 Dyspnea on exertion 6084 5006 R06.09 worrisome this is cardiac and we need to hopefully prove this is deconditio jayesh only Hyperglycemia 80873964 R 73.9 we will rech a1c in 2 months Hyperkalemia 97808819 E8 7.5 Hypertensive disorder 38 548758 I10 ok right here but has been [...] him on losartan which worked the best [id number] Fortino Obregon [facility] [address] [facility] [place] [address] 03/27/2024 14:18:11 03/27/2024 16:40:14 Degeneration of lumbar intervertebral disc 87907912 M51.36 would like a second Screening for malignant neoplasm of colon 558368418 Z12.11 agreed to colonoscop y Diarrhea 59981905 A07.8 will set up with GI for fu colonoscop y [id number] Fortino Obregon [facility] [address] [facility] [address] [place] [address] 05/22/2024 10:49:58 05/22/2024 11:39:49 Hypertensive disorder 96986503 I10 ok right here but has been [...] best 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 95183446 M51.34 Lumbar radiculopathy 128 819727 M54.16 awaiting Normal reply Adult heal th examination 054907665 Z00.00 still struggling with the backwill need to get fbw Health Concerns Section Related Observation LastModified by Organization Detai ls LastModified Time None Recorded Concern Status LastModified by Organization Details LastModified Time None Recorded Advance Directives Directive None Recorded Payers Insurance Date Sequence Insurance Name Policy Number Policy Cedeno Covered Member ID Cedeno Member ID Guarantor Name 12/17/2024 1 [employer] [facility] (PPO) [id number] Remy Hernández [id number] Remy Hernández 06/09/2022 1 UNSPECIFIED PRISCILLA [...] discomfort in the meantime RASHMI BOLES [address] [place], [address], [facility] 12/08/2022 11:52:10 3 text/html here for valorie and is doing the same Fortino Obregon DO [address] [place], [address], [facility] 05/13/2023 16:12:19 3 [...] Vision:no vision problems Fortino Obregon DO [address] [place], [address], [facility] 05/17/2023 10:55:07 4 text/html f/o lumbar spine pain the patient is doing okaystill having a lot of back pain, lumbar spine painh/x of fusion L5-S1 about 17 years agorecently had another surgery with Dr. Lara out of [facility] for the other levels of [...] with patient GI referral RASHMI BOLES [address] [place], [address], [facility] 03/27/2024 15:03:31 4 text/html here for cpebiggest issue is his back still waiting on culbertson to respondseen by dr glez office Fortino Obregon DO [address] [place], [address], [facility] 05/22/2024 11:24:35
== END 2025-03-05 14:25 | disposition home or self-care (01) ==
LOC: HO.HNS 13:13
PROVIDERS: PCP Internal Medicine; Visit Provider Physician Assistant
DX: Z98.1 Arthrodesis status (principal)
CPT/HCPCS: 99024

== ENCOUNTER 2025-03-05 13:13 | Outpatient (REF) | payer OTHER, SELFPAY ==
--- NOTE | ~2025-03-05 | XR_ITS ---
EXAMINATION: X-ray lumbar spine. CLINICAL INFORMATION: Dorsalgia, unspecified. TECHNIQUE: AP and lateral views. Lateral views during flexion and extension position. COMPARISON: May 21, 2024. FINDINGS: Transpedicular screws bilaterally at L4 and L5. Intervertebral disc spacer at L4-5. Radiopaque material at L5-S1. Multilevel marginal osteophyte formation and endplate sclerosis and decreased intervertebral disc height lower thoracic and lumbar spine. No acute cortical disruption or gross malalignment. No gross malalignment during flexion and or extension position. No lytic or blastic lesions. XR/XR lumbar spine 4V min IMPRESSION: No gross instability. Status post posterior L4-5 fusion and intervertebral disc spacers/arthrodesis L4-5 and L5-S1. Electronically signed by: Hal Murphy MD 03/05/2025 01:35 PM EDT
== END 2025-03-05 13:14 | disposition home or self-care (01) ==
LOC: HO.HOSX 13:13
PROVIDERS: PCP Internal Medicine; Visit Provider Physician Assistant
DX: M54.9 Dorsalgia, unspecified (principal); Z98.1 Arthrodesis status
CPT/HCPCS: 72110

== ENCOUNTER → 2025-03-05 13:24 | Outpatient (BNV) | payer OTHER, SELFPAY | PROVIDERS: PCP Internal Medicine; Visit Provider Radiology Diagnostic Radiology | DX: M51.369 Other intervertebral disc degeneration, lumbar region without mention of lumbar back pain or lower extremity pain (principal) | CPT/HCPCS: 72110 ==

== ENCOUNTER 2025-03-10 08:14 | Outpatient (REF) | payer OTHER, SELFPAY ==
--- NOTE | ~2025-03-10 | MR_ITS ---
CLINICAL HISTORY: Z98.1 - Arthrodesis status MR of the lumbar spine without contrast Comparison: DX/SR - XR LUMBAR SPINE 4 OR MORE VIEWS - 03/05/25 13:24 EDT MR/SR - MR LUMBAR SPINE WITHOUT IV CONTRAST - 11/09/24 13:49 EDT DX/SR - XR LUMBAR SPINE 4 OR MORE VIEWS - 05/21/24 13:36 EDT Findings: Normal alignment. Status post posterior fusion and interbody disc spacer at L4/L5, new since 11/09/24. Interbody disc spacer at L5/S1, unchanged. Modic type 2 change of the inferior endplate of L2. Metallic artifact limits evaluation of the bone marrow signal at L4/L5. No cord expansion or abnormal signal intensity. The conus medullaris terminates at L1, which is normal. The cauda equina is unremarkable. Postsurgical change in the subcutaneous fat at L4/L5 level. Mild muscular atrophy. L1/L2: No disc herniation. No facet joint or ligamentum flavum hypertrophy. No central canal stenosis. No lateral recess stenosis. No foraminal stenosis. L2/L3: 4 mm broad-based disc bulge. Mild facet joint and ligamentum flavum hypertrophy. Mild central canal stenosis. Mild right and moderate left lateral recess stenosis. No foraminal stenosis. L3/L4: 5 mm broad-based disc bulge. Moderate facet joint and ligamentum flavum hypertrophy. Mild central canal stenosis. Moderate bilateral lateral recess stenosis. No foraminal stenosis. L4/L5: Status post discectomy with an interbody disc spacer, new. Granulation tissue versus recurrent disc protrusion measuring up to 4 mm, previously measuring up to 7 mm. Moderate facet joint and ligamentum flavum hypertrophy. [id number] central canal stenosis, previously moderate to severe. Moderate bilateral lateral recess stenosis. No foraminal stenosis. L5/S1: Status post discectomy with an interbody disc spacer. Moderate facet joint and ligamentum flavum hypertrophy. No central canal stenosis. Mild bilateral lateral recess stenosis. No foraminal stenosis. Impression: No acute findings. Multilevel degenerative change, detailed above. Interval discectomy with interbody disc spacer and posterior fusion at L4/L5 with improvement in central canal stenosis, currently [id number]. This document has been electronically signed by: Bobbi Keene MD on 03/12/2025 17:44:41
--- OUTSIDE RECORDS SUMMARY | 2025-03-10 08:16 | XMS_ITS | Encounter Summary ---
Author Organization [facility] Address [address] [place] [phone] Phone Care Team Providers Care Bean Sprout Grower Name Role Phone Fortino Whitt DO Primary Care Provider [phone] Encounter Details Date Type Department Care Team (Late st Contact Info) Description 12/02/2020 Procedure Pass [facility] [place] [place] [address] Social History Tobacco Use Types Packs/Day Years Used Date Smoking Tobacco: Never Smokeless Tobacco: Never Alcohol Use Standard Drinks/Week Comments Yes 2 (1 standard drink = 0.6 oz pur e alcohol) Sex and Gender Information Value Date Recorded Sex Assigned at Not on file Legal Sex Male 9:47 PM EDT Gender Identity Not on file Sexual Orientation Not on file documented as of this encounter Plan of Treatment Not on file documented as of this encounter Visit Diagnoses Not on filedocumented in this encounter Care Teams Bean Sprout Grower Relationship Specialty Start Date End Date Fortino Whitt DO PCP - General Internal Medicine 07/26/17 documented as of this encounter Additional Source Comments The information contained in this document represents components of the legal health record. It is not the complete legal health record.[facility]
--- OUTSIDE RECORDS SUMMARY | 2025-03-10 08:17 | XMS_ITS | Data Portability ---
Author Organization [facility], Telehealth Patient Home Address [address] [place] [address] Assessment Encounter Date Assessment Date Assessment LastModified by Organization Details LastModified Time 05/13/2023 05/13/2023 [address] [place] [address] (FLUID PUMP OPERATOR) MDM MODERATE MUST MEET 2 OUT OF [...] Go To The Location Of Their Choice, [address] 05/30/2024 04:21:32 CBC w/ auto diff 2023 MOY [facility] (Centralized Electronic Ordering - All Locations), Patient Can Go To The Location Of Their Choice, [address] 05/30/2024 04:21:32 PSA, serum or plasma 2023 024 [facility] (Centralized Electronic Ordering - All Locations), Patient Can Go To The Location Of Their Choice, [address] 05/30/2024 04:21:32 lipid panel, blood 2023 024 [facility] (Centralized Electronic Ordering - All Locations), Patient Can Go To The Location Of Their Choice, [address] 05/30/2024 04:21:32 vitami n D, 25-hyd stacey, total, serum 2023 024 MO[facility] (Centralized Electronic Ordering - All Locations), Patient Can Go To The Location Of Their Choice, [address] 05/30/2024 04:21:31 HbA1c (hemog lobin A1c), blood 2022 023 [facility], [address] [place] [address], [place], [address], 05/17/2023 10:55:25 HbA1c (hemog lobin A1c), blood 2022 023 [facility], [place], [address], 05/16/2023 12:47:20 Referral gastro entero logist referr al 2023 024 [facility] , [address] [place] [address], [address], 03/30/2024 09:50:18 orthop edic surgeo n referr al 2023 024 [email or web address] 10 Macario Glez MD, [address] [place] [address], [address], 05/02/2024 08:25:18 orthop edic surgeo n referr al 2022 023 [email or web address] 10 [facility] (Damian Ybarra), [address] [place], [address], 12/10/2022 08:53:51 Procedures None record ed. Surgeries None record ed. Imaging MRI, lumbar spine, w/o contra st - Call Refere nce #: Rajat Nickerson 2022 Resolu tion: Piyush tripp on 2022 at 11:10 am. Call ref #Rajat Nickerson 2022. 2022 023 [email or web address] 10 Not available 12/13/2022 08:33:18 MRI, thorac ic spine, w/o contra st - Call Refere nce #: Eltontylor [email or web address] Resolu tion: Piyush tripp on 2022 at 10:16 am. Call ref #Levy [id number] 123. 2022 023 [email or web address] Not available 12/13/2022 08:35:30 Medication Orders predni sone 10 mg tablet 2023 024 [facility]1234, [address] [place], [address], 05/22/2024 11:18:37 pregab brendan 75 mg capsul e 2022 023 [facility], [address] [facility], [place], [address], 05/13/2023 16:11:10 diclof enac sodium 75 mg tablet ,delay ed releas e 2022 023 [facility], [address] [place], [address], 05/13/2023 16:11:10 tramad ol 50 mg tablet 2022 023 [email or web address] [facility], [address] [facility], [place], [address], 03/27/2024 14:28:56 predni sone 10 mg tablet 2022 023 [email or web address] [facility] #1234, [address] [place], [address], 03/27/2024 14:28:21 Patient TargetsNo targets recorded. Patient [...] Francoise Paz, Internal Medicine, Encounter Date: 03/27/2024 Silver Solderer Referral for Diarrhea Referring Physician: Francoise Paz, Internal Medicine, Encounter Date: 03/27/2024 Results Created Date Observation Date Name Description Value Unit Range Abnormal Flag Note LastModifiedBy Organization Detail LastModifiedTime 01/02/2012/29/2022 MRI, thora cic spine , w/o contr ast No observ ation record ed. [email or web address] [facility] (Scheduling Dept) [address] [place], [address], 05/13/2023 15:56:15 01/02/20 23 12/29/2022 MRI, thora cic spine , w/o contr ast No observ ation record ed. [email or web address] [place] [address] - Outpatient Radiology [address] [place] [address] , [place] [place], [address], 05/13/2023 15:56:15 07/29/20 24 05/21/2024 XR, lumbo sacra l spine , 2 or 3 view No observ ation record ed. [address] , [place], [address], 07/29/2024 20:07:04 11/13/19 25 11/09/2024 MRI, lumba r spine , w/o contr ast No observ ation record ed. [email or web address] [address] [place] [address], [address], 11/12/2024 07:25:41 01/02/20 25 01/01/2025 fluor oscop y (PROC ) No observ ation record ed. [email or web address] [facility] (Medical Records) [address] [facility], [place], [address], 01/01/2025 14:23:12 03/05/20 25 03/05/2025 XR, lumba r spine No observ ation record ed. [email or web address] [address] [place], [address], 03/05/2025 14:46:58 Result Notes None recorded. Problems Name Problem SNOMED Code Status Onset Date Resolution Date Notes Provider Name and Address Organization Details Recorded Time Gastroes ophageal reflux disease 332100835 Active 2017 [facility] 8 09:26:44 Steatoti c liver disease 772854228 Active 2017 Jonelle maguire [facility] 8 09:26:53 History of spinal fusion 47440031110 107 Active 2017 Jonelle maguire [facility] 8 09:27:03 Hyperten sive disorder 47261496 Active 2017 Jonelle maguire [facility] 8 09:27:07 Osteopen ia 966516419 Active 2017 Jonelle maguire [facility] 8 09:27:13 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 87235409 Active 2017 [facility] 8 09:27:53 History of hernia repair 79188665993 109 Active 2017 incarcera tripp L inguinal [facility] 8 09:28:36 Allergic rhinitis 85402265 Active 2017 [facility] 8 09:28:42 Edema of lower extremit y 506645841 Active 2017 Fortino Obregon, DO [address] [place], [address], [facility] 8 14:19:49 Bilatera l carpal tunnel syndrome 57024771783 023243 Active 2018 Fortino Obregon DO [address] [place] [address], [address], [facility] 9 16:07:08 Osteoart hritis of right knee joint 83861069245 9100 Active 2021 Fortino Obregon DO [address] [place] [address], [address], [facility] 2 15:35:03 Pain of right knee joint 06473184557 4100 Active 2021 Fortino Obregon DO [address] [place] [address], [address], [facility] 2 08:42:43 Dyspnea on exertion 13366711 Active 2021 Fortino Obregon DO [address] [place] [address], [address], [facility] 2 10:37:46 Hyperkal emia 83721006 Active 2021 Fortino Obregon [address], [address], [facility] 2 13:39:57 Liver enzymes level above referenc e range 393982566 Active 2021 Fortino Obregon DO [address] [place] [address], [address], [facility] 2 09:01:34 Osteoart hritis 064109726 Active 2021 RASHMI BOLES [address] [place] [address], [address], [facility] 2 13:45:53 Paresthe yusuf of lower extremit y 834904401 Active 2022 Fortino Obregon [address], [address], [facility] 3 16:21:27 Lumbar radiculo rhina 889802273 Active 2022 RASHMI BOLES [address] [place] [address], [address], [facility] 3 11:34:07 Spinal stenosis of lumbar region 64580518 Active 2022 RASHMI BOLES [address] [place] [address], [address], [facility] Internal [facility] 3 10:08:17 Hypergly cemia 36813358 Active 2022 Fortino Obregon DO [address] [place] [address], [address], [facility] 3 16:09:47 Gout 30555264 Active 2023 Fortino Obregon DO [address] [place] [address], [address], [facility] 4 13:40:53 Degenera tion of lumbar interver tebral disc 09604732 Active 2023 RASHMI BOLES [address] [place] [address], [address], [facility] 4 14:43:39 Diarrhea 48504189 Active 2023 RASHMI BOLES [address] [place] [address], [address], [facility] 4 14:53:19 Problem Notes None recorded. Procedures Surgical History Date Name Laterality Status Provider Name and Address Organization Details Recorded Time 024 Colonoscopy completed Fortino Obregon DO [address] [place] [address], [address], [facility] Internal [facility] 06/28/2024 20:54:11 022 Corticosteroid Injection completed Fortino Obregon DO [address] [place] [address], [address], [facility] 12/25/2021 15:37:16 Imaging Results None recorded. Procedure [...] propionate 50 mcg/actuati on nasal spray,suspe nsion [place] 1 spray every day by intranasa l [...] Updated DateTime 3 173.99 cm 40 kg/m2 028113. 16 g 61 /min 98 % 98 % 185/80 mm[Hg] [facility] 3 11:07:39 Date Recorded Body height Body mass index (BMI) Body weight Heart rate Oxygen saturation Oxygen saturation in Arterial blood by Pulse oximetry Systolic And Diastolic Provider Name and Address Organization Details Last Updated DateTime 4 173.99 cm 39 kg/m2 099266. 02 g 72 /min 98 % 98 % 150/80 mm[Hg] [facility] 4 14:30:40 Date Recorded Body height Body mass index (BMI) Body weight Heart rate Oxygen saturation Oxygen saturation in Arterial blood by Pulse oximetry Systolic And Diastolic Provider Name and Address Organization Details Last Updated DateTime 3 173.99 cm 39.1 kg/m2 707338. 61 g 94 /min 96 % 96 % 159/90 mm[Hg] [facility] 3 15:32:44 Date Recorded Body height Body mass index (BMI) Body weight Heart rate Oxygen saturation Oxygen saturation in Arterial blood by Pulse oximetry Systolic And Diastolic Provider Name and Address Organization Details Last Updated DateTime 3 173.99 cm 39 kg/m2 727250. 02 g 80 /min 95 % 95 % 130/80 mm[Hg] [facility] 3 10:22:55 Date Recorded Body height Body mass index (BMI) Body weight Heart rate Oxygen saturation Oxygen saturation in Arterial blood by Pulse oximetry Systolic And Diastolic Provider Name and Address Organization Details Last Updated DateTime 4 173.99 cm 40 kg/m2 623843. 16 g 63 /min 95 % 95 % 138/70 mm[Hg] [facility] 4 10:55:45 Social History Question Answer Notes LastModified by Organizat ion Details LastModified Time Tobacco Smoking Status Never Smoker Not Available [facility] 06/24/2020 03:36:23 What Was The Date Of Your Most Recent Tobacco Screening? 05/22/2024 [email or web address] Information not available 05/22/2024 Sex: Unknown Functional Status Question Answer Note LastModified by Organization D etails LastModified Time Do you or have you ever used any other forms of tobacco or nicotine? No [email or web address] Information not available 05/13/2023 Mental Status None recorded. Family History Nothing Reported. Medical History Condition Response Coronary Artery Disease N Blood Diseases N Blood Transfusion N COPD N Depression N Anxiety Disorder N Obesity N Infertility N Polyps N Mental Disorder N Stroke N Varicosities N Fibromyalgia N Kidney Disease N Hospitalizations N Skin Problems N Eating Disorder N MRSA exposure N Constipation N Tuberculosis N Asthma N Pulmonary Embolism N Chicken Pox N Lung Disease N Defects or Inherited Disease N Endometriosis N Liver Disease N Thyroid Problems N GI Problems N Anemia N Diabetes N Congestive Heart Failure (CHF) N Abuse/Domestic Violence N Reflux/GERD N Heart Disease N Hypertension N Other N Gout N Kidney Stones N Muscle, Joint, or Bone Problems N Vision or Eye Problems N Arthritis N Cancer N Headaches N Heart Problems N Hepatitis N Autism Spectrum Disorder (ASD) N Breast Cancer N Bladder or Kidney Problems N High Cholesterol N Allergies/Hayfever N Mental Illness N Ovarian Cancer N Seizures/Epilepsy N Eczema N Diverticulitis N Osteoporosis N Immunizations Vaccine Type Date Status Note Provider Nam e and Address Organization Details Recorded Time Tdap 01/17/2018 [facility] 07/24/2018 15:53:44 Past Encounters Encounter ID Performer Location Encounter Start Date Encounter Closed Date Diagnosis/Indication Diagnosis SNOMED-CT Code Diagnosis ICD10 Code Diagnosis Note [id number] Fortino Obregon [facility] [address] [place] [address] 11/23/2017 11:50:27 11/23/2017 12:30:17 Edema of lower extremity 472856331 R60.0 edema from amlodipine told to elevate legs and take new med and stop amlodipine [id number] Fortino Obregon DO [facility] [address] [place] [address] 01/17/2018 14:03:07 01/17/2018 15:31:23 Hypertensive disorder 32482479 I10 doing great at this point Edema of l ower extremity 420805054 R60.0 edema from amlodipine told to elevate legs and take new med and stop amlodipine 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 54353273 M51.34 Active or passive immunization 584998325 Z23 tdap at pharmacy Laceration of finger 274 678015 S61.219A steri strip closure and sterile dressings [id number] Fortino Obregon DO [facility] [address] [place] [address] 07/24/2018 15:19:25 07/24/2018 16:03:58 Hypertensive disorder 70649067 I10 ok right here but has been consistent ly elevated at home is starting to get headaches also has been noting episodes of lightheade dness and spacey feeling he does have dm in the family will give him a glucometer to check his sugars and he hansel check bp and will have him follow closely Tick bite 63679879 W57.X XXA prob lyme disease [id number] Fortino Luca Peri [facility] [address] [facility],[place] [address] 07/31/2018 15:32:57 07/31/2018 16:45:36 Hypertensive disorder 43359032 I10 ok right here but has been [...] with more lab when approp Allergic rhinitis 352205 04 J30.9 quiet [id number] Fortino Segovia Peri [facility] [address] [facility],[place] [address] 03/23/2019 15:40:37 03/23/2019 16:15:59 Hypertensive disorder 79487499 I10 ok right here but has been [...] it was 98 Bilateral carpal tunnel syndrome 1612601141 1737066 G56.03 needs a referral to surgeon Incontinence of feces 72 469215 R15.9 [id number] Fortino YeungHilary Obregon [facility] [address] [facility],[place] [address] 06/15/2019 13:30:22 06/15/2019 15:15:47 Liver enzymes level above reference range 983331311 R74.8 will repeat test no risk factors and is assoc with the fatty liver Steatotic liver disease 928890761 K76.0 will cont to lose wgt and we will follow with more lab when approp Hypertensive disorder 38 724221 I10 ok right here but has been consistent ly elevated at home still bp is decent here in office using non automated cuff he hansel check bp and will have him follow closely stopped the hctz as he has been getting too light headed and he has felt much better since eating keto and cont losing wgt >15lbs [id number] Fortino Obregon [facility] [address] [facility],[place] [address] 06/22/2019 15:46:24 06/22/2019 16:37:52 Hypertensive disorder 30965028 I10 no longer on bp meds as of 2-3 months ago due to possible drug side effect states needs to lose weight bp was higher at other offices supposed to be monitoring BP at home = will give guidelines to call for BP persistent ly elevated above 140/90 Gastroesop hageal reflux disease 747996277 K21.9 asx 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 41301047 M51.34 on meloxicam Tick bite without infection 886052276 T14.8XXD monitor for signs of infection/ bullseye appears to be healing well at this time [id number] Fortino Obregon DO [facility] [address] [facility] [address] 07/16/2019 08:57:33 07/16/2019 10:06:09 Essential hypertension 59892210 I10 Low back pain 574141562 M54.5 meloxicam not really helpful hansel try diclofenac bid prn considerin g PT - will call Gastroesop hageal reflux disease 351684074 K21.9 asx [id number] Fortino Obregon DO [facility] [address] [facility] [address] [address] 11/16/2019 09:49:23 11/16/2019 10:20:00 Benign paroxysmal positional vertigo 317421883 H81.10 Fever 413017230 R50.9 now resolved working dx is a virus with URI causing a vertigo rxn no sob sl cough afeb now [id number] Fortino Obregon [facility] [address] [facility] [address] [address] 11/25/2020 14:48:58 11/25/2020 15:51:09 Hypertensive disorder 65874055 I10 ok right here but has been consistent ly elevated at home still bp is decent here in office using non automated cuff he hansel check bp and will have him follow closely stopped the hctz as he has been getting too light headed and he has felt much better since eating keto and cont losing wgt >15lbs Gastroesop hageal reflux disease 534778763 K21.9 no change in tx Edema of l ower extremity 019595159 R60.0 edema from amlodipine told to elevate legs and take new med and stop amlodipine Dyspnea on exertion 6084 5006 R06.09 worrisome this is cardiac and we need to hopefully prove this is deconditio jayesh only Sleep apnea 34901709 G47 .30 [id number] Fortino Obregon [facility] [address] [facility], [place] [address] 08/25/2021 08:51:34 08/26/2021 13:42:49 Essential hypertension 41229739 I10 stable Low back pain 889424359 M54.59 stable on medication takes PRN with food per instructio nsavoid use with alcohol and other NSAIDs Multiple b enign melanocytic nevi 828692781 D22.5 refer to [facility] for eval and biopsy Gastroesop hageal reflux disease 588016820 K21.9 stable [id number] Fortino Obregon [facility] [address] [facility], [place] [address] 11/18/2021 09:18:00 11/18/2021 14:30:40 Anterior knee pain 609450368 M25.561 will fu with XRhistory of right knee arthoscopy Infection of tick bite 372513545 W57.XXXA will start on abx and fu with lyme panel [id number] Fortino Obregon DO [facility] [address] [facility] [address], [place] [address] 12/25/2021 14:55:02 12/28/2021 11:48:02 Hypertensive disorder 34864542 I10 ok right here but has been [...] best Osteoarthr itis of right knee joint 4131633066 63785 M17.11 saul inj well toerated [id number] Fortino Obregon [facility] [address] [facility] [address] 05/11/2022 09:57:07 05/11/2022 10:46:52 Active or passive immunization 735763316 Z23 tdap at pharmacy Adult [facility] th examination 264967686 Z00.01 pt has gained more weight has become more deconditio kevin more sobdaytime somnolence he is not wearing cpap says he does not tolerate has evid of cts bilat L>Rhas noted djd changes in hands and kneesright knee with noted effusion Dyspnea on exertion 6084 5006 R06.09 worrisome this is cardiac and we need to hopefully prove this is deconditio jayesh only [id number] Fortino Obregon [facility] [address] [facility] [address] 12/08/2022 11:00:10 12/08/2022 12:03:20 Lumbar radiculopathy 899898575 M54.16 agreed to MRI lumbar and thoracicst art tramadol and prednisone can use diclofenac 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 62569091 M51.34 will fu with patient after MRIs [id number] Fortino Obregon [facility] [address] [facility] [address] 05/13/2023 15:27:13 05/13/2023 16:27:19 Gastroesophageal reflux disease 867644630 K21.9 no change in tx Spinal kali nosis of lumbar region 17417515 M48.062 needs to lose the wgt as well Bilateral carpal tunnel syndrome 8581303997 5756873 G56.03 needs a referral to surgeon when ready but NCT is not since before 2018 Low back pain 099017760 M54.50 Hyperglycemia 76101361 R 73.9 [id number] Fortino Obregon [facility] [address] [facility], [place] [address] 05/17/2023 10:17:49 05/17/2023 11:24:26 Active or passive immunization 649528386 Z23 tdap at pharmacy Adult heal th examination 402396751 Z00.00 pt has gained more weight has become more deconditio kevin more sobdaytime somnolence he is not wearing cpap says he does not tolerate has evid of cts bilat L>Rhas noted djd changes in hands and kneesright knee with noted effusion 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 61701391 M51.34 Dyspnea on exertion 6084 5006 R06.09 worrisome this is cardiac and we need to hopefully prove this is deconditio jayesh only Hyperglycemia 84717780 R 73.9 we will rech a1c in 2 months Hyperkalemia 42592376 E8 7.5 Hypertensive disorder 38 167660 I10 ok right here but has been [...] him on losartan which worked the best [id number] Fortino Obregon [facility] [address] [facility], [place] [address] 03/27/2024 14:18:11 03/27/2024 16:40:14 Degeneration of lumbar intervertebral disc 47011892 M51.36 would like a second Screening for malignant neoplasm of colon 855115624 Z12.11 agreed to colonoscop y Diarrhea 96472324 A07.8 will set up with GI for fu colonoscop y [id number] Fortino Obregon [facility] [address] [facility] [address] [address] 05/22/2024 10:49:58 05/22/2024 11:39:49 Hypertensive disorder 21248181 I10 ok right here but has been [...] best 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 75173103 M51.34 Lumbar radiculopathy 128 198093 M54.16 awaiting Foristell reply Adult heal th examination 457165612 Z00.00 still struggling with the backwill need to get fbw Health Concerns Section Related Observation LastModified by Organization Detai ls LastModified Time None Recorded Concern Status LastModified by Organization Details LastModified Time None Recorded Advance Directives Directive None Recorded Payers Insurance Date Sequence Insurance Name Policy Number Policy Cedeno Covered Member ID Cedeno Member ID Guarantor Name 12/17/2024 1 [employer] [facility] (PPO) [id number] Remy Hernández [id number] Remy Hernández 06/09/2022 1 UNSPECIFIED PRISCILLA [...] discomfort in the meantime RASHMI BOLES [address] [place], [address], [facility] 12/08/2022 11:52:10 3 text/html here for rechk and is doing the same Fortino Obregon DO [address] [place], [address], [facility] 05/13/2023 16:12:19 3 [...] Vision:no vision problems Fortino Obregon DO [address] [place], [address], [facility] 05/17/2023 10:55:07 4 text/html f/o lumbar spine pain the patient is doing okaystill having a lot of back pain, lumbar spine painh/x of fusion L5-S1 about 17 years agorecently had another surgery with Dr. Lara out of [facility] for the other levels of his lumbar [...] with patient GI referral RASHMI BOLES [address] [place], [address], [facility] 03/27/2024 15:03:31 4 text/html here for cpebiggest issue is his back [facility] office Fortino Obregon DO [address] [place], [address], [facility] Internal [facility] 05/22/2024 11:24:35
== END 2025-03-10 08:15 | disposition home or self-care (01) ==
LOC: HO.MRI 08:14
PROVIDERS: Visit Provider Physician Assistant
DX: Z98.1 Arthrodesis status (principal)
CPT/HCPCS: 72148

== ENCOUNTER → 2025-03-10 08:17 | Outpatient (BNV) | payer OTHER, SELFPAY | PROVIDERS: Visit Provider Radiology Diagnostic Radiology | DX: M48.061 Spinal stenosis, lumbar region without neurogenic claudication (principal) | CPT/HCPCS: 72148 ==

== ENCOUNTER 2025-05-29 07:42 | Outpatient (REF) | payer OTHER, SELFPAY ==
--- OUTSIDE RECORDS SUMMARY | 2008-03-25 | XMS_ITS | Encounter Summary ---
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 Not on susy e 12/16/2022 Are you concerned about learning? Not on file 12/16/2022 No 12/16/2022 No 12/16/2022 Digital Access Answer Date Recorded No 01/17/2023 No 01/17/2023 Reliable internet access at home? Not on file 01/17/2023 Device with a working camera? Not on file Intimate Partner Violence Answer Date R ecorded Denied Basic Needs Not on file 06/28/2024 In the past 12 months have y ou been in a relationship with a person who hurts, threatens, or tries to control you? No 06/28/2024 Worried food would run out Not on file 06/28 In the past 12 months have y ou been in a relationship with a person who hurts, threatens, or tries to control you? No 06/28/2024 Sex and Gender Information Value Date Recorded Sex Assigned at Not on file Legal Sex Male 9:47 PM EDT Gender Identity Not on file Sexual Orientation Not on file documented as of this encounter Plan of Treatment Not on file documented as of this encounter Procedures Procedure Name Priority Date/Time Associated Diagnosis Comments FL SPINE OUTSIDE (NO INTERPRETATION) Routine 03/25/2008 12:00 AM EDT documented in this encounter Results * FL Spine Outside (No Interpretation) (03/25/2008 12:00 AM EDT) Narrative [facility] - 05/21/2024 12:57 PM EDT This study is for PACS storage only and not for interpretation. us Juan Vazquez MD IMG OUTSIDE IMAGING W/OUT INTERP RETATION Final Result [facility] documented in this encounter Visit Diagnoses Not on filedocumented in this encounter Additional Source Comments The information contained in this document represents components of the legal health record. It is not the complete legal health record.[facility]
--- OUTSIDE RECORDS SUMMARY | 2025-05-29 07:44 | XMS_ITS | Encounter Summary ---
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 Name Role Phone Fortino Whitt DO Primary Care Provider [phone] Encounter Details Date Type Department Care Team (Late st Contact Info) Description 01/29/2022 Procedure Pass [facility], [address] [address] Social History Tobacco Use Types Packs/Day Years [...] on filedocumented in this encounter Care Teams Molding Machine Operator Helper Relationship Specialty Start Date End Date Fortino Whitt DO PCP - General Internal Medicine 07/26/17 documented as of this encounter Additional Source Comments The information contained in this document represents components of the legal health record. It is not the complete legal health record.[facility]
--- OUTSIDE RECORDS SUMMARY | 2025-05-29 07:44 | XMS_ITS | Encounter Summary ---
Author Organization [facility] Address [address] [place] [address] Phone Care Team Providers Care Applications Engineer Manufacturing Name Role Phone Fortino Whitt DO Primary Care Provider [phone] Encounter Details Date Type Department Care Team (Late st Contact Info) Description 12/02/2020 Procedure Pass [facility] [place] [place] [address] Social History Tobacco Use Types Packs/Day Years [...] on filedocumented in this encounter Care Teams Applications Engineer Manufacturing Relationship Specialty Start Date End Date Fortino Whitt DO PCP - General Internal Medicine 07/26/17 documented as of this encounter Additional Source Comments The information contained in this document represents components of the legal health record. It is not the complete legal health record.[facility]
--- OUTSIDE RECORDS SUMMARY | 2025-05-29 07:44 | XMS_ITS | Encounter Summary ---
Author Organization [facility] Address [address] [place] [address] Phone Care Team Providers Care Mechatronics Technologist Name Role Phone DeniseFortino bonner Primary Care Provider [phone] Encounter Details Date Type Department Care Team (Latest Contact Info) Description 11/18/2021 Transcribe Orders Virtual Department [address] [place] [address] Francoise Paz PA [address] [place] [address] [place] [address] Right knee pain, unspecified chronicity (Primary Dx) Social History Tobacco Use Types Packs/Day Years [...] on file documented as of this encounter Results * XR KNEE 4 OR MORE VIEWS (RIGHT) (11/24/2021 2:49 PM EDT) Anatomical Region Laterality Modality Knee Right Computed Radiogr aphy 11/25/2021 9:33 AM EDT Impressions 11/25/2021 10:13 AM EDT Very mild degenerative changes. No other explanation for pain. POS - [id number] Narrative 11/25/2021 10:13 AM EDT HISTORY: Chronic right knee pain for approximately a year. COMPARISON: None. VIEWS: Standing AP view of the knees and 3 separate views of the right knee. FINDINGS: Very mild joint space narrowing at the medial compartment on the right. Minimal marginal spurring. Mild spurring of the tibial spines. No evidence of erosions. No fractures, subluxations or dislocations. No suspicious lytic or blastic lesions within the bones. No definite joint effusion. Procedure Note Clifton Hitlon MD - 11/25/2021 HISTORY: Chronic right knee pain for approximately a year. COMPARISON: None. VIEWS: Standing AP view of the knees and 3 separate views of the rightknee. FINDINGS: Very mild joint space narrowing at the medial compartment on the right.Minimal marginal spurring. Mild spurring of the tibial spines. No evidenceof erosions. No fractures, subluxations or dislocations. No suspicious lytic or blasticlesions within the bones. No definite joint effusion. IMPRESSION: Very mild degenerative changes. No other explanation for pain. POS - [id number] Francoise CARABALLO IMG XR LOWER EXTREMITY Jess l Result documented in this encounter Visit Diagnoses Diagnosis Right knee pain, unspecified chronicity- Primary Right knee pain, unspecified chronicity documented in this encounter Care Teams Mechatronics Technologist Relationship Specialty Start Date End Date Fortino Whitt DO [email or web address] PCP - General Internal Medicine 07/26/17 documented as of this encounter Additional Source Comments The information contained in this document represents components of the legal health record. It is not the complete legal health record.[facility]
--- OUTSIDE RECORDS SUMMARY | 2025-05-29 07:44 | XMS_ITS | Encounter Summary ---
Author Organization [facility] Address [address] [place] [address] Phone Care Team Providers Care Spray Gun Repairer Name Role Phone Fortino Whitt DO Primary Care Provider [phone] Encounter Details Date Type Department Care Team (Late st Contact Info) Description 12/10/2022 Procedure Pass [address] [place] [address] Social History Tobacco Use Types Packs/Day Years [...] on filedocumented in this encounter Care Teams Spray Gun Repairer Relationship Specialty Start Date End Date Fortino Whitt DO PCP - General Internal Medicine 07/26/17 documented as of this encounter Additional Source Comments The information contained in this document represents components of the legal health record. It is not the complete legal health record.[facility]
--- OUTSIDE RECORDS SUMMARY | 2025-05-29 07:44 | XMS_ITS | Encounter Summary ---
Author Organization [facility] Address [address] [place] [address] Phone Care Team Providers Care Income Tax Auditor Name Role Phone Fortino Whitt DO Primary Care Provider [phone] Reason for Referral * MRI/CAT Scan - Closed Specialty Diagnoses / Procedures Referred By Contac t Referred To Contact Radiology Diagnoses Right knee pain, unspecified chronicity Procedures MRI Knee (Right) Fortino Whitt DO Phone: tel: fax: [email or web address] Referral ID Status Reason Start Date Expiration Date Visits Re quested Visits Authorized [id number] Closed 01/29/2022 01/29/2023 1 1 Encounter Details Date Type Department Care Team (Late st Contact Info) Description 01/29/2022 Transcribe Orders Virtual Department [address] [place] [address] Fortino Whitt DO [address] [place] [address] [place] [address] [email or web address] Right knee pain, unspecified chronicity (Primary Dx) [...] documented as of this encounter Results * MRI KNEE WITHOUT CONTRAST (RIGHT) (02/14/2022 8:09 AM EDT) Anatomical Region Laterality Modality Knee Right Magnetic Resonan ce 02/14/2022 4:12 PM EDT Impressions 02/14/2022 4:22 PM EDT Complex medial meniscal tear with mild extrusion and adjacent soft tissue edema. Lateral meniscal tear. Mild medial and patellofemoral compartment cartilage degeneration. Narrative 02/14/2022 4:22 PM EDT MRI KNEE WITHOUT CONTRAST (RIGHT) TECHNIQUE:Multi-sequence, multi-planar MRI of the knee without intravenous contrast. COMPARISON: XR KNEE 4 OR MORE VIEWS (RIGHT) FINDINGS: Medial Compartment: Complex tear involving the medial meniscus extending from the anterior body to the posterior horn with adjacent soft tissue edema. Mild meniscal extrusion. Partial-thickness femoral chondral fissuring. No subchondral edema. Lateral Compartment: Horizontal-oblique tear of the lateral meniscus anterior horn contacting the femoral articular surface. No cartilage defect or subchondral edema. Patellofemoral Compartment: Full-thickness chondral fissuring at the patellar median ridge and lateral trochlea with subchondral edema. Tendons: Quadriceps, patellar, and popliteus tendons are intact. Ligaments: Cruciate ligaments are intact. Collateral ligaments are intact. Bones: No fracture, osteonecrosis, or focal lesion. Joint: Minimal joint effusion with synovitis. No popliteal cyst. Other: There is prepatellar bursitis. Procedure Note Kayleen Osorio MD - 02/14/2022 MRI KNEE WITHOUT CONTRAST (RIGHT) TECHNIQUE:Multi-sequence, multi-planar MRI of the knee without intravenouscontrast. COMPARISON: XR KNEE 4 OR MORE VIEWS (RIGHT) FINDINGS: Medial Compartment: Complex tear involving the medial meniscus extendingfrom the anterior body to the posterior horn with adjacent soft tissueedema. Mild meniscal extrusion. Partial-thickness femoral chondralfissuring. No subchondral edema. Lateral Compartment: Horizontal-oblique tear of the lateral meniscusanterior horn contacting the femoral articular surface. No cartilagedefect or subchondral edema. Patellofemoral Compartment: Full-thickness chondral fissuring at thepatellar median ridge and lateral trochlea with subchondral edema. Tendons: Quadriceps, patellar, and popliteus tendons are intact. Ligaments: Cruciate ligaments are intact. Collateral ligaments areintact. Bones: No fracture, osteonecrosis, or focal lesion. Joint: Minimal joint effusion with synovitis. No popliteal cyst. Other: There is prepatellar bursitis. IMPRESSION: Complex medial meniscal tear with mild extrusion and adjacent soft tissueedema. Lateral meniscal tear. Mild medial and patellofemoral compartment cartilage degeneration. Fortino Whitt DO IMG MR EXTREMITY Final Result documented in this encounter Visit Diagnoses Diagnosis Right knee pain, unspecified chronicity- Primary Right knee pain, unspecified chronicity documented in this encounter Care Teams Income Tax Auditor Relationship Specialty Start Date End Date Fortino Whitt DO [email or web address] PCP - General Internal Medicine 07/26/17 documented as of this encounter Additional Source Comments The information contained in this document represents components of the legal health record. It is not the complete legal health record.[facility]
--- OUTSIDE RECORDS SUMMARY | 2025-05-29 07:45 | XMS_ITS | Encounter Summary ---
Author Organization [facility] Address [address] [place] [address] Phone Care Team Providers Care Dinkey Locomotive Operator Name Role Phone Fortino Whitt DO Primary Care Provider [phone] Encounter Details Date Type Department Care Team (Late st Contact Info) Description 12/10/2022 Procedure Pass [address] [place] [address] Social History Tobacco Use Types Packs/Day Years [...] on filedocumented in this encounter Care Teams Dinkey Locomotive Operator Relationship Specialty Start Date End Date Fortino Whitt DO PCP - General Internal Medicine 07/26/17 documented as of this encounter Additional Source Comments The information contained in this document represents components of the legal health record. It is not the complete legal health record.[facility]
--- OUTSIDE RECORDS SUMMARY | 2025-05-29 07:45 | XMS_ITS | Clinical Summary ---
Author Organization [facility] Address [address] [place] [address] Phone Care Team Providers Care Java Developer Consultant Name Role Phone Mayra Obregon Primary Care Provider [phone] Allergies No known active allergies Medications losartan (COZAAR) 50 MG tablet Take 50 mg by mouth daily. Active diclofenac sodium (VOLTAREN) 75 MG EC tablet Take 75 mg by mouth daily. Active fluticasone propionate (FLONASE) 50 mcg/actuation nasal spray 1 spray by Nasal route 2 (two) times a day. 1 Bottle 11 1 Active Additional Information Patient not taking.Reported on 06/25/2024 colchicine (COLCRYS) 0.6 mg tablet Take 0.6 mg by mouth daily as needed. 4 Active pregabalin (LYRICA) 75 MG capsule Take 75 mg by mouth 2 (two) times a day as needed. Active Active Problems Problem Noted Date Diagnosed Date Left carpal tunnel syndrome 12/28/2023 Trigger finger, left middle finger 12/28/2023 Immunizations Immunization Administration Dates Next Due Tdap 01/17/2018 Family History Medical History Relation Comments Cancer Mother Relation Status Comments Mother Social History Tobacco Use Types Packs/Day Years Used Date Smoking Tobacco: Never Smokeless Tobacco: Never Tobacco Cessation:Counseling Given: Not Answered Alcohol Use Standard Drinks/Week Comments Not Currently [...] on file Sexual Orientation Not on file Last Filed Vital Signs Vital Sign Reading Time Taken Comments Blood Pressure 127/76 06/28/2024 10:18 AM EST Pulse 84 06/28/2024 10:18 AM EST Temperature 36.3 C (97.4 F) 06/28/2024 8:29 AM EST Respiratory Rate 18 06/28/2024 10:18 AM EST Oxygen Saturation 94% 06/28/2024 10:18 AM EST Inhaled Oxygen Concentration - - Weight 119.3 kg (263 lb) 06/25/2024 10:52 AM EST Height 177.8 cm (5' 10 ) 06/25/2024 10:52 AM EST Body Mass Index 37.74 06/25/2024 10:52 AM EST Plan of Treatment Health Maintenance Due Date Last Done Comments LIPID PANEL 1960 DEPRESSION SCREENING 1973 HEPATITIS C SCREENING 1979 HIV ONE-TIME SCREENING (18-6 5 YEARS) 1979 COLOGUARD 2006 FIT TEST 2006 FOBT 2006 SIGMOIDOSCOPY 2006 VIRTUAL COLONOSCOPY 2006 PNEUMOCOCCAL VACCINES (50+ years) (1 of 1 - PCV) 2011 ZOSTER VACCINES (1 of 2) 2011 CREATININE LEVEL 05/27/2023 05/27/2022 POTASSIUM LEVEL 05/27/2023 05/27/2022 INFLUENZA VACCINE (#1) 2025 COVID-19 VACCINE (3 2024-2 6 season) 2025 04/05/2021, 03/15/2021 SCREENING FOR DIABETES 05/16/2026 3, 05/27/2022 Adult Td,Tdap Booster 01/18/2028 01/17/2018 COLONOSCOPY 06/28/2034 06/28/2024, 10/18/2017 COLORECTAL CANCER SCREENING 06/28/2034 RSV VACCINE (1 - 1-dose 75+ series) 2036 SMOKING STATUS SCREENING (On ce After 26 Yrs) Completed 06/28/2024 HEPATITIS A VACCINES Aged Out No long er eligible based on patient's age to complete this topic HIB VACCINES Aged Out No longer eligi ble based on patient's age to complete this topic MENINGOCOCCAL VACCINES (ACWY) Aged Out No longer eligible based on patient's age to complete this topic MENINGOCOCCAL VACCINES (B) Aged Out N o longer eligible based on patient's age to complete this topic Medical Devices Implanted Type Area Water Meter Mechanic Device Identifier Shelf Expiration Date Model / Serial / Lot Mesh Mesh Abdomen Procedures Procedure Name Priority Date/Time Associated Diagnosis Comments ENDOSCOPY, COLON 06/28/2024 9:38 AM EST COMPREHENSIVE METABOLIC PANEL Routine 05/27/2022 8:47 AM EDT Hyperkalemia from Last 3 Months or Most Recently Relevant to Health Maintenance Results * ENDOSCOPY, COLON (06/28/2024 9:38 AM EST) Narrative Transcriptions Marvin Ochoa MD - 06/28/2024 9:38 AM EST [facility] Patient Name: Remy Hernández Attending MD:: MARVIN OCHOA MD, Procedure Date: 06/28/2024 9:38 AM Date of : 1960 Age: 64 Admit Type: Outpatient Gender: Male Room: [place] [address] Referring MD: MAYRA OBREGON DO Exam Type: Colonoscopy Indications: High risk colon cancer surveillance: Personalhistory of colonic polyps, Last colonoscopy: September 2017, Incidental diarrhea noted Medications: Propofol per Anesthesia Procedure: Informed consent was obtained from the patientafter discussion of the indications, limitations, alternatives, benefits, and risks of the procedure. Risks specifically discussed include but are not limited to medication reactions, missed lesions, bleeding, perforation, or the need for emergent surgery. Throughout the procedure, the patient's blood pressure, pulse, end-tidal CO2, and oxygensaturations were monitored continuously. The Olympus adult variable colonoscope [id number] #1 was introduced through the anus and advanced to the cecum, identified by appendiceal orifice andileocecal valve. The ileocecal valve, appendiceal orifice,and rectum were photographed. The colonoscopy was performed without difficulty. The patient tolerated the procedure well. The quality of the bowel preparation was adequate. The bowel preparationused was GoLYTELY via split dose instruction. Complications: No immediate complications. Estimated blood loss: Minimal. Findings: The perianal and digital rectal examinations were normal. Pertinent negatives include normal prostate (size, shape, and consistency). The entire examined colon appeared normal on direct and retroflexion views. Retroflexion in the right colon was performed. Biopsies for histology were taken with a coldforceps from the left colon and transverse colon for evaluation of microscopic colitis. Impression: - The entire examined colon is normal on direct and retroflexion views. - Biopsies were taken with a cold forceps from the left colon and transverse colon for evaluation of microscopic colitis. Recommendation: - Repeat colonoscopy 7-8 years for surveillance. - Await pathology results. - Use fiber, for example Citrucel, Fibercon, Konsylor Metamucil. - Start with 1 tablespoon daily in water or juice.If no significant improvement in 1-2 weeks, increaseto 2X/d. MARVIN OCHOA MD 06/28/2024 10:06:13 AM This report has been signed electronically. Number of Addenda: 0 Note Initiated On: 06/28/2024 9:38 AM Procedure Code(s): --- Professional --- 10986, Colonoscopy, flexible; with biopsy, single or multiple --- Technical --- 36713, Colonoscopy, flexible; with biopsy, single or multiple Diagnosis Code(s): --- Professional --- Z86.010, Personal history of colonic polyps --- Technical --- Z86.010, Personal history of colonic polyps CPT copyright 2021 [employer]. All rights reserved. The codes documented in this report are preliminary and upon automation technologist reviewmay be revised to meet current compliance requirements. Procedure Date: 06/28/2024 9:38:[address] [place] [address] [place] Mayra Obregon DO GI PROCEDURE ORDERABLES Final Re sult * (ABNORMAL) Comprehensive metabolic panel (05/27/2022 8:47 AM EDT) SODIUM 141 133 - 146 mmol/L [facility] POTASSIUM 5.1 3.3 - 5.1 mmol/L [facility] CHLORIDE 105 96 - 108 mmol/L [facility] CO2 24 21 - 35 mmol/L [facility] BUN 20(H) 6 - 19 mg/dL [facility] CREATININE 1.00 0.5 - 1.5 mg/dL [facility] GLUCOSE 101(H) 70 - 99 mg/dL [facility] ALBUMIN 4.3 3.9 - 4.8 g/dL [facility] TOTAL PROTEIN 6.9 6.5 - 8.0 g/dL [facility] CALCIUM 9.2 8.4 - 10.3 mg/dL [facility] ALKALINE PHOSPHATASE 70 39 - 117 U/L [facility] TOTAL BILIRUBIN 0.5 0.0 - 1.2 mg/dL [facility] AST 63(H) 0 - 37 U/L [facility] ALT 92(H) 0 - 40 U/L [facility] GLOBULIN 2.6 1 - 4.8 g/dL [facility] EGFR 86 >59 mL/min/1.7 3m2 [facility] Comment:Estimated glomerular filtration rate calculated using the CKD-EPI refit equation. ANION GAP 17 10 - 20 mmol/L [facility] Blood 05/27/2022 8:47 AM EDT 05/27/2022 8:49 AM EDT us Mayra Obregon DO LAB BLOOD ORDERABLES Final Resul t [facility] [address] [place] [address] from Last 3 Months or Most Recently Relevant to Health Maintenance Insurance [facility] [employer] ADMINISTRATORS [facility] [employer] BENEFITS ADMINISTRATORS [employer] BENEFITS ADMINISTRATORS [employer] BENEFITS ADMINISTRATORS [employer] BENEFITS ADMINISTRATORS [facility] BENEFITS ADMINISTRATORS Care Teams Java Developer Consultant Relationship Specialty Start Date End Date Mayra Obregon DO [email or web address] PCP - General Internal Medicine 07/26/17 Additional Source Comments The information contained in this document represents components of the legal health record. It is not the complete legal health record.[facility]
--- OUTSIDE RECORDS SUMMARY | 2025-05-29 07:45 | XMS_ITS | Encounter Summary ---
Author Organization [facility] Address [address] [place] [address] Phone Care Team Providers Care Gas Station Service Attendant Name Role Phone Deniseha Fortino Gamal JIMENEZ Primary Care Provider [phone] Encounter Details Date Type Department Care Team ([facility] st Contact Info) Description 06/28/2024 Procedure Pass [facility] Endoscopy Admitting Dept Virtual Department [address] [place] [address] Social History Tobacco Use Types Packs/Day Years [...] on filedocumented in this encounter Care Teams Gas Station Service Attendant Relationship Specialty Start Date End Date Fortino Whitt DO [email or web address] PCP - General Internal Medicine 07/26/17 documented as of this encounter Additional Source Comments The information contained in this document represents components of the legal health record. It is not the complete legal health record.[facility]
--- OUTSIDE RECORDS SUMMARY | 2025-05-29 07:45 | XMS_ITS | Encounter Summary ---
Author Organization [facility] Address [address] [place] [address] Phone Care Team Providers Care Food Cooking Machine Operator Name Role Phone Fortino Whitt DO Primary Care Provider [phone] Encounter Details Date Type Department Care Team (Late st Contact Info) Description 10/18/2017 Procedure Pass [facility] Endoscopy Admitting Dept Virtual Department [address] [place] [address] Social History Tobacco Use Types Packs/Day Years [...] on filedocumented in this encounter Care Teams Food Cooking Machine Operator Relationship Specialty Start Date End Date Fortino Whitt DO PCP - General Internal Medicine 07/26/17 documented as of this encounter Additional Source Comments The information contained in this document represents components of the legal health record. It is not the complete legal health record.[facility]
--- OUTSIDE RECORDS SUMMARY | 2025-05-29 07:45 | XMS_ITS | Encounter Summary ---
Author Organization [facility] Address [address] [facility] [address] [place] [address] Phone Care Team Providers Care Crew Leader Name Role Phone Fortino Whitt DO Primary Care Provider [phone] Encounter Details Date Type Department Care Team (Late st Contact Info) Description 12/28/2023 Procedure Pass [place] Admitting Dept - Virtual Department [address] [place] [address] Social History Tobacco Use Types Packs/Day Years [...] with a working camera? Not on file Sex and Gender Information Value Date Recorded Sex Assigned at Not on file Legal Sex Male 9:47 PM EDT Gender Identity Not on file Sexual Orientation Not on file documented as of this encounter Plan of Treatment Not on file documented as of this encounter Visit Diagnoses Not on filedocumented in this encounter Care Teams Crew Leader Relationship Specialty Start Date End Date Fortino Whitt DO PCP - General Internal Medicine 07/26/17 documented as of this encounter Additional Source Comments The information contained in this document represents components of the legal health record. It is not the complete legal health record.[facility]
--- OUTSIDE RECORDS SUMMARY | 2025-05-29 07:45 | XMS_ITS | Encounter Summary ---
Author Organization [facility] Address [address] [address] Phone Care Team Providers Care Clinical Statistics Manager Name Role Phone Fortino Whitt DO Primary Care Provider [phone] Encounter Details Date Type Department Care Team ([facility] st Contact Info) Description 07/26/2017 Ancillary Orders Virtual Department [address] [place] [address] Fortino Whitt DO [address] [facility] [place] [address] [place] [address] [email or web address] Dysphagia, unspecified type Social History Tobacco Use Types Packs/Day Years Used Date Smoking Tobacco: Never Assessed Sex and Gender Information Value Date Recorded Sex Assigned at Not on file Legal Sex Male 9:47 PM EDT Gender Identity Not on file Sexual Orientation Not on file documented as of this encounter Plan of Treatment Not on file documented as of this encounter Results * FL BARIUM SWALLOW ESOPHAGRAM SINGLE CONTRAST (08/04/2017 8:57 AM EST) Anatomical Region Laterality Modality Chest Radiographic Fransisca ging 08/04/2017 9:21 AM EST Impressions 08/04/2017 9:24 AM EST Small sliding-type hiatal hernia without spontaneous gastroesophageal reflux or significant esophageal dysmotility or mucosal pathology demonstrated. FLUOROSCOPY TIME: 1 min. 20 sec; 57 IMAGES/FRAMES POS - [id number] Narrative 08/04/2017 9:24 AM EST COMPARISON: None FINDINGS: A preliminary lateral view of the neck reveals no large ventral osteophytes or other significant abnormality. A standard double contrast study was performed and recorded on digital rapid sequence, spot, and overhead views. Following ingestion of the contrast mixture deglutition was assessed fluoroscopically and found to be grossly normal without evidence of aspiration or cricopharyngeal or distal esophageal achalasia no abnormal propulsive waves were demonstrated. No esophageal mucosal ulcerations or strictures were apparent. A small sliding-type hiatal hernia was elicited during a prone Valsalva maneuver. No spontaneous gastroesophageal reflux was noted during the course of the examination. Procedure Note Marvin James MD - 08/04/2017 COMPARISON: None FINDINGS: A preliminary lateral view of the neck reveals no large ventralosteophytes or other significant abnormality. A standard double contraststudy was performed and recorded on digital rapid sequence, spot, andoverhead views. Following ingestion of the contrast mixture deglutition was assessedfluoroscopically and found to be grossly normal without evidence ofaspiration or cricopharyngeal or distal esophageal achalasia no abnormalpropulsive waves were demonstrated. No esophageal mucosal ulcerations orstrictures were apparent. A small sliding-type hiatal hernia was elicitedduring a prone Valsalva maneuver. No spontaneous gastroesophageal refluxwas noted during the course of the examination. IMPRESSION: Small sliding-type hiatal hernia without spontaneous gastroesophagealreflux or significant esophageal dysmotility or mucosal pathologydemonstrated. FLUOROSCOPY TIME: 1 min. 20 sec; 57 IMAGES/FRAMES POS - [id number] Fortino Whitt DO IMG FL MISC Final Result documented in this encounter Visit Diagnoses Diagnosis Dysphagia, unspecified type Dysphagia, unspecified type documented in this encounter Care Teams Clinical Statistics Manager Relationship Specialty Start Date End Date Fortino Whitt DO PCP - General Internal Medicine 07/26/17 documented as of this encounter Additional Source Comments The information contained in this document represents components of the legal health record. It is not the complete legal health record.[facility]
--- OUTSIDE RECORDS SUMMARY | 2025-05-29 07:45 | XMS_ITS | Encounter Summary ---
Author Organization [facility] Address [address] [facility] [address] [place] [address] Phone Care Team Providers Care Soda Fountain Manager Name Role Phone Fortino Whitt DO Primary Care Provider [phone] Reason for Referral * MRI/CAT Scan - Closed Specialty Diagnoses / Procedures Referred By Contac t Referred To Contact Radiology Diagnoses Other intervertebral disc degeneration, thoracic region Procedures MRI Thoracic Spine Francoise Paz PA [address] [place] [address] Phone: tel: fax: Referral ID Status Reason Start Date Expiration Date Visits Re quested Visits Authorized [id number] Closed 12/10/2022 1 1 * MRI/CAT Scan - Closed Specialty Diagnoses / Procedures Referred By Contac t Referred To Contact Radiology Diagnoses Radiculopathy, lumbar region Procedures MRI Lumbar Spine Francoise Paz PA [address] [facility] [place] [address] Phone: tel: fax: Referral ID Status Reason Start Date Expiration Date Visits Re quested Visits Authorized [id number] Closed 12/10/2022 1 1 Encounter Details Date Type Department Care Team (Latest Contact Info) Description 12/10/2022 Transcribe Orders Virtual Department [address] [place] [address] Francoise Paz PA [address] [place] [address] Radiculopathy, lumbar region (Primary Dx); Other intervertebral disc degeneration, thoracic region Social History Tobacco Use Types Packs/Day Years [...] as of this encounter Results * MRI LUMBAR SPINE (NEURO) WITHOUT CONTRAST (12/29/2022 8:32 AM EDT) Anatomical Region Laterality Modality L-spine Magnetic Resonan ce 12/30/2022 8:29 AM EDT Impressions 01/01/2023 6:13 AM EDT Disc and facet degenerative changes at L4-L5 resulting in severe spinal canal stenosis, as well as moderate right and mild to moderate left foraminal stenosis. No evidence of high-grade foraminal or significant spinal canal stenosis elsewhere in the lumbar spine. Minimal thoracic spine degenerative changes, without evidence of significant spinal canal stenosis or high-grade foraminal stenosis. Narrative 01/01/2023 6:13 AM EDT MRI THORACIC SPINE (NEURO) WITHOUT CONTRAST, MRI LUMBAR SPINE (NEURO) WITHOUT CONTRAST TECHNIQUE: MRI THORACIC SPINE (NEURO) WITHOUT CONTRAST, MRI LUMBAR SPINE (NEURO) WITHOUT CONTRAST Multi-sequence, multi-planar MRI of the thoracic spine was performed without intravenous contrast. Multi-sequence, multi-planar MRI of the lumbar spine was performed without intravenous contrast. COMPARISON: None FINDINGS: THORACIC SPINE: Alignment and Vertebrae: Minimal dextroconvex curvature centered in the midthoracic spine. No compression fracture. Marrow: No bone marrow replacing lesion. Discs, endplates, facets, and foramina: Normal intervertebral disc heights and signal. Scattered facet degenerative changes. Likely 9 mm perineural cyst in the left T10-T11 neural foramen. Otherwise, no evidence of high-grade foraminal stenosis or significant spinal canal stenosis. Scattered mild marginal osteophyte formation. Spinal Cord: Normal. No spinal cord compression or signal abnormality. Soft Tissue: Normal. No prevertebral edema. Other Findings: None. LUMBAR SPINE: Alignment and Vertebrae: Normal alignment. No compression fracture. Marrow: No bone marrow replacing lesion. Discs and Endplates: Mild disc space narrowing at L4-L5. Prior interbody fusion at L5-S1. Minimal vertebral endplate edema on the right at L4-L5. Conus: Normal. Soft Tissues: Normal. No prevertebral edema. Other Findings: None. Findings by level: T12-L1: Normal. No spinal or foraminal stenosis. L1-L2: Normal. No spinal or foraminal stenosis. L2-L3: Diffuse disc bulge. No significant neural foraminal or spinal canal stenosis. L3-L4: Diffuse disc bulge. Mild facet arthropathy. Mild left foraminal stenosis. No significant spinal canal stenosis. L4-L5: Diffuse disc bulge, with superimposed central and right lateral paracentral disc protrusion, as well as severe bilateral facet arthropathy and ligamentum flavum thickening. There is moderate right and mild to moderate left foraminal stenosis, as well as severe spinal canal stenosis. L5-S1: Post interbody fusion. No significant neural foraminal or spinal canal stenosis. Procedure Note Isidro Smith MD - 01/01/2023 MRI THORACIC SPINE (NEURO) WITHOUT CONTRAST, MRI LUMBAR SPINE (NEURO)WITHOUT CONTRAST TECHNIQUE: MRI THORACIC SPINE (NEURO) WITHOUT CONTRAST, MRI LUMBAR SPINE(NEURO) WITHOUT CONTRAST Multi-sequence, multi-planar MRI of the thoracic spine was performedwithout intravenous contrast. Multi-sequence, multi-planar MRI of the lumbar spine was performed withoutintravenous contrast. COMPARISON: None FINDINGS: THORACIC SPINE: Alignment and Vertebrae: Minimal dextroconvex curvature centered in themidthoracic spine. No compression fracture. Marrow: No bone marrow replacing lesion. Discs, endplates, facets, and foramina: Normal intervertebral disc heightsand signal. Scattered facet degenerative changes. Likely 9 mm perineuralcyst in the left T10-T11 neural foramen. Otherwise, no evidence ofhigh-grade foraminal stenosis or significant spinal canal stenosis.Scattered mild marginal osteophyte formation. Spinal Cord: Normal. No spinal cord compression or signal abnormality. Soft Tissue: Normal. No prevertebral edema. Other Findings: None. LUMBAR SPINE: Alignment and Vertebrae: Normal alignment. No compression fracture. Marrow: No bone marrow replacing lesion. Discs and Endplates: Mild disc space narrowing at L4-L5. Prior interbodyfusion at L5-S1. Minimal vertebral endplate edema on the right at L4-L5. Conus: Normal. Soft Tissues: Normal. No prevertebral edema. Other Findings: None. Findings by level: T12-L1: Normal. No spinal or foraminal stenosis. L1-L2: Normal. No spinal or foraminal stenosis. L2-L3: Diffuse disc bulge. No significant neural foraminal or spinal canalstenosis. L3-L4: Diffuse disc bulge. Mild facet arthropathy. Mild left foraminalstenosis. No significant spinal canal stenosis. L4-L5: Diffuse disc bulge, with superimposed central and right lateralparacentral disc protrusion, as well as severe bilateral facet arthropathyand ligamentum flavum thickening. There is moderate right and mild tomoderate left foraminal stenosis, as well as severe spinal canalstenosis. L5-S1: Post interbody fusion. No significant neural foraminal or spinalcanal stenosis. IMPRESSION: Disc and facet degenerative changes at L4-L5 resulting in severe spinalcanal stenosis, as well as moderate right and mild to moderate leftforaminal stenosis. No evidence of high-grade foraminal or significantspinal canal stenosis elsewhere in the lumbar spine. Minimal thoracic spine degenerative changes, without evidence ofsignificant spinal canal stenosis or high-grade foraminal stenosis. us Francoise CARABALLO IMG MR XSPECIALTY Final Res ult * MRI THORACIC SPINE (NEURO) WITHOUT CONTRAST (12/29/2022 8:13 AM EDT) Anatomical Region Laterality Modality T-spine Magnetic Resonan ce 12/30/2022 8:29 AM EDT Impressions 01/01/2023 6:13 AM EDT Disc and facet degenerative changes at L4-L5 resulting in severe spinal canal stenosis, as well as moderate right and mild to moderate left foraminal stenosis. No evidence of high-grade foraminal or significant spinal canal stenosis elsewhere in the lumbar spine. Minimal thoracic spine degenerative changes, without evidence of significant spinal canal stenosis or high-grade foraminal stenosis. Narrative 01/01/2023 6:13 AM EDT MRI THORACIC SPINE (NEURO) WITHOUT CONTRAST, MRI LUMBAR SPINE (NEURO) WITHOUT CONTRAST TECHNIQUE: MRI THORACIC SPINE (NEURO) WITHOUT CONTRAST, MRI LUMBAR SPINE (NEURO) WITHOUT CONTRAST Multi-sequence, multi-planar MRI of the thoracic spine was performed without intravenous contrast. Multi-sequence, multi-planar MRI of the lumbar spine was performed without intravenous contrast. COMPARISON: None FINDINGS: THORACIC SPINE: Alignment and Vertebrae: Minimal dextroconvex curvature centered in the midthoracic spine. No compression fracture. Marrow: No bone marrow replacing lesion. Discs, endplates, facets, and foramina: Normal intervertebral disc heights and signal. Scattered facet degenerative changes. Likely 9 mm perineural cyst in the left T10-T11 neural foramen. Otherwise, no evidence of high-grade foraminal stenosis or significant spinal canal stenosis. Scattered mild marginal osteophyte formation. Spinal Cord: Normal. No spinal cord compression or signal abnormality. Soft Tissue: Normal. No prevertebral edema. Other Findings: None. LUMBAR SPINE: Alignment and Vertebrae: Normal alignment. No compression fracture. Marrow: No bone marrow replacing lesion. Discs and Endplates: Mild disc space narrowing at L4-L5. Prior interbody fusion at L5-S1. Minimal vertebral endplate edema on the right at L4-L5. Conus: Normal. Soft Tissues: Normal. No prevertebral edema. Other Findings: None. Findings by level: T12-L1: Normal. No spinal or foraminal stenosis. L1-L2: Normal. No spinal or foraminal stenosis. L2-L3: Diffuse disc bulge. No significant neural foraminal or spinal canal stenosis. L3-L4: Diffuse disc bulge. Mild facet arthropathy. Mild left foraminal stenosis. No significant spinal canal stenosis. L4-L5: Diffuse disc bulge, with superimposed central and right lateral paracentral disc protrusion, as well as severe bilateral facet arthropathy and ligamentum flavum thickening. There is moderate right and mild to moderate left foraminal stenosis, as well as severe spinal canal stenosis. L5-S1: Post interbody fusion. No significant neural foraminal or spinal canal stenosis. Procedure Note Isidro Smith MD - 01/01/2023 MRI THORACIC SPINE (NEURO) WITHOUT CONTRAST, MRI LUMBAR SPINE (NEURO)WITHOUT CONTRAST TECHNIQUE: MRI THORACIC SPINE (NEURO) WITHOUT CONTRAST, MRI LUMBAR SPINE(NEURO) WITHOUT CONTRAST Multi-sequence, multi-planar MRI of the thoracic spine was performedwithout intravenous contrast. Multi-sequence, multi-planar MRI of the lumbar spine was performed withoutintravenous contrast. COMPARISON: None FINDINGS: THORACIC SPINE: Alignment and Vertebrae: Minimal dextroconvex curvature centered in themidthoracic spine. No compression fracture. Marrow: No bone marrow replacing lesion. Discs, endplates, facets, and foramina: Normal intervertebral disc heightsand signal. Scattered facet degenerative changes. Likely 9 mm perineuralcyst in the left T10-T11 neural foramen. Otherwise, no evidence ofhigh-grade foraminal stenosis or significant spinal canal stenosis.Scattered mild marginal osteophyte formation. Spinal Cord: Normal. No spinal cord compression or signal abnormality. Soft Tissue: Normal. No prevertebral edema. Other Findings: None. LUMBAR SPINE: Alignment and Vertebrae: Normal alignment. No compression fracture. Marrow: No bone marrow replacing lesion. Discs and Endplates: Mild disc space narrowing at L4-L5. Prior interbodyfusion at L5-S1. Minimal vertebral endplate edema on the right at L4-L5. Conus: Normal. Soft Tissues: Normal. No prevertebral edema. Other Findings: None. Findings by level: T12-L1: Normal. No spinal or foraminal stenosis. L1-L2: Normal. No spinal or foraminal stenosis. L2-L3: Diffuse disc bulge. No significant neural foraminal or spinal canalstenosis. L3-L4: Diffuse disc bulge. Mild facet arthropathy. Mild left foraminalstenosis. No significant spinal canal stenosis. L4-L5: Diffuse disc bulge, with superimposed central and right lateralparacentral disc protrusion, as well as severe bilateral facet arthropathyand ligamentum flavum thickening. There is moderate right and mild tomoderate left foraminal stenosis, as well as severe spinal canalstenosis. L5-S1: Post interbody fusion. No significant neural foraminal or spinalcanal stenosis. IMPRESSION: Disc and facet degenerative changes at L4-L5 resulting in severe spinalcanal stenosis, as well as moderate right and mild to moderate leftforaminal stenosis. No evidence of high-grade foraminal or significantspinal canal stenosis elsewhere in the lumbar spine. Minimal thoracic spine degenerative changes, without evidence ofsignificant spinal canal stenosis or high-grade foraminal stenosis. Francoise CARABALLO [facility] MR XSPECIALTY Final Res ult documented in this encounter Visit Diagnoses Diagnosis Radiculopathy, lumbar region- Primary Thoracic or lumbosacral neuritis or radiculitis, unspecified Other intervertebral disc degeneration, thoracic region Radiculopathy, lumbar region Thoracic or lumbosacral neuritis or radiculitis, unspecified Other intervertebral disc degeneration, thoracic region documented in this encounter Care Teams Soda Fountain Manager Relationship Specialty Start Date End Date Fortino Whitt DO [email or web address] PCP - General Internal Medicine 07/26/17 documented as of this encounter Additional Source Comments The information contained in this document represents components of the legal health record. It is not the complete legal health record.[facility]
[2025-05-29 13:43] LABS: MANUAL DIFF FLAG NO
[2025-05-29 13:54] LABS: Hematocrit 47.9 % (42.0-52.0); Hemoglobin 16.2 g/dl (14.0-18.0); Imm Gran Abs Auto 0.02 X10*3/uL (0.00-0.03); Imm Gran Pct Auto 0.3 % (0.0-0.4); Lymphocytes Absolute Auto 1.7 X10*3/uL (1.2-4.9); Mean Corpuscular HGB Conc 33.8 g/dl (31.0-36.0); Mean Corpuscular Hemoglobin 28.6 pg (27.0-33.0); Mean Corpuscular Volume 84.5 fL (80.0-98.0); NRBC Abs Auto 0.000 X10*3/uL (0.0-0.012); NRBC Pct Auto 0.0 /100WBC (0.0-0.2); Platelet Count 201 X10*3/uL (160-400); Red Blood Count 5.67 X10*6/uL (4.60-5.80); White Blood Count 6.6 X10*3/uL (4.8-10.8)
[2025-05-29 14:24] LABS: Prostate Specific Antigen 1.19 ng/mL (<0.05-4.0)
[2025-05-29 14:28] LABS: Alanine Aminotransferase 46 U/L (0-40); Albumin Level 4.4 g/dL (3.5-5.0); Alkaline Phosphatase 70 U/L (39-117); Anion Gap 11 (12-20); Aspartate Amino Transferase 29 U/L (5-37); Blood Urea Nitrogen 24 mg/dL (9-16); Calcium 9.1 mg/dL (8.4-10.2); Carbon Dioxide 26 mmol/L (22-29); Chloride 108 mmol/L (96-108); Cholesterol 197 mg/dL (<200); Estimated Glomerular Filt Rate > 60; HDL Cholesterol 45 mg/dL (>40); Potassium 4.5 mmol/L (3.3-5.1); Sodium 140 mmol/L (135-145); Thyroid Stimulating Hormone 1.78 uIU/mL (0.32-4.0); Total Protein 6.8 g/dL (6.5-8.0); Triglycerides 129 mg/dL (<150)
== END 2025-05-29 07:43 | disposition home or self-care (01) ==
LOC: HO.MANLDS 07:42
PROVIDERS: Visit Provider Internal Medicine
DX: Z12.5 Encounter for screening for malignant neoplasm of prostate (principal); I10 Essential (primary) hypertension
CPT/HCPCS: 36415; 80053; 80061; 84153; 84443; 85025